=== PATIENT | male | born 1950 | race Caucasian/White ===

== ENCOUNTER → 2017-10-16 | Outpatient (CLI) | payer MEDICARE, BC ==
--- NOTE | 2017-10-16 13:15 | XR ---
EXAMINATION TYPE: XR shoulder limited RT DATE OF EXAM: 10/16/2017 CLINICAL HISTORY: Right shoulder pain after falling injury 3 months ago. TECHNIQUE: Three views of the right shoulder are obtained. COMPARISON: None. FINDINGS: Osseous structures are demineralized. There is no acute fracture/dislocation evident in the right shoulder. There is spurring and joint space loss acromioclavicular joint. Glenohumeral joint i s maintained. The visualized ribs are intact and unremarkable. IMPRESSION: There is no acute or healing fracture or dislocation in the right shoulder.
== END | disposition home or self-care (01) ==
LOC: RADXRMAIN 12:09
PROVIDERS: ATTEND Internal Medicine Geriatric Medicine
DX: M25.511 Pain in right shoulder (principal); Z87.828 Personal history of other (healed) physical injury and trauma

== ENCOUNTER 2018-03-02 16:44 | Inpatient (IN) | payer MEDICARE, BC ==
[2018-03-02] MEDS ORDERED: SODIUM CHLORIDE 0.9% 500 ML IV ONE (17:39)
[2018-03-02 18:08] LABS: Basophils % (A) 0 %; Eosinophils # (A) 0.1 k/uL (0-0.7); Eosinophils % (A) 1 %; HCT 40.5 % (39.0-53.0); HGB 13.6 gm/dL (13.0-17.5); Lymphocytes # (A) 1.5 k/uL (1.0-4.8); Lymphocytes % (A) 15 %; MCH 28.9 pg (25.0-35.0); MCHC 33.6 g/dL (31.0-37.0); MCV 86.2 fL (80.0-100.0); Mean Platelet Volume 7.3; Monocytes % (A) 10 %; Neutrophils # (A) 7.4 k/uL (1.3-7.7); Neutrophils % (A) 72 %; Platelet Count 194 k/uL (150-450); WBC 10.4 k/uL (3.8-10.6)
--- NOTE | 2018-03-02 18:15 | ED ---
Skin/Abscess/FB HPI <Tomás Lares - Last Filed: 03/02/18 19:09> - General Source: patient Mode of arrival: ambulatory Limitations: no limitations <Tiffanie Alvarez - Last Filed: 03/02/18 19:45> - General Chief complaint: Skin/Abscess/Foreign Body Stated complaint: RT LEG POSS INFECTION, DIABETIC Time Seen by Provider: 03/02/18 17:19 - History of Present Illness Initial comments: 67-year-old male patient presents the emergency department today for evaluation of worsening cellulitis to the right dorsal foot and ankle. Patient states that he noticed the redness and swelling on Wednesday, did see his primary care physician and was started on doxycycline. States that he has taken 4 doses of the doxycycline however the redness is spreading and the swelling is getting worse. Patient states that the area is painful. He denies any wounds or drainage. States that he did break the toenail off several days prior. Patient does have a history of diabetes and does take both oral medications and insulin. He denies any history of cellulitis. States he did have a temperature on Wednesday of 101F, has had no fever since. Denies taking any pain medication for his symptoms. Patient denies any recent shortness breath, chest pain, abdominal pain, nausea, vomiting, diarrhea, constipation, back pain, numbness, tingling, dizziness, weakness, hematuria, dysuria, urinary urgency, urinary frequency, headache, visual changes, or any other complaints. (Tiffanie Alvarez) - Related Data Home Medications Medication Instructions Recorded Confirmed Insulin NPH Human Isophane 35 unit SQ DAILY 04/05/16 03/02/18 [NovoLIN N] Insulin Regular [HumuLIN R] 25 units SQ AC-SUPPER 04/05/16 03/02/18 Latanoprost Ophth [Xalatan 0.005%] 1 drop BOTH EYES DAILY 04/05/16 03/02/18 Clopidogrel [Plavix] 75 mg PO DAILY 03/02/18 03/02/18 Doxycycline Hyclate [Vibramycin] 100 mg PO BID 03/02/18 03/02/18 Famotidine [Pepcid] 20 mg PO DAILY 03/02/18 03/02/18 Insulin NPH Human Isophane 25 unit SQ HS 03/02/18 03/02/18 [NovoLIN N] metFORMIN HCL [Glucophage] 1,000 mg PO HS 03/02/18 03/02/18 metFORMIN HCL [Glucophage] 500 mg PO DAILY 03/02/18 03/02/18 Previous Rx's Medication Instructions Recorded Aspirin 81 mg PO DAILY #30 chew 04/09/16 Carvedilol [Coreg] 3.125 mg PO AC-BRKFST #60 tab 04/09/16 Losartan [Cozaar] 25 mg PO DAILY #30 tab 04/09/16 Nitroglycerin Sl Tabs [Nitrostat] 0.4 mg SUBLINGUAL Q5M PRN #25 tab 04/09/16 Pravastatin Sodium [Pravachol] 20 mg PO DAILY #30 tab 04/09/16 amLODIPine [Norvasc] 2.5 mg PO DAILY #30 tab 04/09/16 Allergies Allergy/AdvReac Type Severity Reaction Status Date / Time lisinopril AdvReac Cough Verified 03/02/18 16:46 Review of Systems ROS Other: All systems not noted in ROS Statement are negative. <Tomás Lares - Last Filed: 03/02/18 19:09> ROS Other: All systems not noted in ROS Statement are negative. <Tiffanie Alvarez - Last Filed: 03/02/18 19:45> ROS Statement: Those systems with pertinent positive or pertinent negative responses have been documented in the HPI. Past Medical History Past Medical History: Cancer, Diabetes Mellitus, Hypertension, Myocardial Infarction (IA) Additional Past Medical History / Comment(s): Testicular cancer [place] [address] 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 Father Family Medical History: Cancer Additional Family Medical History / Comment(s): Father at age 84 from prostate cancer Brother(s) Family Medical History: Cancer Additional Family Medical History / Comment(s): Patient has 4 brothers with no major medical problems. Sister(s) Family Medical History: Cancer Additional Family Medical History / Comment(s): Patient has 2 sisters with no major medical problems. Daughter(s) Additional Family Medical History / Comment(s): Patient has 2 brothers with no major medical problems. <Tiffanie Alvarez M - Last Filed: 03/02/18 19:45> General Exam Limitations: no limitations General appearance: alert, in no apparent distress, other (This is a well- developed, well-nourished adult male patient in no acute distress. Vital signs upon presentation are temperature 98.1F, pulse 79, respirations 18, blood pressure 131/72, pulse ox 96% on room air.) Eye exam: Present: normal appearance, PERRL, EOMI. Absent: scleral icterus, conjunctival injection, periorbital swelling ENT exam: Present: normal exam, normal oropharynx, mucous membranes moist Respiratory exam: Present: normal lung sounds bilaterally. Absent: respiratory distress, wheezes, rales, rhonchi, stridor Cardiovascular Exam: Present: regular rate, normal rhythm, normal heart sounds. Absent: systolic murmur, diastolic murmur, rubs, gallop, clicks GI/Abdominal exam: Present: soft, normal bowel sounds. Absent: distended, tenderness, guarding, rebound, rigid Extremities exam: Present: full ROM, normal capillary refill, other (Right circumferential ankle and foot swelling. Erythema noted over the right anterior ankle and right dorsal foot. There is red streaking up the leg to about mid calf. Edema is pitting. Patient has good pedal and posttibial pulses.). Absent: normal inspection, tenderness, pedal edema, joint swelling, calf tenderness Neurological exam: Present: alert, oriented X3, CN II-XII intact Psychiatric exam: Present: normal affect, normal mood Skin exam: Present: warm, dry, intact, normal color. Absent: rash <Tiffanie Alvarez M - Last Filed: 03/02/18 19:45> Vital Signs 03/02/18 03/02/18 16:46 19:11 Temperature 98.1 F Pulse Rate 79 70 Respiratory 18 19 Rate Blood Pressure 131/72 158/79 O2 Sat by Pulse 96 99 Oximetry Medical Decision Making - Lab Data Result diagrams: 03/02/18 17:55 03/02/18 17:55 <Tomás Lares - Last Filed: 03/02/18 19:09> - Lab Data Result diagrams: 03/02/18 17:55 03/02/18 17:55 - Radiology Data Radiology results: report reviewed, image reviewed <Tiffanie Alvarez - Last Filed: 03/02/18 19:45> - Medical Decision Making Patient reevaluated by myself, Dr. Lares. Patient does have cellulitic appearing dorsal foot presenting to the ankle and above the midcalf. There is associated tenderness and swelling. Case was discussed in detail with Dr. Escobar , who will admit for Dr. Richardson. She does request Zosyn and consult with Dr. dean (Tomás Lares) 67 year-old male patient presented to the emergency department today for evaluation of sialitis to the right anterior ankle and foot. Physical examination did reveal erythema extending from the dorsal foot to the ankle with evidence of red streaking to approximately mid calf. Neurovascular status was intact. Patient denied any injury. We did obtain x-ray to rule out gas and osteomyelitis. We will start Zosyn keep patient in the hospital for evaluation by infectious disease. Did discuss findings, results, and plan with the patient and family. They are agreeable. My attending spoke to Dr. Gutierrez who accepts admission. (Tiffanie Alvarez) - Lab Data Lab Results 03/02/18 03/02/18 Range/Units 17:55 17:55 WBC 10.4 (3.8-10.6) k/uL RBC 4.70 (4.30-5.90) m/uL Hgb 13.6 (13.0-17.5) gm/dL Hct 40.5 (39.0-53.0) % MCV 86.2 (80.0-100.0) fL MCH 28.9 (25.0-35.0) pg MCHC 33.6 (31.0-37.0) g/dL RDW 14.0 (11.5-15.5) % Plt Count 194 (150-450) k/uL Neutrophils % 72 % Lymphocytes % 15 % Monocytes % 10 % Eosinophils % 1 % Basophils % 0 % Neutrophils # 7.4 (1.3-7.7) k/uL Lymphocytes # 1.5 (1.0-4.8) k/uL Monocytes # 1.0 (0-1.0) k/uL Eosinophils # 0.1 (0-0.7) k/uL Basophils # 0.0 (0-0.2) k/uL Sodium 137 (137-145) mmol/L Potassium 5.1 (3.5-5.1) mmol/L Chloride 103 (98-107) mmol/L Carbon Dioxide 22 (22-30) mmol/L Anion Gap 12 mmol/L BUN 33 H (9-20) mg/dL Creatinine 1.50 H (0.66-1.25) mg/dL Est GFR (CKD-EPI)AfAm 56 (>60 ml/min/1.73 sqM) Est GFR (CKD-EPI)NonAf 48 (>60 ml/min/1.73 sqM) Glucose 316 H (74-99) mg/dL Calcium 9.2 (8.4-10.2) mg/dL Total Bilirubin 0.8 (0.2-1.3) mg/dL AST 16 L (17-59) U/L ALT 28 (21-72) U/L Alkaline Phosphatase 75 (38-126) U/L Total Protein 6.3 (6.3-8.2) g/dL Albumin 3.8 (3.5-5.0) g/dL - Radiology Data 3 views of the right ankle are obtained. There is some soft tissue swelling around the ankle joint. I see no fracture nor dislocation. Joint spaces are fairly normal. Impression by Dr. Carlin shows soft tissue swelling with no fracture. 3 views of the right foot are obtained. Metatarsals are intact. There is no fracture or dislocation. Joint spaces are fairly normal. There are no erosions. Impression by Dr. Carlin shows negative right foot examined no sign of inflammatory arthritis. (Tiffanie Alvarez) Disposition <Tomás Lares - Last Filed: 03/02/18 19:09> Decision to Admit Reason: Admit from EC Decision Date: 03/02/18 Decision Time: 19:26 <Tiffanie Alvarez - Last Filed: 03/02/18 19:45> Clinical Impression: Cellulitis of right foot, Cellulitis of right ankle Disposition: ADMITTED IP TO THIS [facility] Condition: Serious
[2018-03-02 18:31] LABS: Albumin 3.8 g/dL (3.5-5.0); Calcium 9.2 mg/dL (8.4-10.2); Potassium 5.1 mmol/L (3.5-5.1); Total Bilirubin 0.8 mg/dL (0.2-1.3); Total Protein 6.3 g/dL (6.3-8.2)
[2018-03-02] MEDS ORDERED: ACETAMINOPHEN TAB 325 MG TAB PO PRN (19:13)
[2018-03-02] MEDS ORDERED: NALOXONE 0.4 MG/ML 1 ML VIAL IV PRN (19:13)
[2018-03-02] MEDS ORDERED: NITROGLYCERIN SL TABS 0.4 MG TAB SUBLINGUAL PRN (19:15)
[2018-03-02] MEDS ORDERED: SODIUM CHLORIDE 0.9% 1,000 ML IV SCH (19:15)
[2018-03-02] MEDS ORDERED: PIPERACILLIN-TAZOBACTAM 3.375 GM in DEXTROSE/WATER 1 50ML.BAG IVPB STA (19:16)
--- NOTE | 2018-03-02 19:38 | XR ---
EXAMINATION TYPE: XR ankle complete RT DATE OF EXAM: 03/02/2018 COMPARISON: NONE HISTORY: Ankle pain TECHNIQUE: 3 views FINDINGS: There is some soft tissue swelling around the ankle joint. I see no fracture nor dislocatio n. Joint spaces are fairly normal. IMPRESSION: Soft tissue swelling. No fracture.
--- NOTE | 2018-03-02 19:38 | XR ---
EXAMINATION TYPE: XR foot complete RT DATE OF EXAM: 03/02/2018 COMPARISON: NONE HISTORY: Foot pain and swelling TECHNIQUE: 3 views FINDINGS: Metatarsals are intact. I see no fracture nor dislocation. Joint spaces are fairly normal. There are no erosions. IMPRESSION: Negative right foot exam. No sign of inflammatory arthritis.
[2018-03-02 20:25] LABS: Glucose,Whole Blood 288 mg/dL (75-99)
[2018-03-02] MEDS: metFORMIN 500 MG TAB PO SCH (20:47)
[2018-03-02] MEDS ORDERED: INSULIN NPH 300 UNIT/3 ML VIAL SQ SCH (21:00)
[2018-03-02 22:59] LABS: Glucose,Whole Blood 300 mg/dL (75-99)
[2018-03-02] MEDS ORDERED: INSULIN ASPART 100 UNIT/ML 1 ML 10 ML VIAL SQ ONE (23:33)
[2018-03-03 02:22] LABS: Glucose,Whole Blood 141 mg/dL (75-99)
[2018-03-03 03:49] LABS: Hemoglobin A1C 7.9 % (4.0-6.0)
[2018-03-03] MEDS: INSULIN ASPART 100 UNIT/ML 1 ML 10 ML VIAL SQ SCH ×4 (07:18→21:11)
[2018-03-03 07:23] LABS: Glucose,Whole Blood 76 mg/dL (75-99)
[2018-03-03] MEDS: LOSARTAN 25 MG TAB PO SCH (07:29)
[2018-03-03] MEDS: PRAVASTATIN SODIUM 20 MG TAB PO SCH (07:29)
[2018-03-03] MEDS: LATANOPROST 0.005% OPHTH DROPS 2.5 ML BTL BOTH EYES SCH (07:29)
[2018-03-03] MEDS: CARVEDILOL 3.125 MG TAB PO SCH (07:29)
[2018-03-03] MEDS: ASPIRIN 81 MG PO SCH (07:29)
[2018-03-03] MEDS: metFORMIN 500 MG TAB PO SCH ×2 (07:29→21:10)
[2018-03-03] MEDS: amLODIPine 2.5 MG TAB PO SCH (07:29)
[2018-03-03] MEDS: FAMOTIDINE 20 MG TAB PO SCH (07:29)
[2018-03-03] MEDS: CLOPIDOGREL 75 MG TAB PO SCH (07:30)
[2018-03-03] MEDS ORDERED: PIPERACILLIN-TAZOBACTAM 3.375 GM in DEXTROSE/WATER 1 50ML.BAG IVPB SCH (08:00)
[2018-03-03] MEDS: INSULIN NPH 300 UNIT/3 ML VIAL SQ SCH ×2 (08:29→21:11)
[2018-03-03 08:55] LABS: Basophils % (A) 0 %; Eosinophils # (A) 0.1 k/uL (0-0.7); Eosinophils % (A) 1 %; HCT 38.6 % (39.0-53.0); HGB 12.9 gm/dL (13.0-17.5); Lymphocytes # (A) 1.2 k/uL (1.0-4.8); Lymphocytes % (A) 15 %; MCH 28.5 pg (25.0-35.0); MCHC 33.4 g/dL (31.0-37.0); MCV 85.2 fL (80.0-100.0); Mean Platelet Volume 6.8; Monocytes # (A) 0.7 k/uL (0-1.0); Monocytes % (A) 9 %; Neutrophils # (A) 5.6 k/uL (1.3-7.7); Neutrophils % (A) 72 %; Platelet Count 203 k/uL (150-450); RBC 4.53 m/uL (4.30-5.90); RDW 13.9 % (11.5-15.5); WBC 7.8 k/uL (3.8-10.6)
[2018-03-03 11:59] LABS: Glucose,Whole Blood 133 mg/dL (75-99)
--- NOTE | 2018-03-03 14:34 | P.HPIM ---
History of Present Illness H&P Date: 03/03/18 Chief Complaint: Lower extremity swelling 64 years old male patient of Dr. Richardson and Dr. Silva endocrinology with past medical history of testicular cancer, type 2 diabetes on insulin, hypertension, tobacco use and dependence presented with worsening right lower extremity swelling for the past 3 days. Patient was seen by the primary care physician and was started on doxycycline with no improvement. Since patient is a diabetic and the swelling worsened he was concerned in came to the ER. Foot x -ray and ankle x-ray was negative for any osteomyelitis. ESR was elevated, WBC 7.8, glucose 300, hemoglobin 12.9 he had been slightly elevated from baseline which is 1.2- 1.4. HbA1c 7.9. Patient initiated on vancomycin and Zosyn in the ER. Infectious disease consulted. Review of Systems Constitutional: Denies chills, Denies fever, Denies lethargy, Denies malaise, Denies poor appetite, Denies weakness, Denies weight loss Eyes: denies decreased vision, denies diplopia, denies discharge, denies pain Ears: deny: decreased hearing Ears, nose, mouth and throat: Denies dental pain, Denies headache, Denies nasal discharge, Denies nose pain Cardiovascular: Denies chest pain, Denies decreased exercise tolerance, Denies edema, Denies high blood pressure, Denies irregular heart beat, Denies palpitations, Denies paroxysmal nocturnal dyspnea, Denies rapid heart beat, Denies shortness of breath Respiratory: Denies congestion, Denies cough, Denies cough with sputum, Denies dyspnea, Denies home oxygen, Denies wheezing Gastrointestinal: Denies abdominal pain, Denies change in bowel habits, Denies coffee ground emesis, Denies early satiety, Denies excessive gas, Denies heartburn, Denies hematemesis, Denies hematochezia, Denies loss of appetite, Denies nausea, Denies vomiting Genitourinary: Denies dysuria, Denies flank pain, Denies kidney stones, Denies menorrhagia, Denies urgency, Denies urinary frequency Musculoskeletal: Denies gait dysfunction, Denies limitation of motion, Denies morning stiffness, Denies muscle cramps Integumentary: Right lower extremity edema with redness and swelling with history of ingrown nails Denies darkening of skin Neurological: Denies balance difficulties, Denies change in speech, Denies double vision, Denies gait dysfunction, Denies loss of vision, Denies motor disturbance, Denies numbness, Denies paralysis, Denies paresthesias, Denies seizures Psychiatric: Denies anxiety, Denies depression Endocrine: Denies excessive sweating, Denies excessive thirst, Denies high blood sugars, Denies palpitations Hematologic/Lymphatic: Denies easy bruising, Denies lymphadenopathy Past Medical History Past Medical History: Coronary Artery Disease (CAD), Cancer, Chest Pain / Angina , Diabetes Mellitus, Hyperlipidemia, Hypertension, Myocardial Infarction (CT) Additional Past Medical History / Comment(s): Testicular cancer in [id number] followed by xiao Rodgers in [facility] Last Myocardial Infarction Date:: 04/05/16 History of Any Multi-Drug Resistant Organisms: None Reported Past Surgical History: Heart Catheterization With Stent Additional Past Surgical History / Comment(s): 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 Father Family Medical History: Cancer Additional Family Medical History / Comment(s): Father at age 84 from prostate cancer Brother(s) Family Medical History: Cancer Additional Family Medical History / Comment(s): Patient has 4 brothers with no major medical problems. Sister(s) Family Medical History: Cancer Additional Family Medical History / Comment(s): Patient has 2 sisters with no major medical problems. Daughter(s) Additional Family Medical History / Comment(s): Patient has 2 brothers with no major medical problems. Medications and Allergies Home Medications Medication Instructions Recorded Confirmed Type Insulin NPH Human Isophane 35 unit SQ DAILY 04/05/16 03/02/18 History [NovoLIN N] Insulin Regular [HumuLIN R] 25 units SQ AC-SUPPER 04/05/16 03/02/18 History Latanoprost Ophth [Xalatan 0.005%] 1 drop BOTH EYES DAILY 04/05/16 03/02/18 History Aspirin 81 mg PO DAILY #30 chew 04/09/16 03/02/18 Rx Carvedilol [Coreg] 3.125 mg PO AC-BRKFST #60 tab 04/09/16 03/02/18 Rx Losartan [Cozaar] 25 mg PO DAILY #30 tab 04/09/16 03/02/18 Rx Nitroglycerin Sl Tabs [Nitrostat] 0.4 mg SUBLINGUAL Q5M PRN #25 tab 04/09/1607/10 Rx Pravastatin Sodium [Pravachol] 20 mg PO DAILY #30 tab 04/09/16 03/02/18 Rx amLODIPine [Norvasc] 2.5 mg PO DAILY #30 tab 04/09/16 03/02/18 Rx Clopidogrel [Plavix] 75 mg PO DAILY 03/02/18 03/02/18 History Doxycycline Hyclate [Vibramycin] 100 mg PO BID 03/02/18 03/02/18 History Famotidine [Pepcid] 20 mg PO DAILY 03/02/18 03/02/18 History Insulin NPH Human Isophane 25 unit SQ HS 03/02/18 03/02/18 History [NovoLIN N] metFORMIN HCL [Glucophage] 1,000 mg PO HS 03/02/18 03/02/18 History metFORMIN HCL [Glucophage] 500 mg PO DAILY 03/02/18 03/02/18 History Allergies Allergy/AdvReac Type Severity Reaction Status Date / Time lisinopril AdvReac Cough Verified 03/02/18 16:46 Physical Exam Vitals: Vital Signs Temp Pulse Pulse Resp BP BP Pulse Ox 03/03/18 08:00 16 03/03/18 05:55 98.5 F 69 16 126/67 98 03/02/18 22:50 98.6 F 70 16 114/63 94 L 03/02/18 22:15 70 03/02/18 20:30 97.0 F L 70 16 144/76 97 03/02/18 20:12 18 03/02/18 20:11 98.4 F 03/02/18 19:53 18 03/02/18 19:11 70 19 158/79 99 03/02/18 16:46 98.1 F 79 18 131/72 96 Intake and Output 03/02/18 03/03/18 03/03/18 22:59 06:59 14:59 Intake Total 240 Balance 240 Intake: Oral 240 Other: # Voids 1 2 3 Weight 111.13 kg - Constitutional General appearance: cooperative, no acute distress, obese - EENT Eyes: anicteric sclerae, PERRLA, normal appearance ENT: hearing grossly normal - Neck Neck: no lymphadenopathy, normal ROM, no other, no rigidity, no stridor, no thyromegaly - Respiratory Respiratory: bilateral: CTA, negative: diminished, dullness, rales, rhonchi - Cardiovascular Rhythm: regular Heart sounds: normal: S1, S2 Abnormal Heart Sounds: no systolic murmur, no diastolic murmur, no rub, no S3 Gallop, no S4 Gallop, no click, no other - Gastrointestinal General gastrointestinal: normal bowel sounds, soft - Integumentary Integumentary: Right lower extremity swelling prominent over the dorsal aspect of the right foot and ankle with improvement in swelling over the littlejohn. No open ulcers present. Patient did have an ingrown nail with no sign of infection - Neurologic Neurologic: CNII-XII intact - Musculoskeletal Musculoskeletal: gait normal, strength equal bilaterally - Psychiatric Psychiatric: A&O x's 3, appropriate affect Results CBC & Chem 7: 03/03/18 08:34 03/02/18 17:55 Labs: Abnormal Lab Results - Last 24 Hours (Table) 03/02/18 03/02/18 03/02/18 Range/Units 17:55 17:55 20:21 Hgb (13.0-17.5) gm/dL Hct (39.0-53.0) % BUN 33 H (9-20) mg/dL Creatinine 1.50 H (0.66-1.25) mg/dL Glucose 316 H (74-99) mg/dL POC Glucose (mg/dL) 288 H (75-99) mg/dL Hemoglobin A1c 7.9 H (4.0-6.0) % AST 16 L (17-59) U/L 03/02/18 03/03/18 03/03/18 Range/Units 22:55 02:21 08:34 Hgb 12.9 L (13.0-17.5) gm/dL Hct 38.6 L (39.0-53.0) % BUN (9-20) mg/dL Creatinine (0.66-1.25) mg/dL Glucose (74-99) mg/dL POC Glucose (mg/dL) 300 H 141 H (75-99) mg/dL Hemoglobin A1c (4.0-6.0) % AST (17-59) U/L 03/03/18 Range/Units 11:52 Hgb (13.0-17.5) gm/dL Hct (39.0-53.0) % BUN (9-20) mg/dL Creatinine (0.66-1.25) mg/dL Glucose (74-99) mg/dL POC Glucose (mg/dL) 133 H (75-99) mg/dL Hemoglobin A1c (4.0-6.0) % AST (17-59) U/L Thrombosis Risk Factor Assmnt - DVT/VTE Prophylaxis DVT/VTE Prophylaxis: Mechanical Prophylaxis ordered - Choose All That Apply Any of the Below Risk Factors Present?: Yes Each Factor Represents 1 point: Swollen legs (current) Other Risk Factors: Yes Each Risk Factor Represents 2 Points: Age 61-74 years Thrombosis Risk Factor Assessment Total Risk Factor Score: 3 Thrombosis Risk Factor Assessment Level: Moderate Risk Assessment and Plan Plan: #1 right lower extremity cellulitis failed outpatient treatment. Switch antibiotic to Unasyn as per infectious disease recommendations. #2 history of coronary artery disease with stenting of LAD. Continue aspirin 81 mg daily, and Plavix 75 mg daily Coreg 3.125 mg daily, Cozaar 25 mg daily, Pravachol 20 mg daily #3 type 2 diabetes. Hypoglycemia this morning . Patient takes metformin 500 before meals breakfast and 1000 mg daily at bedtime with NPH 35 units in the morning and 25 units at bedtime. Patient also takes Humulin R 25 units subcu before supper. With his reduce nighttime insulin to 15 units at bedtime and reduce Humulin R to 15 units at bedtime. Patient follows [facility] end[facility] Dr. SILVA, A1c 7.9 #4 hyperlipidemia continue Pravachol 20 mg daily #5 hypertension continue Coreg 3.125 mg daily, on losartan 25 mg by mouth daily #6 Chronic kidney disease 3. Patient's creatinine is not far from the baseline. Will monitor with CMP tomorrow morning. #7 disposition patient will be admitted for at least 2 inpatient nights. #8 history of glaucoma continue latanoprost twice daily
--- NOTE | 2018-03-03 14:55 | US ---
EXAMINATION TYPE: US venous doppler duplex LE RT DATE OF EXAM: 03/03/2018 12:45 PM COMPARISON: NONE CLINICAL HISTORY: edema. infection SIDE PERFORMED: Right TECHNIQUE: The lower extremity deep venous system is examined utilizing real time linear array sonog zoey with graded compression, doppler sonography and color-flow sonography. VESSELS IMAGED: External Iliac Vein (EIV) Common Femoral Vein Deep Femoral Vein Greater Saphenous Vein * Femoral Vein Popliteal Vein Small Saphenous Vein * Proximal Calf Veins (* superficial vessels) Right Leg: Negative for DVT Grayscale, color doppler, spectral doppler imaging performed of the deep veins of the right lower ext remity. There is normal flow, compressibility, vascular waveforms. IMPRESSION: No ultrasound evidence for acute DVT in the right lower extremity.
[2018-03-03] MEDS: AMPICILLIN-SULBACTAM 3 GM in SODIUM CHLORIDE 0.9% 100 ML IVPB SCH ×3 (15:01→23:00)
[2018-03-03] MEDS ORDERED: INSULIN REGULAR 100 UNIT/ML VIAL SQ SCH (17:30)
[2018-03-03 17:36] LABS: Glucose,Whole Blood 208 mg/dL (75-99)
[2018-03-03] MEDS: INSULIN REGULAR 100 UNIT/ML VIAL SQ SCH (17:57)
[2018-03-03 21:03] LABS: Glucose,Whole Blood 131 mg/dL (75-99)
--- NOTE | 2018-03-03 22:54 | CONS ---
CONSULTATION DATE OF SERVICE: 03/03/2018. REASON FOR CONSULTATION: Right foot and leg cellulitis. HISTORY OF PRESENT ILLNESS: The patient is a 67-year-old male who started having right leg swelling and redness apparently started about 3 days prior to presentation to the hospital. The patient not report any history of any trauma or any skin breakdown with worsening swelling and redness and pain. More of a dull aching pain 3 to 4/10, and no radiation. The patient went to see his primary care physician and the patient was started on doxycycline. Despite taking doxycycline for 2 days, the patient did not have any improvement. Hence he presented to the [facility] ER. The patient has been evaluated by the ER physician. Did have x-rays of the foot and ankle area which was negative for any bony abnormality did show some soft tissue swelling though. The patient white count normal 7.8. The patient was started on Zosyn though he did receive a dose of Vanco in the ER and admitted hospital. Infectious disease was consulted for further recommendations regarding antibiotic therapy. As of this afternoon, the patient did mention that the swelling and redness seemed to have slightly improved compared to yesterday when he presented as most of his leg was swollen compared to mostly now at the anterior portion of his right leg. The patient did not recall any history of cellulitis in this leg previously or any trauma. REVIEW OF SYSTEMS: CONSTITUTIONAL: Positive for weakness, some chills but denies any fever. Eyes: No complaint. ENT no complaint. Respiratory no complaint. Cardiovascular no complaint. Genitourinary no complaint. Gastrointestinal: No complaint. Musculoskeletal as per HPI. Integumentary as per HPI. Psychological no complaint. Endocrine no complaint. Neurological no complaint. PAST MEDICAL HISTORY: Coronary artery disease. Diabetes mellitus, hypertension, hyperlipidemia, MD, and testicular cancer. PAST SURGICAL HISTORY: PTCA with stent. were removed from the stomach, bilateral cataract surgery and surgery for testicular cancer. SOCIAL HISTORY: Remote history of smoking. No drinking or drug use. FAMILY HISTORY: No pertinent findings noticed. ALLERGIES: LISINOPRIL. MEDICATION: Include the patient currently on Zosyn 3.375 q.6h. he is on Pravachol, Nitrostat, Narcan, Glucophage, Cozaar, Xalatan, Humilin-R, Pepcid, Plavix, Coreg, aspirin, Norvasc and Tylenol. EXAMINATION: Blood pressure 146/75 with a pulse of 55, temperature 98.4. He is 96% on room air. General description is an elderly male lying in bed in no distress. HEENT: Shows no pallor or scleral icterus. Oral mucosa membranes moist. No pharyngeal erythema or thrush. Neck trachea central. No thyromegaly. Lungs unlabored breathing. Clear to auscultation anteriorly. No wheeze or crackles. Heart S1, S2. Regular rate and rhythm. ABDOMEN: Soft, no tenderness. No guarding or rigidity. EXTREMITIES: No edema of feet. Examination of the right leg has erythema on the dorsum of the right ankle and foot area slightly warm to touch. No skin breakdown. No drainage. The patient did not have any pain on movement of his right ankle joint. No evidence of athlete's foot. Neurological: Patient is awake, alert, oriented x3. Mood and affect normal. LABS: Hemoglobin is 12.8, white count 7.8. BUN of 33, creatinine 1.50. Electrolytes have been normal. Liver enzymes are normal. Lower extremity Doppler negative for DVT. Blood culture so far negative. DIAGNOSTIC IMPRESSION AND PLAN: 1. Patient with acute right lower extremity cellulitis. The patient did have diffuse swelling and redness likely from a gram-positive skin earnest. This seems to have failed to respond to the outpatient oral doxycycline therapy. The patient took for about 2 days in a patient who do have improvement with Zosyn. More likely point was either streptococcal or gram-negative pathogen and less likely an MRSA. 2. Patient does have elevated creatinine, high risk of nephrotoxicity from Bactrim or the vancomycin use. PLAN: 1. Mingo the area of redness. 2. Ruiz wrap from just above the toe to below the knee. 3. Discontinue Zosyn and start the patient on Unasyn 3 g every 6 hours. If the patient shows considerable improvement in the next 24 hours, he will be able to be transitioned to oral Augmentin 875 b.i.d. for about 10 days with close outpatient followup. Plan of care was discussed with the admitting physician. MMODL / IJN: [id number] /
[2018-03-04] MEDS: AMPICILLIN-SULBACTAM 3 GM in SODIUM CHLORIDE 0.9% 100 ML IVPB SCH ×4 (04:48→23:37)
[2018-03-04] MEDS: amLODIPine 2.5 MG TAB PO SCH (06:35)
[2018-03-04] MEDS: CARVEDILOL 3.125 MG TAB PO SCH (06:35)
[2018-03-04] MEDS: LOSARTAN 25 MG TAB PO SCH (06:35)
[2018-03-04] MEDS: INSULIN ASPART 100 UNIT/ML 1 ML 10 ML VIAL SQ SCH ×4 (08:08→21:22)
[2018-03-04] MEDS: CLOPIDOGREL 75 MG TAB PO SCH (08:08)
[2018-03-04] MEDS: PRAVASTATIN SODIUM 20 MG TAB PO SCH (08:09)
[2018-03-04] MEDS: metFORMIN 500 MG TAB PO SCH ×2 (08:09→21:23)
[2018-03-04] MEDS: INSULIN NPH 300 UNIT/3 ML VIAL SQ SCH ×2 (08:09→21:22)
[2018-03-04] MEDS: ASPIRIN 81 MG PO SCH (08:09)
[2018-03-04] MEDS: LATANOPROST 0.005% OPHTH DROPS 2.5 ML BTL BOTH EYES SCH (08:09)
[2018-03-04] MEDS: FAMOTIDINE 20 MG TAB PO SCH (08:10)
[2018-03-04 08:11] LABS: Glucose,Whole Blood 128 mg/dL (75-99)
[2018-03-04 11:42] LABS: Glucose,Whole Blood 191 mg/dL (75-99)
--- NOTE | 2018-03-04 13:33 | P.PN ---
Subjective Progress Note Date: 03/04/18 64 years old male patient of Dr. Richardson and Dr. Silva endocrinology with past medical history of testicular cancer, type 2 diabetes on insulin, hypertension, tobacco use and dependence presented with worsening right lower extremity swelling for the past 3 days. Patient was seen by the primary care physician and was started on doxycycline with no improvement. Since patient is a diabetic and the swelling worsened he was concerned in came to the ER. Foot x -ray and ankle x-ray was negative for any osteomyelitis. ESR was elevated, WBC 7.8, glucose 300, hemoglobin 12.9 he had been slightly elevated from baseline which is 1.2- 1.4. HbA1c 7.9. Patient initiated on vancomycin and Zosyn in the ER. Infectious disease consulted. 03/04. Patient's swelling appears to have improved but has: 1 and 1 cm in size area concerning for underlying fluid accumulation. Continue IV antibiotics for today. Hold discharge for possible need for I&D. If cellulitis looked better patient can be discharged. Objective - Vital Signs Vital signs: Vital Signs Temp 97.8 F 03/04/18 06:13 Pulse 69 03/04/18 06:13 Resp 16 03/04/18 06:13 BP 183/91 03/04/18 06:13 Pulse Ox 96 03/04/18 06:13 Intake & Output 03/03/18 03/04/18 03/04/18 18:59 06:59 18:59 Intake Total 240 260 Balance 240 260 Intake: IV 260 Ampicillin-Sulbactam 3 gm 100 In Sodium Chloride 0.9% 100 ml @ 100 mls/hr IVPB Q6HR MUNIRA Rx#:[id number] Sodium Chloride 0.9% 1, 160 000 ml @ 20 mls/hr IV . Q24H MUNIRA Rx#:[id number] Oral 240 Other: Voiding Method Toilet # Voids 3 2 - Exam - Constitutional General appearance: cooperative, no acute distress, obese - EENT Eyes: anicteric sclerae, PERRLA, normal appearance ENT: hearing grossly normal - Neck Neck: no lymphadenopathy, normal ROM, no other, no rigidity, no stridor, no thyromegaly - Respiratory Respiratory: bilateral: CTA, negative: diminished, dullness, rales, rhonchi - Cardiovascular Rhythm: regular Heart sounds: normal: S1, S2 Abnormal Heart Sounds: no systolic murmur, no diastolic murmur, no rub, no S3 Gallop, no S4 Gallop, no click, no other - Gastrointestinal General gastrointestinal: normal bowel sounds, soft - Integumentary Integumentary: Right lower extremity swelling prominent over the dorsal aspect of the right foot and ankle with improvement in swelling over the littlejohn. No open ulcers present. 1x1 cm induration concerning for underlying fluid collection - Neurologic Neurologic: CNII-XII intact - Musculoskeletal Musculoskeletal: gait normal, strength equal bilaterally - Psychiatric Psychiatric: A&O x's 3, appropriate affect - Labs CBC & Chem 7: 03/03/18 08:34 03/02/18 17:55 Labs: Abnormal Lab Results - Last 24 Hours (Table) 03/03/18 03/03/18 03/04/18 Range/Units 17:05 21:02 08:08 POC Glucose (mg/dL) 208 H 131 H 128 H (75-99) mg/dL 03/04/18 Range/Units 11:39 POC Glucose (mg/dL) 191 H (75-99) mg/dL Microbiology - Last 24 Hours (Table) 03/02/18 17:55 Blood Culture - Preliminary Blood No Growth after 24 hours Assessment and Plan Plan: #1 right lower extremity cellulitis failed outpatient treatment. Switch antibiotic to Unasyn as per infectious disease recommendations. Will switch to augmentin tomorrow for discharge if I and D not needed #2 history of coronary artery disease with stenting of LAD. Continue aspirin 81 mg daily, and Plavix 75 mg daily Coreg 3.125 mg daily, Cozaar 25 mg daily, Pravachol 20 mg daily #3 type 2 diabetes. Hypoglycemia this morning . Patient takes metformin 500 before meals breakfast and 1000 mg daily at bedtime with NPH 35 units in the morning and 25 units at bedtime. Patient also takes Humulin R 25 units subcu before supper. With his reduce nighttime insulin to 15 units at bedtime and reduce Humulin R to 15 units at bedtime. Patient follows [facility] endocrin[facility] Dr. SILVA, A1c 7.9 #4 hyperlipidemia continue Pravachol 20 mg daily #5 hypertension continue Coreg 3.125 mg daily, on losartan 25 mg by mouth daily #6 Chronic kidney disease 3. Patient's creatinine is not far from the baseline. Will monitor with CMP tomorrow morning. #7 disposition patient will be admitted for at least 2 inpatient nights. #8 history of glaucoma continue latanoprost twice daily
[2018-03-04 16:57] LABS: Glucose,Whole Blood 162 mg/dL (75-99)
[2018-03-04] MEDS: INSULIN REGULAR 100 UNIT/ML VIAL SQ SCH (17:28)
[2018-03-04 20:52] LABS: Glucose,Whole Blood 249 mg/dL (75-99)
[2018-03-05] MEDS: AMPICILLIN-SULBACTAM 3 GM in SODIUM CHLORIDE 0.9% 100 ML IVPB SCH ×2 (05:44→12:34)
[2018-03-05 07:43] LABS: Glucose,Whole Blood 147 mg/dL (75-99)
[2018-03-05] MEDS: INSULIN ASPART 100 UNIT/ML 1 ML 10 ML VIAL SQ SCH ×2 (07:43→12:39)
[2018-03-05] MEDS: FAMOTIDINE 20 MG TAB PO SCH (07:44)
[2018-03-05] MEDS: LATANOPROST 0.005% OPHTH DROPS 2.5 ML BTL BOTH EYES SCH (07:44)
[2018-03-05] MEDS: metFORMIN 500 MG TAB PO SCH (07:44)
[2018-03-05] MEDS: CARVEDILOL 3.125 MG TAB PO SCH (07:44)
[2018-03-05] MEDS: INSULIN NPH 300 UNIT/3 ML VIAL SQ SCH (07:44)
[2018-03-05] MEDS: ASPIRIN 81 MG PO SCH (07:45)
[2018-03-05] MEDS: LOSARTAN 25 MG TAB PO SCH (07:45)
[2018-03-05] MEDS: PRAVASTATIN SODIUM 20 MG TAB PO SCH (07:45)
[2018-03-05] MEDS: amLODIPine 2.5 MG TAB PO SCH (07:45)
[2018-03-05] MEDS: CLOPIDOGREL 75 MG TAB PO SCH (07:45)
[2018-03-05 07:48] VITALS: BP 170/85; PULSE 69; RESP 16; TEMP 97.6
--- NOTE | 2018-03-05 10:20 | P.DS ---
Providers Date of admission: 03/02/18 19:10 Attending physician: Petar Gutierrez MD Consults: 03/02/18 19:13 Consult Physician Routine Consulting Provider: Keegan Washington Consult Reason/Comments: Cellulitis Do you want consulting provider notified?: Yes Primary care physician: [facility] Course: This is 67 years old male who presented to the hospital with right lower extremity cellulitis patient was started on IV antibiotics and improved dramatically patient was seen by infectious disease who recommended on discharge to be switched to oral antibiotics including Augmentin 875 mg twice daily for total of 10 days and to be followed closely outpatient by his primary care physician patient was up ambulating in the garrett tolerating diet denying any pain and wanted to go home to follow-up with his primary care physician closely patient felt sterile from the medical standpoint and was discharged Patient Condition at Discharge: Serious Plan - Discharge Summary Discharge Rx Participant: No New Discharge Prescriptions: No Action Insulin NPH Human Isophane [NovoLIN N] 35 unit SQ DAILY Insulin Regular [HumuLIN R] 25 units SQ AC-SUPPER Latanoprost Ophth [Xalatan 0.005%] 1 drop BOTH EYES DAILY Aspirin 81 mg PO DAILY #30 chew Carvedilol [Coreg] 3.125 mg PO AC-BRKFST #60 tab Losartan [Cozaar] 25 mg PO DAILY #30 tab Nitroglycerin Sl Tabs [Nitrostat] 0.4 mg SUBLINGUAL Q5M PRN #25 tab PRN Reason: Chest Pain Pravastatin Sodium [Pravachol] 20 mg PO DAILY #30 tab amLODIPine [Norvasc] 2.5 mg PO DAILY #30 tab Insulin NPH Human Isophane [NovoLIN N] 25 unit SQ HS Famotidine [Pepcid] 20 mg PO DAILY Doxycycline Hyclate [Vibramycin] 100 mg PO BID Clopidogrel [Plavix] 75 mg PO DAILY metFORMIN HCL [Glucophage] 500 mg PO DAILY metFORMIN HCL [Glucophage] 1,000 mg PO HS Discharge Medication List Insulin NPH Human Isophane [NovoLIN N] 35 unit SQ DAILY 04/05/16 [History] Insulin Regular [HumuLIN R] 25 units SQ AC-SUPPER 04/05/16 [History] Latanoprost Ophth [Xalatan 0.005%] 1 drop BOTH EYES DAILY 04/05/16 [History] Aspirin 81 mg PO DAILY #30 chew 04/09/16 [Rx] Carvedilol [Coreg] 3.125 mg PO AC-BRKFST #60 tab 04/09/16 [Rx] Losartan [Cozaar] 25 mg PO DAILY #30 tab 04/09/16 [Rx] Nitroglycerin Sl Tabs [Nitrostat] 0.4 mg SUBLINGUAL Q5M PRN #25 tab 04/09/16 [Rx ] Pravastatin Sodium [Pravachol] 20 mg PO DAILY #30 tab 04/09/16 [Rx] amLODIPine [Norvasc] 2.5 mg PO DAILY #30 tab 04/09/16 [Rx] Clopidogrel [Plavix] 75 mg PO DAILY 03/02/18 [History] Doxycycline Hyclate [Vibramycin] 100 mg PO BID 03/02/18 [History] Famotidine [Pepcid] 20 mg PO DAILY 03/02/18 [History] Insulin NPH Human Isophane [NovoLIN N] 25 unit SQ HS 03/02/18 [History] metFORMIN HCL [Glucophage] 1,000 mg PO HS 03/02/18 [History] metFORMIN HCL [Glucophage] 500 mg PO DAILY 03/02/18 [History] Follow up Appointment(s)/Referral(s): Cassius Richardson MD [Primary Care Provider] - 1-2 days Keegan Washington MD [STAFF PHYSICIAN] - 1 Week
[2018-03-05 12:36] LABS: Glucose,Whole Blood 224 mg/dL (75-99)
== END 2018-03-05 13:01 | disposition home or self-care (01) | DRG 603 ==
LOC: EC 16:44 → 4MS4W 19:10
PROVIDERS: ADMIT Internal Medicine; ATTEND Internal Medicine
DX: L03.115 Cellulitis of right lower limb (principal); E11.22 Type 2 diabetes mellitus with diabetic chronic kidney disease; E11.649 Type 2 diabetes mellitus with hypoglycemia without coma; N18.3 Chronic kidney disease, stage 3 (moderate); I12.9 Hypertensive chronic kidney disease with stage 1 through stage 4 chronic kidney disease, or unspecified chronic kidney disease; E78.5 Hyperlipidemia, unspecified; H40.9 Unspecified glaucoma; I25.10 Atherosclerotic heart disease of native coronary artery without angina pectoris; I25.2 Old myocardial infarction; Z79.02 Long term (current) use of antithrombotics/antiplatelets; Z79.82 Long term (current) use of aspirin; Z79.4 Long term (current) use of insulin; Z79.899 Other long term (current) drug therapy; Z85.47 Personal history of malignant neoplasm of testis; Z95.5 Presence of coronary angioplasty implant and graft; Z87.891 Personal history of nicotine dependence; Z98.42 Cataract extraction status, left eye; Z98.41 Cataract extraction status, right eye; Z96.1 Presence of intraocular lens; Z88.8 Allergy status to other drugs, medicaments and biological substances; Z80.42 Family history of malignant neoplasm of prostate
CPT/HCPCS: 36415; 80053; 83036; 85025; 87040; 99284

== ENCOUNTER → 2018-07-04 | Outpatient (CLI) | payer MEDICARE, BC ==
[2018-07-04 09:23] LABS: Albumin 4.1 g/dL (3.5-5.0); Calcium 9.9 mg/dL (8.4-10.2); Potassium 5.7 mmol/L (3.5-5.1); Total Bilirubin 0.5 mg/dL (0.2-1.3); Uric Acid 6.3 mg/dL (3.5-8.5)
--- NOTE | 2018-07-04 11:07 | US ---
EXAMINATION TYPE: US abdomen complete DATE OF EXAM: 07/04/2018 COMPARISON: NONE CLINICAL HISTORY: R10.84 Generalized abdominal pain. EXAM MEASUREMENTS: Liver Length: 16.6 cm Gallbladder Wall: 0.2 cm CBD: 0.3 cm Spleen: 12.7 cm Right Kidney: 9.4 x 6.3 x 5.1 cm Left Kidney: 11.3 x 5.4 x 5.3 cm Patient of large body habitus with severe overlying bowel gas. Technically difficult study. Pancreas: Obscured by bowel gas Liver: Increased attenuation Gallbladder: partially obscured by overlying bowel gas, portions visualized wnl Evidence for sonographic Landaverde's sign: no CBD: wnl Spleen: wnl Right Kidney: probable cyst measuring 1.4 x 1.6 x 1.7cm, difficult to exclude low-level internal ech oes Left Kidney: cyst noted measuring 1.0 x 0.9 x 1.1cm, measures larger than right Upper IVC: wnl Abd Aorta: seen only mid, mid appears wnl There is no ascites. IMPRESSION: Coarse echotexture within the liver could be due to underlying hepatic steatosis. Small c ysts left kidney, right kidney with somewhat limited evaluation, follow-up recommended for better tali luation of possible cysts, consider short interval follow-up
[2018-07-04 18:56] LABS: Hemoglobin A1C 7.3 % (4.0-6.0)
== END ==
LOC: RADUSWWP 07:26
PROVIDERS: ATTEND Internal Medicine Geriatric Medicine
DX: R10.84 Generalized abdominal pain (principal); E78.00 Pure hypercholesterolemia, unspecified; E11.22 Type 2 diabetes mellitus with diabetic chronic kidney disease; N18.9 Chronic kidney disease, unspecified
CPT/HCPCS: 36415; 76700; 80053; 80061; 83036; 84550

== ENCOUNTER → 2018-12-30 | Day surgery (SDC) | payer MEDICARE, BC ==
[2018-12-28 11:03] VITALS: BMI 49.1
[~2018-12-30] MED LIST: LOSARTAN 25 MG TAB PO STA; MIDAZOLAM (PF) 2 MG/2 ML VIAL IVP ONE; SODIUM CHLORIDE 0.9% 500 ML 500 ML IV ONE; fentaNYL (PF) 50 MCG/ML 2 ML AMP IVP ONE; fentaNYL (PF) 50 MCG/ML 2 ML AMP ONE
[2018-12-30 06:50] VITALS: TEMP 98.2
[2018-12-30 06:52] LABS: Glucose,Whole Blood 79 mg/dL (75-99)
[2018-12-30] MEDS: BENZOCAINE SPRAY 1 CAN MUCOUS MEM ONE ×2 (07:33→07:40)
[2018-12-30] MEDS: MIDAZOLAM (PF) 2 MG/2 ML VIAL IVP ONE ×2 (07:43→07:45)
--- NOTE | 2018-12-30 08:10 | P.TEE ---
Indications for Procedure(s): To assess severity of mitral regurgitation Date of Procedure: 12/30/18 Preoperative Diagnosis: Moderate to severe mitral regurgitation, ischemic heart disease Postoperative Diagnosis: 3+ mitral regurgitation Description of Procedure(s): INDICATION: This is a 68-year-old gentleman with history of ischemic heart disease with a previous stent placement of the LAD in the setting of acute myocardial infarction and also proximal RCA. He had mild mitral regurgitation 2016. Recently patient has been complaining of increasing shortness of breath and transthoracic echo Cardigan showed evidence of 3-4+ mitral regurgitation. Patient is advised to have SYLVIA examination for further evaluation CONSENT:. Informed consent was obtained from patient and family PROCEDURE:. Patient was brought to the lab in a fasting state. He was prepped and draped in the usual fashion. The throat was sprayed with Cetacaine. Patient was given sedation with total milligrams of Versed and 50 g of fentanyl. A lubricated Omni probe was introduced in the oropharynx and was advanced into the esophagus and stomach. Color, pulsed and continuous Doppler studies were performed. Axillary contrast bubble injection was also performed. Multiple views were obtained from both and stomach and esophagus FINDINGS:. The mitral valve structurally appear to be normal. There appeared to be central, 3+ mitral regurgitation. The PISA value was calculated at this 0.7. There is no evidence of any ruptured chordae tendineae and mitral valve prolapse. The aortic valve appeared to be normal structurally and functioning normally. Tricuspid valve appeared to be normal. The interatrial septum is intact without any spontaneous shunt. Axillary contrast will injection did not reveal any crossing of bubbles across intra-atrial septum. The left atrial appendage is free of any clot. The left ventricle function appeared to be fairly preserved. Aorta seemed to show minimal plaque IMPRESSION: #1. 3+ central mitral regurgitation #2. No PFO #3. Known left atrial appendage clot. #4. Fairly normal LV function PLAN:. Maximum medical therapy. If patient continues to be symptomatic, consider cardiac catheterization to rule out any progression of ischemic heart disease. Mitral valve repair may be considered, If symptoms are not controlled and if no coronary artery disease documented.
[2018-12-30 08:18] VITALS: RESP 22
[2018-12-30 10:04] VITALS: BP 168/71; PULSE 78
== END ==
LOC: CATHCVL 06:20
PROVIDERS: ATTEND Internal Medicine Cardiovascular Disease
DX: I34.0 Nonrheumatic mitral (valve) insufficiency (principal); I25.10 Atherosclerotic heart disease of native coronary artery without angina pectoris; Z95.5 Presence of coronary angioplasty implant and graft; I10 Essential (primary) hypertension; E78.49 Other hyperlipidemia; F17.210 Nicotine dependence, cigarettes, uncomplicated; F17.290 Nicotine dependence, other tobacco product, uncomplicated; E11.9 Type 2 diabetes mellitus without complications; I49.3 Ventricular premature depolarization; I47.1 Supraventricular tachycardia; I25.2 Old myocardial infarction; Z79.02 Long term (current) use of antithrombotics/antiplatelets; Z79.82 Long term (current) use of aspirin; Z79.4 Long term (current) use of insulin; Z79.899 Other long term (current) drug therapy
CPT/HCPCS: 93312; 93320; 93325; J3010; J2250

== ENCOUNTER 2018-12-31 13:46 | Inpatient (IN) | payer MEDICARE, BC ==
[2018-12-31] MEDS ORDERED: IBUPROFEN 600 MG TAB PO STA (14:34)
[2018-12-31] MEDS ORDERED: ACETAMINOPHEN TAB 500 MG TAB PO STA (14:34)
--- NOTE | 2018-12-31 14:37 | ED ---
General Adult HPI - General Chief complaint: Altered Mental Status Stated complaint: Weakness Time Seen by Provider: 12/31/18 13:55 Source: patient, RN notes reviewed Mode of arrival: wheelchair Limitations: no limitations - History of Present Illness Initial comments: This is a 68-year-old male who presents emergency Department complaining of having a cough and fever since yesterday. Patient states she had a SYLVIA yesterday and ever since then he hasn't been feeling well. Patient's this morning started spiking high fever and became much weaker according to the . Patient denies any headache patient denies neck pain. Patient states he has had a cough. Patient denies any shortness of breath or chest pain. Patient denies abdominal pain patient denies nausea vomiting diarrhea. Patient denies any dysuria hematuria urinary frequency. Patient did take some Tylenol since but has not taken any Tylenol or Motrin today. - Related Data Home Medications Medication Instructions Recorded Confirmed Insulin Regular [HumuLIN R] See Protocol SQ ACHS PRN 04/05/16 12/31/18 Clopidogrel [Plavix] 75 mg PO DAILY 03/02/18 12/31/18 Famotidine [Pepcid] 20 mg PO DAILY 03/02/18 12/31/18 Insulin NPH Human Isophane See Protocol SQ ACHS PRN 03/02/18 12/31/18 [NovoLIN N] metFORMIN HCL [Glucophage] 1,000 mg PO DAILY 03/02/18 12/31/18 Furosemide [Lasix] 20 mg PO DAILY 12/28/18 12/31/18 Metoprolol Succinate (ER) [Toprol 50 mg PO DAILY 12/28/18 12/31/18 Xl] Pravastatin Sodium [Pravachol] 40 mg PO HS 12/28/18 12/31/18 amLODIPine [Norvasc] 10 mg PO HS 12/28/18 12/31/18 metFORMIN HCL [Glucophage] 500 mg PO HS 12/31/18 12/31/18 Previous Rx's Medication Instructions Recorded Aspirin 81 mg PO DAILY #30 chew 04/09/16 Losartan [Cozaar] 25 mg PO DAILY #30 tab 04/09/16 Nitroglycerin Sl Tabs [Nitrostat] 0.4 mg SUBLINGUAL Q5M PRN #25 tab 04/09/16 Allergies Allergy/AdvReac Type Severity Reaction Status Date / Time No Known Allergies Allergy Verified 12/31/18 14:03 Review of Systems ROS Statement: Those systems with pertinent positive or pertinent negative responses have been documented in the HPI. ROS Other: All systems not noted in ROS Statement are negative. Past Medical History Past Medical History: Coronary Artery Disease (CAD), Cancer, Chest Pain / Angina, Diabetes Mellitus, Eye Disorder, Hyperlipidemia, Hypertension, Myocardial Infarction ([place]) Additional Past Medical History / Comment(s): 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 Cancerous stomach tumor and Testicular cancer in [id number]. 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 Father Family Medical History: Cancer Additional Family Medical History / Comment(s): Father at age 84 from prostate cancer. Brother(s) Family Medical History: Cancer Additional Family Medical History / Comment(s): Patient has 4 brothers with no major medical problems. Sister(s) Family Medical History: Cancer Additional Family Medical History / Comment(s): Patient has 2 sisters with no major medical problems. Daughter(s) Additional Family Medical History / Comment(s): Patient has 2 brothers with no major medical problems. General Exam - General Exam Comments Initial Comments: GENERAL: Patient is well-developed and well-nourished. Patient is nontoxic and well- hydrated and is in mild distress. Warm to touch ENT: Neck is soft and supple. No significant lymphadenopathy is noted. Oropharynx is clear. Moist mucous membranes. Neck has full range of motion without eliciting any pain. EYES: The sclera were anicteric and conjunctiva were pink and moist. Extraocular movements were intact and pupils were equal round and reactive to light. Eyelids were unremarkable. PULMONARY: Unlabored respirations. Good breath sounds bilaterally. No audible rales rhonchi or wheezing was noted. CARDIOVASCULAR: There is a regular rate and rhythm without any murmurs gallops or rubs. ABDOMEN: Soft and nontender with normal bowel sounds. No palpable organomegaly was noted. There is no palpable pulsatile mass. SKIN: Skin is clear with no lesions or rashes and otherwise unremarkable. NEUROLOGIC: Patient is alert and oriented 3 cranial nerves II through XII are grossly intact motor and sensory are also intact MUSCULOSKELETAL: Normal extremities with adequate strength and full range of motion. No lower extremity swelling or edema. No calf tenderness. LYMPHATICS: No significant lymphadenopathy is noted PSYCHIATRIC: Normal psychiatric evaluation. Limitations: no limitations Course Vital Signs 12/31/18 12/31/18 12/31/18 13:54 15:00 15:30 Temperature 103.1 F H Pulse Rate 101 H 87 84 Respiratory 22 24 25 H Rate Blood Pressure 153/76 173/87 162/79 O2 Sat by Pulse 96 96 Oximetry Medical Decision Making - Medical Decision Making EKG shows sinus rhythm with occasional PAC at 96 bpm TN interval 182 QRS is under QT interval 336 QTC is 424 per patient's EKG shows no ST segment elevation or depression or T wave abnormalities are noted. Chest x-ray shows a left lower lobe pneumonia. - Lab Data Result diagrams: 12/31/18 14:16 12/31/18 14:16 Lab Results 12/31/18 12/31/18 12/31/18 Range/Units 14:16 14:16 14:16 WBC 14.0 H (3.8-10.6) k/uL RBC 5.20 (4.30-5.90) m/uL Hgb 14.7 (13.0-17.5) gm/dL Hct 44.1 (39.0-53.0) % MCV 84.9 (80.0-100.0) fL MCH 28.2 (25.0-35.0) pg MCHC 33.2 (31.0-37.0) g/dL RDW 14.7 (11.5-15.5) % Plt Count 184 (150-450) k/uL Neutrophils % 87 % Lymphocytes % 5 % Monocytes % 6 % Eosinophils % 1 % Basophils % 0 % Neutrophils # 12.3 H (1.3-7.7) k/uL Lymphocytes # 0.6 L (1.0-4.8) k/uL Monocytes # 0.9 (0-1.0) k/uL Eosinophils # 0.1 (0-0.7) k/uL Basophils # 0.0 (0-0.2) k/uL PT (9.0-12.0) sec INR (<1.2) APTT (22.0-30.0) sec Sodium 139 (137-145) mmol/L Potassium 4.9 (3.5-5.1) mmol/L Chloride 104 (98-107) mmol/L Carbon Dioxide 25 (22-30) mmol/L Anion Gap 10 mmol/L BUN 26 H (9-20) mg/dL Creatinine 1.66 H (0.66-1.25) mg/dL Est GFR (CKD-EPI)AfAm 49 (>60 ml/min/1.73 sqM) Est GFR (CKD-EPI)NonAf 42 (>60 ml/min/1.73 sqM) Glucose 213 H (74-99) mg/dL Plasma Lactic Acid Eder 1.7 (0.7-2.0) mmol/L Calcium 10.0 (8.4-10.2) mg/dL Total Bilirubin 1.2 (0.2-1.3) mg/dL AST 23 (17-59) U/L ALT 31 (21-72) U/L Alkaline Phosphatase 77 (38-126) U/L Total Protein 7.5 (6.3-8.2) g/dL Albumin 4.6 (3.5-5.0) g/dL Influenza Type A RNA (Not Detectd) Influenza Type B (PCR) (Not Detectd) 12/31/18 12/31/18 Range/Units 14:16 15:08 WBC (3.8-10.6) k/uL RBC (4.30-5.90) m/uL Hgb (13.0-17.5) gm/dL Hct (39.0-53.0) % MCV (80.0-100.0) fL MCH (25.0-35.0) pg MCHC (31.0-37.0) g/dL RDW (11.5-15.5) % Plt Count (150-450) k/uL Neutrophils % % Lymphocytes % % Monocytes % % Eosinophils % % Basophils % % Neutrophils # (1.3-7.7) k/uL Lymphocytes # (1.0-4.8) k/uL Monocytes # (0-1.0) k/uL Eosinophils # (0-0.7) k/uL Basophils # (0-0.2) k/uL PT 10.7 (9.0-12.0) sec INR 1.0 (<1.2) APTT 29.2 (22.0-30.0) sec Sodium (137-145) mmol/L Potassium (3.5-5.1) mmol/L Chloride (98-107) mmol/L Carbon Dioxide (22-30) mmol/L Anion Gap mmol/L BUN (9-20) mg/dL Creatinine (0.66-1.25) mg/dL Est GFR (CKD-EPI)AfAm (>60 ml/min/1.73 sqM) Est GFR (CKD-EPI)NonAf (>60 ml/min/1.73 sqM) Glucose (74-99) mg/dL Plasma Lactic Acid Deer (0.7-2.0) mmol/L Calcium (8.4-10.2) mg/dL Total Bilirubin (0.2-1.3) mg/dL AST (17-59) U/L ALT (21-72) U/L Alkaline Phosphatase (38-126) U/L Total Protein (6.3-8.2) g/dL Albumin (3.5-5.0) g/dL Influenza Type A RNA Not Detected (Not Detectd) Influenza Type B (PCR) Not Detected (Not Detectd) Disposition Clinical Impression: Pneumonia Disposition: ADMITTED IP TO THIS [facility] Referrals: Cassius Richardson MD [Primary Care Provider] - 1-2 days Time of Disposition: 16:10
[2018-12-31 14:54] LABS: Basophils % (A) 0 %; Eosinophils # (A) 0.1 k/uL (0-0.7); Eosinophils % (A) 1 %; HCT 44.1 % (39.0-53.0); HGB 14.7 gm/dL (13.0-17.5); Lymphocytes # (A) 0.6 k/uL (1.0-4.8); Lymphocytes % (A) 5 %; MCH 28.2 pg (25.0-35.0); MCHC 33.2 g/dL (31.0-37.0); MCV 84.9 fL (80.0-100.0); Mean Platelet Volume 6.8; Monocytes # (A) 0.9 k/uL (0-1.0); Monocytes % (A) 6 %; Neutrophils # (A) 12.3 k/uL (1.3-7.7); Neutrophils % (A) 87 %; Platelet Count 184 k/uL (150-450); RDW 14.7 % (11.5-15.5)
[2018-12-31 15:02] LABS: Partial Thromboplastin Time 29.2 sec (22.0-30.0); Prothrombin Time 10.7 sec (9.0-12.0)
[2018-12-31 15:04] LABS: Albumin 4.6 g/dL (3.5-5.0); Potassium 4.9 mmol/L (3.5-5.1); Total Bilirubin 1.2 mg/dL (0.2-1.3); Total Protein 7.5 g/dL (6.3-8.2)
[2018-12-31] MEDS: SODIUM CHLORIDE 0.9% 500 ML 500 ML IV SCH ×3 (15:05→16:32)
--- NOTE | 2018-12-31 15:35 | XR ---
EXAMINATION TYPE: XR chest 2V DATE OF EXAM: 12/31/2018 COMPARISON: 04/05/2016 HISTORY: 68-year-old male with fever and weakness TECHNIQUE: AP and lateral views FINDINGS: Low lung volumes and crowded vascular markings. Heart upper limits of normal in size. Prominent inter stitial densities are present. Some patchy and bandlike densities throughout the left lung. No pleura l effusion. Multiple surgical clips seen posteriorly in the mid abdomen on the lateral view. IMPRESSION: Hypoventilatory changes. Interstitial densities are increased and there are some bandlike and focal p atchy densities in the left lung. Underlying pneumonia including atypical pneumonias not excluded.
[2018-12-31] MEDS ORDERED: PIPERACILLIN-TAZOBACTAM 3.375 GM in SODIUM CHLORIDE 0.9% 100 ML IVPB STA (15:38)
[2018-12-31] MEDS ORDERED: PNEUMONIA PROTOCOL UTILIZED 1 EACH MISC PO PRN (16:10)
[2018-12-31] MEDS ORDERED: LEVOFLOXACIN 750MG-D5W PMX 750 MG in DEXTROSE/WATER 1 150ML.BAG IVPB STA (16:10)
[2018-12-31] MEDS: PIPERACILLIN-TAZOBACTAM 3.375 GM in SODIUM CHLORIDE 0.9% 100 ML IVPB SCH (16:16)
[2018-12-31] MEDS ORDERED: NITROGLYCERIN SL TABS 0.4 MG TAB SUBLINGUAL PRN (20:23)
[2018-12-31] MEDS: PRAVASTATIN SODIUM 40 MG TAB PO SCH (22:13)
[2018-12-31] MEDS: amLODIPine 10 MG TAB PO SCH (22:13)
[2018-12-31] MEDS: metFORMIN 500 MG TAB PO SCH (22:13)
[2019-01-01] MEDS: PIPERACILLIN-TAZOBACTAM 3.375 GM in SODIUM CHLORIDE 0.9% 100 ML IVPB SCH ×4 (00:19→23:49)
[2019-01-01 01:36] LABS: Appearance,Urine Clear (Clear); Bilirubin,Urine Negative (Negative); Blood,Urine Small (Negative); Color,Urine Yellow; Glucose,Urine (UA) 4+ (Negative); Ketones,Urine Negative (Negative); Leukocyte Esterase,Urine Negative (Negative); Mucus,Urine Rare /hpf; Nitrite,Urine Negative (Negative); PH, Urine 5.5 (5.0-8.0); Protein,Urine 1+ (Negative); RBC,Urine 1 /hpf (0-5); Specific Gravity,Urine 1.017 (1.001-1.035); Squamous Epithelial Cell,Urine <1 /hpf (0-4); Urobilinogen,Urine <2.0 mg/dL (<2.0); WBC,Urine 1 /hpf (0-5)
--- NOTE | 2019-01-01 06:56 | XR ---
EXAMINATION TYPE: XR chest 2V DATE OF EXAM: 01/01/2019 HISTORY: pneumonia. REFERENCE: Previous study dated 12/31/2018. FINDINGS: The heart is mildly enlarged. There is bibasilar atelectasis. Pleural spaces are clear. IMPRESSION: 1. MILD CARDIOMEGALY. 2. BIBASILAR ATELECTASIS.
--- NOTE | 2019-01-01 08:47 | P.HPIM ---
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 Cancerous stomach tumor and Testicular cancer in [id number]. Last Myocardial Infarction Date:: 04/05/16 History of Any Multi-Drug Resistant Organisms: None Reported Past Surgical History: Heart Catheterization With Stent Additional Past Surgical History / Comment(s): Cancerous tumor removed in stomach and had chemo, bilateral cataract removal, sx for testicular cancer "dissected nodes." Past Anesthesia/Blood Transfusion Reactions: No Reported Reaction Date of Last Stent Placement:: 04/05/16 Past Psychological History: No Psychological Hx Reported Smoking Status: Former smoker Past Alcohol Use History: None Reported Additional Past Alcohol Use History / Comment(s): Smoked pipes at age 31, then switched to cigars, 4-5 per day. Quit in 2009. Past Drug Use History: None Reported Additional Drug Use History / Comment(s): pt started smoking a pipe at ag 31 then swithced to cigars. was smoking 4-5 cigars a day -quit 2009 denies any medical marijuana, marijuana, street drug or alcohol use. He lives at home with his . 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 - Past Family History Mother Family Medical History: No Reported History Additional Family Medical History / Comment(s): Mother is alive at age 88 with no major medical problems. Father Family Medical History: Cancer Additional Family Medical History / Comment(s): Father at age 84 from prostate cancer. Brother(s) Family Medical History: Cancer Additional Family Medical History / Comment(s): Patient has 4 brothers with no major medical problems. Sister(s) Family Medical History: Cancer Additional Family Medical History / Comment(s): Patient has 2 sisters with no major medical problems. Daughter(s) Additional Family Medical History / Comment(s): Patient has 2 brothers with no major medical problems. Medications and Allergies Home Medications Medication Instructions Recorded Confirmed Type Insulin Regular [HumuLIN R] See Protocol SQ ACHS PRN 04/05/16 12/31/18 History Aspirin 81 mg PO DAILY #30 chew 04/09/16 12/31/18 Rx Losartan [Cozaar] 25 mg PO DAILY #30 tab 04/09/16 12/31/18 Rx Nitroglycerin Sl Tabs [Nitrostat] 0.4 mg SUBLINGUAL Q5M PRN #25 tab 04/09/16 12/31/18 Rx Clopidogrel [Plavix] 75 mg PO DAILY 03/02/18 12/31/18 History Famotidine [Pepcid] 20 mg PO DAILY 03/02/18 12/31/18 History Insulin NPH Human Isophane See Protocol SQ ACHS PRN 03/02/18 12/31/18 History [NovoLIN N] metFORMIN HCL [Glucophage] 1,000 mg PO DAILY 03/02/18 12/31/18 History Furosemide [Lasix] 20 mg PO DAILY 12/28/18 12/31/18 History Metoprolol Succinate (ER) [Toprol 50 mg PO DAILY 12/28/18 12/31/18 History Xl] Pravastatin Sodium [Pravachol] 40 mg PO HS 12/28/18 12/31/18 History amLODIPine [Norvasc] 10 mg PO HS 12/28/18 12/31/18 History metFORMIN HCL [Glucophage] 500 mg PO HS 12/31/18 12/31/18 History Allergies Allergy/AdvReac Type Severity Reaction Status Date / Time No Known Allergies Allergy Verified 12/31/18 14:03 Physical Exam Vitals: Vital Signs Temp Pulse Pulse Resp BP BP Pulse Ox 01/01/19 01:18 100.3 F H 86 20 157/68 95 12/31/18 20:20 98.3 F 61 18 131/70 97 12/31/18 20:05 61 18 12/31/18 16:30 70 25 H 142/62 94 L 12/31/18 16:29 98.6 F 12/31/18 15:30 84 25 H 162/79 96 12/31/18 15:00 87 24 173/87 12/31/18 13:54 103.1 F H 101 H 22 153/76 96 Intake and Output 12/31/18 01/01/19 01/01/19 22:59 06:59 14:59 Intake Total 200 Output Total 1 Balance -1 200 Intake: Intake, IV Titration 200 Amount Levofloxacin 750Mg-D5w 100 Pmx 750 mg In Dextrose/ Water 1 150ml.bag @ 100 mls/hr IVPB ONCE STA Rx#: [id number] Piperacillin-Tazobactam 3 100 .375 gm In Sodium Chloride 0.9% 100 ml @ 25 mls/hr IVPB Q8HR [facility] Rx# :[id number] Output: Stool 1 Other: Voiding Method Toilet Urinal # Voids 1 # Bowel Movements 1 Results CBC & Chem 7: 12/31/18 14:16 12/31/18 14:16 Labs: Abnormal Lab Results - Last 24 Hours (Table) 12/31/18 12/31/18 01/01/19 Range/Units 14:16 14:16 01:21 WBC 14.0 H (3.8-10.6) k/uL Neutrophils # 12.3 H (1.3-7.7) k/uL Lymphocytes # 0.6 L (1.0-4.8) k/uL BUN 26 H (9-20) mg/dL Creatinine 1.66 H (0.66-1.25) mg/dL Glucose 213 H (74-99) mg/dL Urine Protein 1+ H (Negative) Urine Glucose (UA) 4+ H (Negative) Urine Blood Small H (Negative) Urine Mucus Rare H (None) /hpf Thrombosis Risk Factor Assmnt - Choose All That Apply Any of the Below Risk Factors Present?: Yes Each Factor Represents 1 point: Acute PR, Obesity (BMI >25), Swollen legs (current) Other Risk Factors: Yes Each Risk Factor Represents 2 Points: Age 61-74 years Other congenital or acquired thrombophilia - If yes, enter type in comment: No Thrombosis Risk Factor Assessment Total Risk Factor Score: 5 Thrombosis Risk Factor Assessment Level: High Risk Assessment and Plan Plan: 1. Sepsis secondary to pneumonia possibly aspiration. Obtain blood, urine, sputum cultures. Urinalysis negative awaiting culture results. CT of the chest without contrast ordered area Vancomycin pharmacy to dose, continue Zosyn 3.375 g, barium swallow with video 2. Shortness of breath secondary to mitral regurg continue Lasix 20 mg by mouth, previous SYLVIA impression: 3+ central mitral regurg, no PFO 3. Fever. As noted above 4. Diabetes mellitus. Obtain hemoglobin A1c initiate insulin sliding scale, continue metformin 500 mg by mouth at night and 1000 mg daily 5. Hypertension. Continue metoprolol 50 mg daily, amlodipine 10 mg at night, losartan and when he 5 mg daily 6. Hyperlipidemia. 7.Coronary artery disease. Continue Plavix 75 mg daily, aspirin 81 mg daily 8. DVT prophylaxis. Heparin 5000 units subcu every 12 hours 9. GI prophylaxis. Pepcid 20 mg daily CODE STATUS: Full code Discharge plan: Minimum 2 nights stay Impression and plan of care have been directed as dictated by the signing physician. Apolonia Cerda nurse practitioner acting as scribe for signing physician.
[2019-01-01] MEDS ORDERED: LEVOFLOXACIN 750 MG TAB PO SCH (09:00)
[2019-01-01] MEDS: ASPIRIN 81 MG PO SCH (09:16)
[2019-01-01] MEDS: FUROSEMIDE 20 MG TAB PO SCH (09:16)
[2019-01-01] MEDS: LOSARTAN 25 MG TAB PO SCH (09:17)
[2019-01-01] MEDS: CLOPIDOGREL 75 MG TAB PO SCH (09:17)
[2019-01-01] MEDS: metFORMIN 500 MG TAB PO SCH ×2 (09:17→21:17)
[2019-01-01] MEDS: FAMOTIDINE 20 MG TAB PO SCH (09:17)
[2019-01-01] MEDS: METOPROLOL SUCCINATE (ER) 50 MG TAB.ER.24H PO SCH (09:17)
[2019-01-01] MEDS ORDERED: VANCOMYCIN IV PER PHARMACY 1 EACH MISC MISCELLANE PRN (10:31)
--- NOTE | 2019-01-01 11:09 | CT ---
EXAMINATION TYPE: CT chest wo con DATE OF EXAM: 01/01/2019 COMPARISON: None. HISTORY: shortness of breath CT DLP: 621.6 mGycm. Automated Exposure Control for Dose Reduction was Utilized. TECHNIQUE: CT scan of the thorax is performed without IV contrast. FINDINGS: There is patchy groundglass opacity throughout both lungs. There is atelectatic change pres ent at the lung bases. There is some shotty mediastinal adenopathy. There is no significant axillary adenopathy. The heart i s not enlarged. There is pericardial thickening up to 1 cm posteriorly. This may represent fluid. There is a small sliding hiatal hernia The streak artifact in the paraspinal region of the lumbar spine which may due to a previous lymph no de resection. There is hypertrophic spondylosis within the spine.. IMPRESSION: 1. PATCHY, GROUNDGLASS OPACITY WITHIN THE LUNGS MAY REFLECT ALVEOLITIS OR ATYPICAL PNEUMONIA. CONGEST TAMERA HEART FAILURE COULD GIVE A SIMILAR APPEARANCE. 2. NONSPECIFIC MEDIASTINAL ADENOPATHY. 3. PERICARDIAL THICKENING ESPECIALLY POSTERIORLY MAY REPRESENT A SMALL PERICARDIAL EFFUSION. FINDING HIATAL HERNIA. 5. POSTSURGICAL CHANGE.
[2019-01-01] MEDS ORDERED: VANCOMYCIN 2,250 MG in SODIUM CHLORIDE 0.9% 500 ML 500 ML IVPB ONE (12:00)
[2019-01-01] MEDS: INSULIN ASPART (NovoLOG) 100 UNIT/ML VIAL SQ SCH ×3 (12:22→21:18)
[2019-01-01 12:23] LABS: Glucose,Whole Blood 284 mg/dL (75-99)
[2019-01-01 16:57] LABS: Glucose,Whole Blood 217 mg/dL (75-99)
[2019-01-01 21:12] LABS: Glucose,Whole Blood 277 mg/dL (75-99)
[2019-01-01] MEDS: HEPARIN SODIUM,PORCINE 5,000 UNIT/ML 1 ML VIAL SQ SCH (21:18)
[2019-01-01] MEDS: PRAVASTATIN SODIUM 40 MG TAB PO SCH (21:18)
[2019-01-01] MEDS: amLODIPine 10 MG TAB PO SCH (21:18)
[2019-01-02] MEDS: VANCOMYCIN 2,250 MG in SODIUM CHLORIDE 0.9% 500 ML 500 ML IVPB SCH (05:16)
[2019-01-02 06:59] LABS: Glucose,Whole Blood 242 mg/dL (75-99)
[2019-01-02] MEDS: INSULIN ASPART (NovoLOG) 100 UNIT/ML VIAL SQ SCH ×4 (07:36→21:24)
[2019-01-02] MEDS: HEPARIN SODIUM,PORCINE 5,000 UNIT/ML 1 ML VIAL SQ SCH ×2 (07:47→21:24)
[2019-01-02] MEDS: FUROSEMIDE 20 MG TAB PO SCH (07:47)
[2019-01-02] MEDS: metFORMIN 500 MG TAB PO SCH ×2 (07:47→21:24)
[2019-01-02] MEDS: CLOPIDOGREL 75 MG TAB PO SCH (07:48)
[2019-01-02] MEDS: ASPIRIN 81 MG PO SCH (07:48)
[2019-01-02] MEDS: FAMOTIDINE 20 MG TAB PO SCH (07:48)
[2019-01-02] MEDS: LOSARTAN 25 MG TAB PO SCH (07:48)
[2019-01-02] MEDS: METOPROLOL SUCCINATE (ER) 50 MG TAB.ER.24H PO SCH (07:48)
[2019-01-02] MEDS: PIPERACILLIN-TAZOBACTAM 3.375 GM in SODIUM CHLORIDE 0.9% 100 ML IVPB SCH ×3 (09:04→23:40)
[2019-01-02 10:54] LABS: Hemoglobin A1C 7.7 % (4.0-6.0)
[2019-01-02 11:45] LABS: Basophils % (A) 0 %; Eosinophils # (A) 0.1 k/uL (0-0.7); Eosinophils % (A) 1 %; HGB 12.8 gm/dL (13.0-17.5); Lymphocytes % (A) 15 %; MCH 28.9 pg (25.0-35.0); MCHC 33.8 g/dL (31.0-37.0); MCV 85.6 fL (80.0-100.0); Mean Platelet Volume 7.9; Monocytes # (A) 0.8 k/uL (0-1.0); Monocytes % (A) 12 %; Neutrophils # (A) 4.4 k/uL (1.3-7.7); Neutrophils % (A) 68 %; Platelet Count 147 k/uL (150-450); RBC 4.44 m/uL (4.30-5.90); RDW 14.8 % (11.5-15.5); WBC 6.5 k/uL (3.8-10.6)
--- NOTE | 2019-01-02 11:46 | FL ---
MODIFIED SWALLOW / DEGLUTITION STUDY DATE OF EXAM: 01/02/2019 CLINICAL HISTORY: 68-year-old male presents for pneumonia, assess for potential aspiration. TECHNIQUE: Deglutition study is performed utilizing thin liquid barium, honey and nectar thick liqui d barium, barium thick applesauce, and barium coated cracker. Total fluoroscopy time: 1 minute 35 seconds. Total images: None. Real-time fluoroscopy support was provided to speech pathology. COMPARISON: None. FINDINGS: The oral and pharyngeal phases show satisfactory initiation and propagation with all modalities teste d. Normal mastication is seen with solid modalities tested. There is no evidence of penetration or aspiration with any modality tested. Mild vallecular and piriform sinus residual is noted, felt to be within the range of normal. IMPRESSION: Normal deglutition study. Please refer to speech therapist notes for further details if necessary.
[2019-01-02 12:07] LABS: Glucose,Whole Blood 248 mg/dL (75-99)
--- NOTE | 2019-01-02 14:34 | P.CNPUL ---
History of Present Illness Consult date: 01/02/19 Reason for consult: dyspnea, cough, chest pain, pneumonia, obstructive sleep apnea Chief complaint: Shortness of breath and cough with fever for one day History of present illness: 68-year-old male who has a history of valvular heart disease and coronary artery disease he is status post stent 3 day prior to coming hospital had a SYLVIA postprocedure developed fever chills not feeling well brought into the hospital for evaluation, chest x-ray suggestive of bilateral atelectasis with a possibility of pneumonia heart failure the computed tomography scan of the chest showed cellulitis Petrin despite temperature up to 103 in the emergency department white cell count however remains normal blood cultures preliminary report are negative, he is on broad-spectrum antibiotics with Zosyn fever is normalized Review of Systems All systems: negative Past Medical History Past Medical History: Coronary Artery Disease (CAD), Cancer, Chest Pain / Angina, Diabetes Mellitus, Eye Disorder, Hyperlipidemia, Hypertension, Myocardial Infarction (CT) Additional Past Medical History / Comment(s): 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 Cancerous stomach tumor and Testicular cancer in [id number]. Last Myocardial Infarction Date:: 04/05/16 History of Any Multi-Drug Resistant Organisms: None Reported Past Surgical History: Heart Catheterization With Stent Additional Past Surgical History / Comment(s): Cancerous tumor removed in stomach and had chemo, bilateral cataract removal, sx for testicular cancer "dissected nodes." Past Anesthesia/Blood Transfusion Reactions: No Reported Reaction Date of Last Stent Placement:: 04/05/16 Past Psychological History: No Psychological Hx Reported Smoking Status: Former smoker Past Alcohol Use History: None Reported Additional Past Alcohol Use History / Comment(s): Smoked pipes at age 31, then switched to cigars, 4-5 per day. Quit in 2009. Past Drug Use History: None Reported Additional Drug Use History / Comment(s): pt started smoking a pipe at ag 31 then swithced to cigars. was smoking 4-5 cigars a day -quit 2009 denies any medical marijuana, marijuana, street drug or alcohol use. He lives at home with his . 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 - Past Family History Mother Family Medical History: No Reported History Additional Family Medical History / Comment(s): Mother is alive at age 88 with no major medical problems. Father Family Medical History: Cancer Additional Family Medical History / Comment(s): Father at age 84 from prostate cancer. Brother(s) Family Medical History: Cancer Additional Family Medical History / Comment(s): Patient has 4 brothers with no major medical problems. Sister(s) Family Medical History: Cancer Additional Family Medical History / Comment(s): Patient has 2 sisters with no major medical problems. Daughter(s) Additional Family Medical History / Comment(s): Patient has 2 brothers with no major medical problems. Medications and Allergies Home Medications Medication Instructions Recorded Confirmed Type Insulin Regular [HumuLIN R] See Protocol SQ ACHS PRN 04/05/16 12/31/18 History Aspirin 81 mg PO DAILY #30 chew 04/09/16 12/31/18 Rx Losartan [Cozaar] 25 mg PO DAILY #30 tab 04/09/16 12/31/18 Rx Nitroglycerin Sl Tabs [Nitrostat] 0.4 mg SUBLINGUAL Q5M PRN #25 tab 04/09/16 0 12/31/18 Rx Clopidogrel [Plavix] 75 mg PO DAILY 03/02/18 12/31/18 History Famotidine [Pepcid] 20 mg PO DAILY 03/02/18 12/31/18 History Insulin NPH Human Isophane See Protocol SQ ACHS PRN 03/02/18 12/31/18 History [NovoLIN N] metFORMIN HCL [Glucophage] 1,000 mg PO DAILY 03/02/18 12/31/18 History Furosemide [Lasix] 20 mg PO DAILY 12/28/18 12/31/18 History Metoprolol Succinate (ER) [Toprol 50 mg PO DAILY 12/28/18 12/31/18 History Xl] Pravastatin Sodium [Pravachol] 40 mg PO HS 12/28/18 12/31/18 History amLODIPine [Norvasc] 10 mg PO HS 12/28/18 12/31/18 History metFORMIN HCL [Glucophage] 500 mg PO HS 12/31/18 12/31/18 History Allergies Allergy/AdvReac Type Severity Reaction Status Date / Time No Known Allergies Allergy Verified 12/31/18 14:03 Physical Exam Vitals: Vital Signs Temp Pulse Resp BP Pulse Ox 01/02/19 08:16 65 16 01/02/19 07:00 97.8 F 65 16 162/81 96 01/02/19 05:08 17 01/02/19 01:47 98.8 F 69 17 116/51 97 01/02/19 00:10 14 01/01/19 20:08 99.5 F 65 18 145/66 95 01/01/19 20:00 18 01/01/19 17:07 95 01/01/19 14:50 98.4 F 69 12 133/77 97 Intake and Output 01/01/19 01/02/19 01/02/19 22:59 06:59 14:59 Output Total 2 Balance -2 Output: Stool 2 Other: Voiding Method Toilet Toilet Urinal Urinal # Voids 1 1 1 - Constitutional General appearance: disheveled, morbidly obese, no acute distress - EENT Eyes: EOMI, PERRLA, normal appearance ENT: normal oropharynx Ears: bilateral: normal - Neck Neck: normal ROM - Respiratory Respiratory: bilateral: rales, rhonchi, negative: CTA, diminished, dullness, wheezing, prolonged expiration, prolonged inspiration - Cardiovascular Rhythm: regular Heart sounds: normal: S1, S2 - Gastrointestinal General gastrointestinal: decreased bowel sounds, distended, soft - Neurologic Neurologic: CNII-XII intact - Musculoskeletal Musculoskeletal: gait normal, generalized weakness, strength equal bilaterally - Psychiatric Psychiatric: A&O x's 3, appropriate affect, intact judgment & insight Results - Laboratory Findings CBC and BMP: 01/02/19 07:18 01/02/19 07:18 PT/INR, D-dimer PT 10.7 sec (9.0-12.0) 12/31/18 14:16 INR 1.0 (<1.2) 12/31/18 14:16 Abnormal lab findings: Abnormal Labs 12/31/18 12/31/18 12/31/18 14:16 14:16 14:16 WBC 14.0 H Hgb Hct Plt Count Neutrophils # 12.3 H Lymphocytes # 0.6 L BUN 26 H Creatinine 1.66 H Glucose 213 H POC Glucose (mg/dL) Hemoglobin A1c Procalcitonin 0.58 H Urine Protein Urine Glucose (UA) Urine Blood Urine Mucus 12/31/18 01/01/19 01/01/19 14:16 01:21 12:00 WBC Hgb Hct Plt Count Neutrophils # Lymphocytes # BUN Creatinine Glucose POC Glucose (mg/dL) 284 H Hemoglobin A1c 7.7 H Procalcitonin Urine Protein 1+ H Urine Glucose (UA) 4+ H Urine Blood Small H Urine Mucus Rare H 01/01/19 01/01/19 01/02/19 16:35 21:00 06:41 WBC Hgb Hct Plt Count Neutrophils # Lymphocytes # BUN Creatinine Glucose POC Glucose (mg/dL) 217 H 277 H 242 H Hemoglobin A1c Procalcitonin Urine Protein Urine Glucose (UA) Urine Blood Urine Mucus 01/02/19 01/02/19 01/02/19 07:18 07:18 11:41 WBC Hgb 12.8 L Hct 38.0 L Plt Count 147 L Neutrophils # Lymphocytes # BUN Creatinine 1.54 H Glucose POC Glucose (mg/dL) 248 H Hemoglobin A1c Procalcitonin Urine Protein Urine Glucose (UA) Urine Blood Urine Mucus - Diagnostic Findings Chest x-ray: report reviewed, image reviewed CT scan - chest: report reviewed, image reviewed (Finding as noted above) Assessment and Plan Assessment: Bilateral alveolitis/pneumonia with a differential diagnoses of heart failure Valvular heart disease with severe mitral regurgitation Coronary artery disease with history of stent placement Possible obstructive sleep apnea Hypertension 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
[2019-01-02 17:06] LABS: Glucose,Whole Blood 214 mg/dL (75-99)
[2019-01-02 20:58] LABS: Glucose,Whole Blood 334 mg/dL (75-99)
[2019-01-02] MEDS: PRAVASTATIN SODIUM 40 MG TAB PO SCH (21:24)
[2019-01-02] MEDS: amLODIPine 10 MG TAB PO SCH (21:24)
[2019-01-03] MEDS: VANCOMYCIN 2,250 MG in SODIUM CHLORIDE 0.9% 500 ML 500 ML IVPB SCH (05:07)
[2019-01-03 06:47] LABS: Glucose,Whole Blood 274 mg/dL (75-99)
[2019-01-03] MEDS: ASPIRIN 81 MG PO SCH (07:31)
[2019-01-03] MEDS: LOSARTAN 25 MG TAB PO SCH (07:31)
[2019-01-03] MEDS: metFORMIN 500 MG TAB PO SCH (07:31)
[2019-01-03] MEDS: CLOPIDOGREL 75 MG TAB PO SCH (07:31)
[2019-01-03] MEDS: FUROSEMIDE 20 MG TAB PO SCH (07:32)
[2019-01-03] MEDS: HEPARIN SODIUM,PORCINE 5,000 UNIT/ML 1 ML VIAL SQ SCH (07:32)
[2019-01-03] MEDS: FAMOTIDINE 20 MG TAB PO SCH (07:32)
[2019-01-03] MEDS: INSULIN ASPART (NovoLOG) 100 UNIT/ML VIAL SQ SCH ×2 (07:38→13:42)
[2019-01-03 08:16] LABS: Basophils % (A) 1 %; Eosinophils # (A) 0.2 k/uL (0-0.7); Eosinophils % (A) 3 %; HCT 41.6 % (39.0-53.0); HGB 13.5 gm/dL (13.0-17.5); Lymphocytes # (A) 1.3 k/uL (1.0-4.8); Lymphocytes % (A) 20 %; MCH 27.7 pg (25.0-35.0); MCHC 32.4 g/dL (31.0-37.0); MCV 85.4 fL (80.0-100.0); Mean Platelet Volume 7.4; Monocytes # (A) 0.4 k/uL (0-1.0); Monocytes % (A) 6 %; Neutrophils # (A) 4.1 k/uL (1.3-7.7); Neutrophils % (A) 67 %; Platelet Count 179 k/uL (150-450); RBC 4.87 m/uL (4.30-5.90); RDW 14.8 % (11.5-15.5); WBC 6.1 k/uL (3.8-10.6)
[2019-01-03 08:18] LABS: Albumin 3.8 g/dL (3.5-5.0); Calcium 9.5 mg/dL (8.4-10.2); Potassium 4.9 mmol/L (3.5-5.1); Total Bilirubin 0.6 mg/dL (0.2-1.3); Total Protein 6.5 g/dL (6.3-8.2)
[2019-01-03] MEDS: PIPERACILLIN-TAZOBACTAM 3.375 GM in SODIUM CHLORIDE 0.9% 100 ML IVPB SCH (09:50)
[2019-01-03] MEDS: METOPROLOL SUCCINATE (ER) 50 MG TAB.ER.24H PO SCH (09:55)
--- NOTE | 2019-01-03 10:13 | P.CRDCN ---
History of Present Illness History of present illness: This is a pleasant 68-year-old male past medical history significant for coronary artery disease status post stent placement to the LAD and proximal RCA, diabetes mellitus, dyslipidemia, hypertension, former nicotine dependence with a pipe and cigars and mitral regurgitation. He recently underwent a SYLVIA secondary to increasing shortness of breath which revealed 3+ central mitral regurgitation, no PFO, no left atrial appendage clot with a fairly normal LV. These findings are not thought to be the culprit for his increased shortness of breath and will have a heart cath sometime soon in the future. After the procedure on Wednesday he went home feeling somewhat overly fatigued with episodes of chills. He continued to have chills at home and was febrile. His is giving him Tylenol for the fever and just watch him closely at home. However he started to become disoriented and was unable to ambulate around the house without assistance so she brought him to the hospital for further evaluation. He has been started on broad-spectrum antibiotics. He is seen and examined up walking around his room in no acute distress. He denies any symptoms of shortness of breath, chest pain, cough and his mental status has improved. EKG reveals sinus mechanism with occasional PVC's and mild ST depression in lateral leads. Chest xray reveals interstitial densities increased with some bandlike focal patchy opacities in the left lung. Atypical pneumonia suspected. CT chest reveals groundglass opacites reflective of atypical pneumonia. Video swallow shows no evidence of aspiration. Laboratory data reviewed, WBC 14, hgb 12.8, plt 147, sodium 139, potassium 4.9, creatinine 1.66 on admission repeat 1.54, proNT-BNP 418. Current cardiac medications include aspirin 81 mg daily, plavix 75 mg daily, lasix 20 mg daily, losartan 25 mg daily, toprol 50 mg daily, pravastatin 40 mg daily, amlodipine 10 mg daily. Most recent cardiac catheterization 03/2016 in the setting of an acute anterior STEMI revealed critical disease involving mid LAD with plaque rupture and thrombus formation, severe disease of proximal RCA and severe disease of the ostial circumflec. He underwent successful stent placement to the mid LAD and aspiration thrombectomy from mid LAD. At the time of my exam: CONSTITUTIONAL: Denies fever. Denies chills. EYES: Denies blurred vision. Denies vision changes. Denies eye pain. EARS, NOSE, MOUTH & THROAT: Denies headache. Denies sore throat. Denies ear p ain. CARDIOVASCULAR: Denies chest pain. Denies shortness of breath. Denies orthopnea. Denies PND. Denies palpitations. RESPIRATORY: Denies cough. GASTROINTESTINAL: Denies abdominal pain. Denies diarrhea. Denies constipation. Denies nausea. Denies vomiting. MUSCULOSKELETAL: Denies myalgias. INTEGUMENTARY: Denies pruitis. Denies rash. NEUROLOGIC: Denies numbness. Denies tingling. Denies weakness. PSYCHIATRIC: Denies anxiety. Denies depression. ENDOCRINE: Denies fatigue. Denies weight change. Denies polydipsia. Denies polyurina. GENITOURINARY: Denies burning, hematuria or urgency with micturation. HEMATOLOGIC: Denies history of anemia. Denies bleeding. Blood pressure 129/69 heart rate 59 afebrile maintaining oxygen saturation on room air GENERAL: This is a 68-year-old male in no apparent distress at the time of my examination. HEENT: Head is atraumatic, normocephalic. Pupils are equal, round. Sclerae anicteric. Conjunctivae are clear. Mucous membranes of the mouth are moist. Neck is supple. There is no jugular venous distention. No carotid bruit is heard. LUNGS: Clear to auscultation no wheezes, rales or rhonchi. No chest wall tenderness is noted on palpation or with deep breathing. HEART: Regular rate and rhythm with systolic ejection murmur at the apex, no rubs or gallops. S1 and S2 heard. ABDOMEN: Soft, nontender. Bowel sounds are heard. No organomegaly noted. EXTREMITIES: No evidence of peripheral edema and no calf tenderness noted. VASCULAR: Radial and dorsalis pedis pulses palpated, no evidence of clubbing. NEUROLOGIC: Patient is awake, alert and oriented x3. ASSESSMENT Bilateral cellulitis/pneumonia Coronary artery disease status post stent placement in the setting of an acute ST elevated myocardial infarction Mitral regurgitation Hypertension Dyslipidemia Obesity, BMI 34 PLAN Clinically the patient is euvolemic with no evidence of heart failure. Ongoing medical management of acute pneumonia. Follow up with Dr. Connors as already established in the end of December. Thank you kindly for this consultation. Nurse Practitioner note has been reviewed, I agree with a documented findings and plan of care. Patient was seen and examined. 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 Cancerous stomach tumor and Testicular cancer in [id number]. Last Myocardial Infarction Date:: 04/05/16 History of Any Multi-Drug Resistant Organisms: None Reported Past Surgical History: Heart Catheterization With Stent Additional Past Surgical History / Comment(s): Cancerous tumor removed in stomach and had chemo, bilateral cataract removal, sx for testicular cancer "dissected nodes." Past Anesthesia/Blood Transfusion Reactions: No Reported Reaction Date of Last Stent Placement:: 04/05/16 Past Psychological History: No Psychological Hx Reported Smoking Status: Former smoker Past Alcohol Use History: None Reported Additional Past Alcohol Use History / Comment(s): Smoked pipes at age 31, then switched to cigars, 4-5 per day. Quit in 2009. Past Drug Use History: None Reported Additional Drug Use History / Comment(s): pt started smoking a pipe at ag 31 then swithced to cigars. was smoking 4-5 cigars a day -quit 2009 denies any medical marijuana, marijuana, street drug or alcohol use. He lives at home with his . 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 - Past Family History Mother Family Medical History: No Reported History Additional Family Medical History / Comment(s): Mother is alive at age 88 with no major medical problems. Father Family Medical History: Cancer Additional Family Medical History / Comment(s): Father at age 84 from prostate cancer. Brother(s) Family Medical History: Cancer Additional Family Medical History / Comment(s): Patient has 4 brothers with no major medical problems. Sister(s) Family Medical History: Cancer Additional Family Medical History / Comment(s): Patient has 2 sisters with no major medical problems. Daughter(s) Additional Family Medical History / Comment(s): Patient has 2 brothers with no major medical problems. Medications and Allergies Home Medications Medication Instructions Recorded Confirmed Type Insulin Regular [HumuLIN R] See Protocol SQ ACHS PRN 04/05/16 12/31/18 History Aspirin 81 mg PO DAILY #30 chew 04/09/16 12/31/18 Rx Losartan [Cozaar] 25 mg PO DAILY #30 tab 04/09/16 12/31/18 Rx Nitroglycerin Sl Tabs [Nitrostat] 0.4 mg SUBLINGUAL Q5M PRN #25 tab 04/09/16 12/31/18 Rx Clopidogrel [Plavix] 75 mg PO DAILY 03/02/18 12/31/18 History Famotidine [Pepcid] 20 mg PO DAILY 03/02/18 12/31/18 History Insulin NPH Human Isophane See Protocol SQ ACHS PRN 03/02/18 12/31/18 History [NovoLIN N] metFORMIN HCL [Glucophage] 1,000 mg PO DAILY 03/02/18 12/31/18 History Furosemide [Lasix] 20 mg PO DAILY 12/28/18 12/31/18 History Metoprolol Succinate (ER) [Toprol 50 mg PO DAILY 12/28/18 12/31/18 History Xl] Pravastatin Sodium [Pravachol] 40 mg PO HS 12/28/18 12/31/18 History amLODIPine [Norvasc] 10 mg PO HS 12/28/18 12/31/18 History metFORMIN HCL [Glucophage] 500 mg PO HS 12/31/18 12/31/18 History Allergies Allergy/AdvReac Type Severity Reaction Status Date / Time No Known Allergies Allergy Verified 12/31/18 14:03 Physical Exam Vitals: Vital Signs Temp Pulse Resp BP Pulse Ox 01/02/19 15:00 98.0 F 59 L 16 129/69 97 01/02/19 08:16 65 16 01/02/19 07:00 97.8 F 65 16 162/81 96 01/02/19 05:08 17 01/02/19 01:47 98.8 F 69 17 116/51 97 01/02/19 00:10 14 01/01/19 20:08 99.5 F 65 18 145/66 95 01/01/19 20:00 18 01/01/19 17:07 95 Intake and Output 01/02/19 01/02/19 01/02/19 06:59 14:59 22:59 Output Total 2 Balance -2 Output: Stool 2 Other: Voiding Method Toilet Toilet Urinal Urinal # Voids 1 3 Results 01/03/19 07:06 01/03/19 07:06 CBC 01/02/19 Range/Units 07:18 WBC 6.5 (3.8-10.6) k/uL RBC 4.44 (4.30-5.90) m/uL Hgb 12.8 L (13.0-17.5) gm/dL Hct 38.0 L (39.0-53.0) % Plt Count 147 L (150-450) k/uL Comprehensive Metabolic Panel 01/02/19 Range/Units 07:18 Creatinine 1.54 H (0.66-1.25) mg/dL Current Medications Generic Name Dose Route Start Last Admin Trade Name Freq PRN Reason Stop Dose Admin Amlodipine Besylate 10 mg 12/31/18 21:00 01/01/19 21:18 Norvasc PO 10 mg HS MUNIRA Administration Aspirin 81 mg 01/01/19 09:00 01/02/19 07:48 Aspirin PO 81 mg DAILY MUNIRA Administration Clopidogrel Bisulfate 75 mg 01/01/19 09:00 01/02/19 07:48 Plavix PO 75 mg DAILY MUNIRA Administration Famotidine 20 mg 01/01/19 09:00 01/02/19 07:48 Pepcid PO 20 mg DAILY MUNIRA Administration Furosemide 20 mg 01/01/19 09:00 01/02/19 07:47 Lasix PO 20 mg DAILY MUNIRA Administration Heparin Sodium (Porcine) 5,000 unit 01/01/19 21:00 01/02/19 07:47 Heparin SQ 5,000 unit Q12HR MUNIRA Administration Piperacillin Sod/Tazobactam 100 mls @ 25 mls/hr 12/31/18 16:00 01/02/19 09:04 Sod 3.375 gm/ Sodium Chloride IVPB 25 mls/hr Q8HR MUNIRA Administration Vancomycin HCl 2,250 mg/ 500 mls @ 167 mls/hr 01/02/19 06:00 01/02/19 05:16 Sodium Chloride IVPB 167 mls/hr Q24H MUNIRA Administration Insulin Aspart 0 unit 01/01/19 12:30 01/02/19 12:47 Novolog SQ 5 unit ACHS MUNIRA Administration Protocol Losartan Potassium 25 mg 01/01/19 09:00 01/02/19 07:48 Cozaar PO 25 mg DAILY MUNIRA Administration Metformin HCl 500 mg 12/31/18 21:00 01/01/19 21:17 Glucophage PO 500 mg HS MUNIRA Administration Metformin HCl 1,000 mg 01/01/19 09:00 01/02/19 07:47 Glucophage PO 1,000 mg DAILY MUNIRA Administration Metoprolol Succinate 50 mg 01/01/19 09:00 01/02/19 07:48 Toprol Xl PO 50 mg DAILY MUNIRA Administration Miscellaneous Information 1 each 12/31/18 16:10 Pneumonia Protocol Utilized PO ONCE PRN Per Protocol Miscellaneous Information 1 each 01/01/19 10:31 Pharmacy To Dose Iv Vancomycin MISCELLANE DIRECTED PRN Per Protocol Nitroglycerin 0.4 mg 12/31/18 20:23 Nitrostat SUBLINGUAL Q5M PRN Chest Pain Pravastatin Sodium 40 mg 12/31/18 21:00 01/01/19 21:18 Pravachol PO 40 mg HS MUNIRA Administration Intake and Output 01/02/19 01/02/19 01/02/19 06:59 14:59 22:59 Output Total 2 Balance -2 Output: Stool 2 Other: Voiding Method Toilet Toilet Urinal Urinal # Voids 1 3 01/02/19 07:18 01/02/19 07:18
[2019-01-03 11:27] VITALS: BP 145/75; PULSE 69; RESP 18; TEMP 98.2
[2019-01-03 11:55] LABS: Glucose,Whole Blood 264 mg/dL (75-99)
[2019-01-03] MEDS ORDERED: VANCOMYCIN 2,250 MG in SODIUM CHLORIDE 0.9% 500 ML 500 ML IVPB SCH (22:00)
[2019-01-04 06:48] LABS: Mycoplasma IgM Antibody 0.24 INDEX (<=0.90)
--- NOTE | 2019-01-04 15:34 | P.PN ---
Subjective Progress Note Date: 01/02/19 This is a pleasant 68-year-old male who presented to the emergency department complaining of cough and fever for 1 day. Patient had a SYLVIA performed on Wednesday and is not felt well since the procedure. Patient stated that he had a fever and became weak throughout the day. Patient also complained of a cough. However he denied any shortness of breath or chest pain. Patient was given Tylenol at home prior to arrival to the emergency room. His temperature was 103.1 in the emergency room. Patient's past medical history includes coronary artery disease, diabetes mellitus, hyperlipidemia, hypertension, myocardial infarction, previous heart cath with stent placement. Patient is a former smoker he smoked a pipe from the age of 31 until about 9 years ago. At this time patient is resting in bed with no acute distress. Patient states that he had the SYLVIA for increased shortness of breath and to assess his valve for possible surgery intervention. Patient has history of mitral valve regurg. Patient states that his shortness of breath has increased and he has also noticed some bilateral lower extremity edema over the past few months. Patient states that he is feeling better compared to yesterday. He is no longer having any shortness of breath, fever or chills. Patient does not have any complaints of chest pain and only minimal swelling in the lower extremities. 01/02: The patient is currently on Zosyn and vancomycin. We will add in consult with Dr. Scales to evaluate for pneumonia. Patient has been afebrile, heart rate in the 60s, blood pressure 162/81 and pulse ox 96% on room air. White count is normal at 6.5, hemoglobin 12.8, creatinine 1.54, blood sugars been elevated and patient is NovoLog scale. ProBNP 418. Pro-calcitonin 0.58 which is elevated. Legionella negative. Mycoplasma pneumoniae IgG high and IgM normal. CAT scan of the chest revealed patchy ground last obesity within the lungs may reflect alveolitis or atypical pneumonia. Congestive heart failure could give a similar appearance. Nonspecific mediastinal adenopathy. Pericardial thickening may represent small pericardial effusion. Hiatal hernia. Repeat chest x-ray shows mild cardiomegaly and bibasilar atelectasis. Modified barium swallow was normal. Review Of Systems: Constitutional: No fever, no chills, no night sweats. No weight change. No weakness, fatigue or lethargy. No daytime sleepiness. EENT: No headache. No blurred vision or double vision, no loss of vision. No loss of Hearing, no ringing in the ears, no dizziness. No nasal drainage or congestion. No epistaxis. No sore throat. Lungs: No shortness of breath, reports cough, no sputum production. No wheezing. Cardiovascular: No chest pain, no lower extremity edema. No palpitations. No paroxysmal nocturnal dyspnea. No orthopnea. No lightheadedness or dizziness. No syncopal episodes. Abdominal: no abdominal discomfort. No nausea, vomiting. no diarrhea. No constipation. No bloody or tarry stools. improved loss of appetite. Genitourinary: No dysuria, increased frequency, urgency. No urinary retention. Musculoskeletal: No myalgias. No muscle weakness, no gait dysfunction, no frequent falls. No back pain. No neck pain. Integumentary: No wounds, no lesions. No rash or pruritus. No unusual bruising. No change in hair or nails. Neurologic: No aphasia. No facial droop. No change in mentation. No head injury. No headache. No paralysis. No paresthesia. Psychiatric: No depression. No anxiety. No mood swings. Endocrine: No abnormal blood sugars. No weight change. Objective - Vital Signs Vital signs: Vital Signs Temp 98.8 F 01/02/19 01:47 Pulse 69 01/02/19 01:47 Resp 17 01/02/19 05:08 BP 116/51 01/02/19 01:47 Pulse Ox 97 01/02/19 01:47 Intake & Output 01/01/19 01/02/19 01/02/19 18:59 06:59 18:59 Other: Voiding Method Toilet Urinal # Voids 3 1 - Exam General Appearance: Alert, cooperative, no distress, appears stated age. Neck HEENT: Supple, no lymphadenopathy, no thyroid enlargement, no carotid bruits. Lungs: Clear to auscultation without crackles or wheezes no rhonchi, no deformity. Chest Wall: Chest wall normal expansion with deep inspiration no tenderness and no deformity was found on exam. Heart: Regular rate and rhythm, S1, S2 normal, no murmur, rub or gallop. Back: Symmetric, no curvature, ROM normal, no CVA tenderness. Abdomen: Soft, non-tender, no rebound or rigidity, no hepatosplenomegaly. Extremities: Extremities normal, atraumatic, no cyanosis or edema. Pulses: 2+ and symmetric. Skin: Skin color, texture, tugor normal, no rashes or lesions. Neurologic: Alert oriented x3 cranial nerves II through XII intact, no motor deficit, - Labs CBC & Chem 7: 01/03/19 07:06 01/03/19 07:06 Labs: Abnormal Lab Results - Last 24 Hours (Table) 01/01/19 01/01/19 01/01/19 Range/Units 12:00 16:35 21:00 POC Glucose (mg/dL) 284 H 217 H 277 H (75-99) mg/dL 01/02/19 Range/Units 06:41 POC Glucose (mg/dL) 242 H (75-99) mg/dL Microbiology - Last 24 Hours (Table) 12/31/18 14:34 Blood Culture - Preliminary Blood No Growth after 24 hours 01/01/19 01:21 Urine Culture - Preliminary Urine,Clean Catch Assessment and Plan Plan: 1. Sepsis secondary to pneumonia possibly aspiration. Obtain blood, urine, sputum cultures. CAT scan of the chest as above. Plan I am swallow normal. Patient is continued on Zosyn and vancomycin. Consult with Dr. Scales and cardiology. 2. Shortness of breath secondary to mitral regurg continue Lasix 20 mg by arnold th, previous SYLVIA impression: 3+ central mitral regurg, no PFO 3. Fever. As noted above 4. Diabetes mellitus. Obtain hemoglobin A1c initiate insulin sliding scale, continue metformin 500 mg by mouth at night and 1000 mg daily 5. Hypertension. Continue metoprolol 50 mg daily, amlodipine 10 mg at night, losartan and when he 5 mg daily 6. Hyperlipidemia. 7.Coronary artery disease. Continue Plavix 75 mg daily, aspirin 81 mg daily 8. DVT prophylaxis. Heparin 5000 units subcu every 12 hours 9. GI prophylaxis. Pepcid 20 mg daily CODE STATUS: Full code Discharge plan: To be determined Impression and plan of care have been directed as dictated by the signing physician. Mallorie Etienne nurse practitioner acting as scribe for signing physician.
--- NOTE | 2019-01-04 15:41 | P.DS ---
Providers Date of admission: 12/31/18 16:10 Expected date of discharge: 01/03/19 Attending physician: Petar Gutierrez MD Consults: 01/02/19 11:28 Consult Physician Routine Consulting Provider: Rex Scales Consult Reason/Comments: pneumonia vs ILD Do you want consulting provider notified?: Yes 01/02/19 11:31 Consult Physician Routine Consulting Provider: Wendy Napoles Consult Reason/Comments: recent SYLVIA Do you want consulting provider notified?: Yes Primary care physician: [place] Hospital Course: This is a pleasant 68-year-old male patient of who presented to the emergency department complaining of cough and fever for 1 day. Patient had a SYLVIA performed on Wednesday and is not felt well since the procedure. Patient stated that he had a fever and became weak throughout the day. Patient also complained of a cough. However he denied any shortness of breath or chest pain. Patient was given Tylenol at home prior to arrival to the emergency room. His temperature was 103.1 in the emergency room. Patient's past medical history includes coronary artery disease, diabetes mellitus, hyperlipidemia, hypertension, myocardial infarction, previous heart cath with stent placement. Patient is a former smoker he smoked a pipe from the age of 31 until about 9 years ago. At this time patient is resting in bed with no acute distress. Patient states that he had the SYLVIA for increased shortness of breath and to assess his valve for possible surgery intervention. Patient has history of mitral valve regurg. Patient states that his shortness of breath has increased and he has also noticed some bilateral lower extremity edema over the past few months. Patient states that he is feeling better compared to yesterday. He is no longer having any shortness of breath, fever or chills. Patient does not have any complaints of chest pain and only minimal swelling in the lower extremities. 01/02: The patient is currently on Zosyn and vancomycin. We will add in consult with Dr. Scales to evaluate for pneumonia. Patient has been afebrile, heart rate in the 60s, blood pressure 162/81 and pulse ox 96% on room air. White count is normal at 6.5, hemoglobin 12.8, creatinine 1.54, blood sugars been elevated and patient is NovoLog scale. ProBNP 418. Pro-calcitonin 0.58 which is elevated. Legionella negative. Mycoplasma pneumoniae IgG high and IgM normal. CAT scan of the chest revealed patchy ground last obesity within the lungs may reflect alveolitis or atypical pneumonia. Congestive heart failure could give a similar appearance. Nonspecific mediastinal adenopathy. Pericardial thickening may represent small pericardial effusion. Hiatal hernia. Repeat chest x-ray shows mild cardiomegaly and bibasilar atelectasis. Modified barium swallow was normal. 01/03: Patient has been evaluated by cardiology without signs of heart failure with planned follow-up with Dr. Connors as already scheduled at the end of December. Patient has been evaluated by Dr. Scales for bilateral pneumonia and differential diagnose ear. Plan to continue antibiotics. Patient's breathing status is much improved and he feels he is safe to go home today. He has been afebrile, heart rate 69, blood pressure 145/75, pulse ox 97% on room air. A BUN 27 creatinine 1.46, CBC is normal. Blood sugars are elevated secondary to steroids. We will transition antibiotics to Augmentin and patient will be discharged home in stable condition. Discharge diagnoses: 1. Sepsis secondary to pneumonia possibly aspiration. 2. Shortness of breath secondary to mitral regurg 3. Fever. 4. Diabetes mellitus Type II uncontrolled with hyperglycemia secondary to steroids. 5. Hypertension. 6. Hyperlipidemia. 7. Coronary artery disease. 8. Chronic kidney disease stage 3 Discharge plan: Home Impression and plan of care have been directed as dictated by the signing physician. Mallorie Etienne nurse practitioner acting as scribe for signing ph ysician. Patient Condition at Discharge: Good Plan - Discharge Summary Discharge Rx Participant: No New Discharge Prescriptions: New Amoxicillin/Potassium Clav [Augmentin 875-125 Tablet] 1 each PO Q12HR #8 tab Continue Aspirin 81 mg PO DAILY #30 chew Losartan [Cozaar] 25 mg PO DAILY #30 tab Nitroglycerin Sl Tabs [Nitrostat] 0.4 mg SUBLINGUAL Q5M PRN #25 tab PRN Reason: Chest Pain Insulin NPH Human Isophane [NovoLIN N] See Protocol SQ ACHS PRN PRN Reason: Blood Sugar - High Famotidine [Pepcid] 20 mg PO DAILY Clopidogrel [Plavix] 75 mg PO DAILY metFORMIN HCL [Glucophage] 1,000 mg PO DAILY amLODIPine [Norvasc] 10 mg PO HS Pravastatin Sodium [Pravachol] 40 mg PO HS Metoprolol Succinate (ER) [Toprol XL] 50 mg PO DAILY Furosemide [Lasix] 20 mg PO DAILY metFORMIN HCL [Glucophage] 500 mg PO HS Discontinued Insulin Regular [HumuLIN R] See Protocol SQ ACHS PRN PRN Reason: Blood Sugar - High Discharge Medication List Aspirin 81 mg PO DAILY #30 chew 04/09/16 [Rx] Losartan [Cozaar] 25 mg PO DAILY #30 tab 04/09/16 [Rx] Nitroglycerin Sl Tabs [Nitrostat] 0.4 mg SUBLINGUAL Q5M PRN #25 tab 04/09/16 [Rx] Clopidogrel [Plavix] 75 mg PO DAILY 03/02/18 [History] Famotidine [Pepcid] 20 mg PO DAILY 03/02/18 [History] Insulin NPH Human Isophane [NovoLIN N] See Protocol SQ ACHS PRN 03/02/18 [History] metFORMIN HCL [Glucophage] 1,000 mg PO DAILY 03/02/18 [History] Furosemide [Lasix] 20 mg PO DAILY 12/28/18 [History] Metoprolol Succinate (ER) [Toprol XL] 50 mg PO DAILY 12/28/18 [History] Pravastatin Sodium [Pravachol] 40 mg PO HS 12/28/18 [History] amLODIPine [Norvasc] 10 mg PO HS 12/28/18 [History] metFORMIN HCL [Glucophage] 500 mg PO HS 12/31/18 [History] Amoxicillin/Potassium Clav [Augmentin 875-125 Tablet] 1 each PO Q12HR #8 tab 01/03/19 [Rx] Follow up Appointment(s)/Referral(s): Pio Connors MD [STAFF PHYSICIAN] - 3 Weeks (Patient has scheduled appointment end of December.) Cassius Richardson MD [Primary Care Provider] - 01/12/19 9:15 am (With Dr Gutierrez) Rex Scales MD [STAFF PHYSICIAN] - 1 Week (Please call office to make appointment. Office closed) Discharge Disposition: HOME SELF-CARE
== END 2019-01-03 15:02 | disposition home or self-care (01) | DRG 871 ==
LOC: EC 13:46 → 3NMEDONC 16:10 → 4SSUR 18:15
PROVIDERS: ADMIT Internal Medicine; ATTEND Internal Medicine
DX: A41.9 Sepsis, unspecified organism (principal); J69.0 Pneumonitis due to inhalation of food and vomit; J98.11 Atelectasis; E11.22 Type 2 diabetes mellitus with diabetic chronic kidney disease; I13.10 Hypertensive heart and chronic kidney disease without heart failure, with stage 1 through stage 4 chronic kidney disease, or unspecified chronic kidney disease; N18.3 Chronic kidney disease, stage 3 (moderate); E66.01 Morbid (severe) obesity due to excess calories; E11.65 Type 2 diabetes mellitus with hyperglycemia; G47.33 Obstructive sleep apnea (adult) (pediatric); K44.9 Diaphragmatic hernia without obstruction or gangrene; I49.3 Ventricular premature depolarization; E78.5 Hyperlipidemia, unspecified; I34.0 Nonrheumatic mitral (valve) insufficiency; I25.10 Atherosclerotic heart disease of native coronary artery without angina pectoris; I25.2 Old myocardial infarction; H40.9 Unspecified glaucoma; Z79.82 Long term (current) use of aspirin; Z68.34 Body mass index [BMI] 34.0-34.9, adult; Z79.02 Long term (current) use of antithrombotics/antiplatelets; Z79.4 Long term (current) use of insulin; Z79.899 Other long term (current) drug therapy; Z85.47 Personal history of malignant neoplasm of testis; Z95.5 Presence of coronary angioplasty implant and graft; Z85.028 Personal history of other malignant neoplasm of stomach; Z87.891 Personal history of nicotine dependence; Z98.42 Cataract extraction status, left eye; Z98.41 Cataract extraction status, right eye; Z80.42 Family history of malignant neoplasm of prostate; H57.9 Unspecified disorder of eye and adnexa
CPT/HCPCS: 36415; 71046; 71250; 74230; 80053; 81001; 82565; 83036; 83605; 83880; 84145; 85025; 85610; 85730; 86738; 87040; 87086; 87449; 87502; 93005; 96361; 96365; 96367; 99285

== ENCOUNTER 2019-06-14 03:33 | Emergency (ER) | payer MEDICARE, BC ==
--- NOTE | 2019-06-14 03:35 | ED ---
General Adult HPI - General Stated complaint: SOB Time Seen by Provider: 06/14/19 03:35 - History of Present Illness Initial comments: Justin is a 68 yo male who presents to the emergency department today via EMS for evaluation of cough, possible syncopal episode. Patient reports that he had a CABG procedure by Dr. flores at the [facility] on , June 08. Patient was subsequently discharged home on Wednesday, patient reports that Mo evening he had a coughing episode where he coughed so hard he nearly passed out. reports that since that time he's had for 5 episodes where he seems fine to begin coughing his face will turned quite red his eyes will roll back and he will pass out. They discussed this with home health care nurse who checked on him today and advised that if it happened again he needed called the ambulance. This morning the patient had another coughing episode at which time EMS was contacted. Patient reports that when he is not having coughing episodes he's feeling well he's not having any chest pain palpitation shortness of breath. Cough is minimally productive. She denies any fevers chills nausea vomiting or change in bowel or bladder habits. Patient reports she is scheduled to follow-up with his cardiothoracic surgeon on July 24, he currently does not have a follow-up appointment with his primary heater room helper. - Related Data Home Medications Medication Instructions Recorded Confirmed Clopidogrel [Plavix] 75 mg PO DAILY 03/02/18 12/31/18 Famotidine [Pepcid] 20 mg PO DAILY 03/02/18 12/31/18 Insulin NPH Human Isophane See Protocol SQ ACHS PRN 03/02/18 12/31/18 [NovoLIN N] metFORMIN HCL [Glucophage] 1,000 mg PO DAILY 03/02/18 12/31/18 Furosemide [Lasix] 20 mg PO DAILY 12/28/18 12/31/18 Metoprolol Succinate (ER) [Toprol 50 mg PO DAILY 12/28/18 12/31/18 XL] Pravastatin Sodium [Pravachol] 40 mg PO HS 12/28/18 12/31/18 amLODIPine [Norvasc] 10 mg PO HS 12/28/18 12/31/18 metFORMIN HCL [Glucophage] 500 mg PO HS 12/31/18 12/31/18 Previous Rx's Medication Instructions Recorded Aspirin 81 mg PO DAILY #30 chew 04/09/16 Losartan [Cozaar] 25 mg PO DAILY #30 tab 04/09/16 Nitroglycerin Sl Tabs [Nitrostat] 0.4 mg SUBLINGUAL Q5M PRN #25 tab 04/09/16 Amoxicillin/Potassium Clav 1 each PO Q12HR #8 tab 01/03/19 [Augmentin 875-125 Tablet] Allergies Allergy/AdvReac Type Severity Reaction Status Date / Time No Known Allergies Allergy Verified 12/31/18 14:03 Review of Systems ROS Statement: Those systems with pertinent positive or pertinent negative responses have been documented in the HPI. ROS Other: All systems not noted in ROS Statement are negative. 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 Cancerous stomach tumor and Testicular cancer in [id number]. Last Myocardial Infarction Date:: 04/05/16 History of Any Multi-Drug Resistant Organisms: None Reported Past Surgical History: Heart Catheterization With Stent Additional Past Surgical History / Comment(s): Cancerous tumor removed in stomach and had chemo, bilateral cataract removal, sx for testicular cancer "dissected nodes." Past Anesthesia/Blood Transfusion Reactions: No Reported Reaction Date of Last Stent Placement:: 04/05/16 Past Psychological History: No Psychological Hx Reported Smoking Status: Former smoker Past Alcohol Use History: None Reported Additional Past Alcohol Use History / Comment(s): Smoked pipes at age 31, then switched to cigars, 4-5 per day. Quit in 2009. Past Drug Use History: None Reported Additional Drug Use History / Comment(s): pt started smoking a pipe at ag 31 then swithced to cigars. was smoking 4-5 cigars a day -quit 2009 denies any medical marijuana, marijuana, street drug or alcohol use. He lives at home with his . 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 - Past Family History Mother Family Medical History: No Reported History Additional Family Medical History / Comment(s): Mother is alive at age 88 with no major medical problems. Father Family Medical History: Cancer Additional Family Medical History / Comment(s): Father at age 84 from prostate cancer. Brother(s) Family Medical History: Cancer Additional Family Medical History / Comment(s): Patient has 4 brothers with no major medical problems. Sister(s) Family Medical History: Cancer Additional Family Medical History / Comment(s): Patient has 2 sisters with no major medical problems. Daughter(s) Additional Family Medical History / Comment(s): Patient has 2 brothers with no major medical problems. General Exam - General Exam Comments Initial Comments: Physical Exam GENERAL: Patient is well-developed and well-nourished. Patient is nontoxic and well-hydrated and is in no distress. HENT: Normocephalic, Atraumatic. EYES: PERRL, EOMI PULMONARY: Unlabored respirations. Crackles at bases CARDIOVASCULAR: There is a regular rate and rhythm without any murmurs gallops or rubs. Well healing sternotomy incision - no signs of infection ABDOMEN: Soft and nontender with normal bowel sounds. SKIN: Sternotomy incision - well healing : Deferred NEUROLOGIC: Patient is alert and oriented x3. Moving all extremities spontaneously MUSCULOSKELETAL: Normal extremities with adequate strength and full range of motion. No lower extremity swelling or edema. No calf tenderness. PSYCHIATRIC: Normal psychiatric evaluation. Course Vital Signs 06/14/19 06/14/19 03:46 03:50 Temperature 97.6 F Pulse Rate 69 Respiratory 18 18 Rate Blood Pressure 165/73 O2 Sat by Pulse 97 Oximetry EKG Findings - EKG Comments: EKG Findings:: EKG was obtained due to recent cardiothoracic surgery and complain of near syncope, EKG was obtained at 4:14 AM, rate of 69 rhythm is sinus there is a normal axis, there are normal intervals, SD 208, QRS 106, QTC is 422 there are no acute ST elevations or depressions no evidence of acute ischemia, infarction or arrhythmia. Medical Decision Making - Medical Decision Making Patient was seen and evaluated history is obtained from patient, and medical record This 68-year-old gentleman is 6 days status post CABG at the [facility] patient's having coughing episodes with near syncope Labs with CKD, no leukocytosis, anemia consistent with post op CXR with pneumonia - Cefepime and Azithromycin ordered Patient does have mildly elevated troponin is likely secondary to recent s urgery, and addition he has significantly elevated BNP indicating heart failure. Chest x-ray is concerning for new bilateral pulmonary infiltrates given that the patient is postoperative he will be treated with cefepime and azithromycin. Patient care was discussed with Dr. Brown the [facility] she except the patient is an ER to ER transfer for evaluation by patient's cardiothoracic surgeon. Patient and family are aware that the patient is being transferred for evaluation by the cardiothoracic surgery team and that the patient may not necessarily be admitted to the [facility]. Patient and family are agreeable to this plan. - Lab Data Result diagrams: 06/14/19 04:24 06/14/19 04:24 Lab Results 06/14/19 06/14/19 06/14/19 Range/Units 04:24 04:24 04:24 WBC 8.7 (3.8-10.6) k/uL RBC 4.01 L (4.30-5.90) m/uL Hgb 11.0 L (13.0-17.5) gm/dL Hct 35.0 L (39.0-53.0) % MCV 87.2 (80.0-100.0) fL MCH 27.3 (25.0-35.0) pg MCHC 31.3 (31.0-37.0) g/dL RDW 13.8 (11.5-15.5) % Plt Count 246 (150-450) k/uL Neutrophils % 72 % Lymphocytes % 13 % Monocytes % 9 % Eosinophils % 3 % Basophils % 2 % Neutrophils # 6.3 (1.3-7.7) k/uL Lymphocytes # 1.1 (1.0-4.8) k/uL Monocytes # 0.8 (0-1.0) k/uL Eosinophils # 0.2 (0-0.7) k/uL Basophils # 0.2 (0-0.2) k/uL PT (9.0-12.0) sec INR (<1.2) APTT (22.0-30.0) sec Sodium 138 (137-145) mmol/L Potassium 4.3 (3.5-5.1) mmol/L Chloride 102 (98-107) mmol/L Carbon Dioxide 27 (22-30) mmol/L Anion Gap 9 mmol/L BUN 49 H (9-20) mg/dL Creatinine 1.57 H (0.66-1.25) mg/dL Est GFR (CKD-EPI)AfAm 52 (>60 ml/min/1.73 sqM) Est GFR (CKD-EPI)NonAf 45 (>60 ml/min/1.73 sqM) Glucose 100 H (74-99) mg/dL Calcium 9.0 (8.4-10.2) mg/dL Magnesium 3.0 H (1.6-2.3) mg/dL Total Bilirubin 0.7 (0.2-1.3) mg/dL AST 20 (17-59) U/L ALT 24 (21-72) U/L Alkaline Phosphatase 66 (38-126) U/L Troponin I (0.000-0.034) ng/mL NT-Pro-B Natriuret Pep 2160 pg/mL Total Protein 6.7 (6.3-8.2) g/dL Albumin 3.7 (3.5-5.0) g/dL 06/14/19 06/14/19 Range/Units 04:24 04:24 WBC (3.8-10.6) k/uL RBC (4.30-5.90) m/uL Hgb (13.0-17.5) gm/dL Hct (39.0-53.0) % MCV (80.0-100.0) fL MCH (25.0-35.0) pg MCHC (31.0-37.0) g/dL RDW (11.5-15.5) % Plt Count (150-450) k/uL Neutrophils % % Lymphocytes % % Monocytes % % Eosinophils % % Basophils % % Neutrophils # (1.3-7.7) k/uL Lymphocytes # (1.0-4.8) k/uL Monocytes # (0-1.0) k/uL Eosinophils # (0-0.7) k/uL Basophils # (0-0.2) k/uL PT 9.8 (9.0-12.0) sec INR 0.9 (<1.2) APTT 28.7 (22.0-30.0) sec Sodium (137-145) mmol/L Potassium (3.5-5.1) mmol/L Chloride (98-107) mmol/L Carbon Dioxide (22-30) mmol/L Anion Gap mmol/L BUN (9-20) mg/dL Creatinine (0.66-1.25) mg/dL Est GFR (CKD-EPI)AfAm (>60 ml/min/1.73 sqM) Est GFR (CKD-EPI)NonAf (>60 ml/min/1.73 sqM) Glucose (74-99) mg/dL Calcium (8.4-10.2) mg/dL Magnesium (1.6-2.3) mg/dL Total Bilirubin (0.2-1.3) mg/dL AST (17-59) U/L ALT (21-72) U/L Alkaline Phosphatase (38-126) U/L Troponin I 0.857 H* (0.000-0.034) ng/mL NT-Pro-B Natriuret Pep pg/mL Total Protein (6.3-8.2) g/dL Albumin (3.5-5.0) g/dL Disposition Clinical Impression: Pneumonia, Post-operative complication Disposition: OTHER INSTITUTION NOT DEFINED Condition: Stable Referrals: Louann Flores MD [REFERRING] - 1-2 days - Out of Hospital Transfer - Req. Specs Out of Hospital Transfer - Requested Specifics: Other Emergency Center ([facility])
[2019-06-14 03:50] VITALS: TEMP 97.6
[2019-06-14 04:37] LABS: Basophils # (A) 0.2 k/uL (0-0.2); Basophils % (A) 2 %; Eosinophils # (A) 0.2 k/uL (0-0.7); Eosinophils % (A) 3 %; Lymphocytes # (A) 1.1 k/uL (1.0-4.8); Lymphocytes % (A) 13 %; MCH 27.3 pg (25.0-35.0); MCHC 31.3 g/dL (31.0-37.0); MCV 87.2 fL (80.0-100.0); Mean Platelet Volume 6.4; Monocytes # (A) 0.8 k/uL (0-1.0); Monocytes % (A) 9 %; Neutrophils # (A) 6.3 k/uL (1.3-7.7); Neutrophils % (A) 72 %; Platelet Count 246 k/uL (150-450); RBC 4.01 m/uL (4.30-5.90); RDW 13.8 % (11.5-15.5); WBC 8.7 k/uL (3.8-10.6)
[2019-06-14 04:47] LABS: INR 0.9 (<1.2); Partial Thromboplastin Time 28.7 sec (22.0-30.0); Prothrombin Time 9.8 sec (9.0-12.0)
[2019-06-14 04:48] LABS: Albumin 3.7 g/dL (3.5-5.0); Potassium 4.3 mmol/L (3.5-5.1); Total Bilirubin 0.7 mg/dL (0.2-1.3); Total Protein 6.7 g/dL (6.3-8.2)
--- NOTE | 2019-06-14 04:51 | XR ---
EXAMINATION TYPE: XR chest 2V DATE OF EXAM: 06/14/2019 COMPARISON: 01/01/2019 HISTORY: Difficulty breathing TECHNIQUE: Frontal and lateral views of the chest are obtained. FINDINGS: There is some patchy infiltrate and atelectasis at the left lung base and also right midlu ng field. There is no heart failure. There are sternal wires. There is no pleural effusion. Upper del[place] g smith are clear. IMPRESSION: Bilateral pulmonary infiltrates and atelectasis are new compared to last exam. No heart failure seen.
[2019-06-14] MEDS ORDERED: FUROSEMIDE 10 MG/ML 4 ML VIAL IV STA (05:24)
[2019-06-14] MEDS ORDERED: AZITHROMYCIN 500 MG in SODIUM CHLORIDE 0.9% 250 ML IVPB STA (05:24)
[2019-06-14] MEDS ORDERED: CEFEPIME 2 GM in SODIUM CHLORIDE 0.9% 100 ML IVPB STA (05:24)
[2019-06-14 06:02] VITALS: BP 127/88; PULSE 67; RESP 16
== END 2019-06-14 06:40 | disposition other institution (70) ==
LOC: EC 03:33 → SUPCPDRO 03:33 → EC 06:40
DX: J18.9 Pneumonia, unspecified organism (principal); T81.9XXA Unspecified complication of procedure, initial encounter; I25.119 Atherosclerotic heart disease of native coronary artery with unspecified angina pectoris; E11.9 Type 2 diabetes mellitus without complications; E78.5 Hyperlipidemia, unspecified; I25.2 Old myocardial infarction; I11.0 Hypertensive heart disease with heart failure; I50.9 Heart failure, unspecified; E11.39 Type 2 diabetes mellitus with other diabetic ophthalmic complication; H40.9 Unspecified glaucoma; H42 Glaucoma in diseases classified elsewhere; Z79.02 Long term (current) use of antithrombotics/antiplatelets; Z79.84 Long term (current) use of oral hypoglycemic drugs; Z79.899 Other long term (current) drug therapy; Z87.891 Personal history of nicotine dependence; Z95.1 Presence of aortocoronary bypass graft; Z85.47 Personal history of malignant neoplasm of testis
CPT/HCPCS: 36415; 93005; 83880; 80053; 83735; 84484; 85025; 85610; 85730; 71046; 99285; 96365; 96368; 96375; J1940; J0456; J0692

== ENCOUNTER → 2020-01-23 | Outpatient (CLI) | payer MEDICARE, BC ==
--- NOTE | 2020-01-24 06:32 | MR ---
EXAMINATION TYPE: MR knee RT wo con DATE OF EXAM: 01/23/2020 COMPARISON: NONE HISTORY: Rt knee pain, tear of medial meniscus per order. TECHNIQUE: Multiplanar, multisequence images of the knee is performed without IV contrast. FINDINGS: Exam noted suboptimal due to patient motion due to underlying neuropathy per patient. MEDIAL MENISCUS: Posterior horn shows truncation with abnormal signal undercutting majority of the in ferior surface. Triangular-shaped signal occupies central portion of the anterior horn. LATERAL MENISCUS: Horizontal and triangular increased signal anterior horn is present. There is verti asuncion increased signal extending to superior articular surface sagittal image 26 CRUCIATE LIGAMENTS: The posterior cruciate ligament is intact. Anterior cruciate ligament shows marke d increased signal and thickening. COLLATERAL LIGAMENTS: The medial collateral ligament and lateral collateral ligament complex are inta ct. Mild fluid signal surrounds medial collateral ligaments coronal image 20 for reference. EXTENSOR MECHANISM: Visualized quadriceps and patellar tendons are intact. EFFUSION: There is moderate size suprapatellar joint effusion. POPLITEAL CYST: Moderate size popliteal/almeida cyst measuring 6.3 cm long axis sagittal image 9. TRICOMPARTMENT SPACES: Mild to moderate tricompartment joint space loss greatest patellofemoral srinath rtment with mild spurring. CARTILAGE: Some chondromalacia patella with thinning of articular cartilage posterior patellar pole p articularly superior aspect. BONE MARROW SIGNAL: No focal abnormal marrow signal is appreciated. OTHER: No additional significant abnormality is appreciated. IMPRESSION: 1. Confirmation of complex full-thickness tear posterior horn medial meniscus. 2. Full-thickness tear anterior horn of lateral meniscus. 3. Mild to moderate tricompartment degenerative changes greatest patellofemoral compartment as detail ed above. 4. Moderate-sized suprapatellar joint effusion. 5. Moderate-sized popliteal cyst. 6. Mild MCL sprain injury. 7. ACL myxoid degeneration. 8. Intrasubstance tearing anterior horn of medial meniscus.
== END | disposition home or self-care (01) ==
LOC: RADMRIMAIN 07:30
PROVIDERS: ATTEND Orthopaedic Surgery Adult Reconstructive Orthopaedic Surgery
DX: S83.281A Other tear of lateral meniscus, current injury, right knee, initial encounter (principal); S83.241A Other tear of medial meniscus, current injury, right knee, initial encounter; S83.411A Sprain of medial collateral ligament of right knee, initial encounter; M71.21 Synovial cyst of popliteal space [Baker], right knee; M17.11 Unilateral primary osteoarthritis, right knee

== ENCOUNTER → 2021-09-04 | Outpatient (CLI) | payer MEDICARE, BC | END | disposition home or self-care (01) | LOC: RADUSWWP 13:39 | PROVIDERS: ATTEND Podiatrist | DX: I73.9 Peripheral vascular disease, unspecified (principal); L97.512 Non-pressure chronic ulcer of other part of right foot with fat layer exposed; I10 Essential (primary) hypertension; E78.5 Hyperlipidemia, unspecified | CPT/HCPCS: 93922 ==

== ENCOUNTER 2021-09-12 10:34 | Inpatient (IN) | payer MEDICARE, BC ==
[2021-09-12] MEDS ORDERED: PIPERACILLIN-TAZOBACTAM 3.375 GM in SODIUM CHLORIDE 0.9% 100 ML IVPB STA (11:10)
[2021-09-12] MEDS ORDERED: VANCOMYCIN IV PER PHARMACY 1 EACH MISC MISCELLANE PRN (11:10)
[2021-09-12] MEDS ORDERED: VANCOMYCIN 1,750 MG in SODIUM CHLORIDE 0.9% 500 ML 500 ML IVPB STA (11:15)
[2021-09-12] MEDS: SODIUM CHLORIDE 0.9% 500 ML 500 ML IV SCH ×2 (11:56→12:43)
[2021-09-12 12:09] LABS: Calcium 10.1 mg/dL (8.4-10.2); Potassium 5.2 mmol/L (3.5-5.1); Total Bilirubin 0.7 mg/dL (0.2-1.3); Total Protein 7.7 g/dL (6.3-8.2)
--- NOTE | 2021-09-12 12:13 | ED ---
General Adult HPI - General Chief complaint: Extremity Problem,Nontraumatic Stated complaint: toe infectoin Time Seen by Provider: 09/12/21 10:45 Source: patient, RN notes reviewed, old records reviewed Mode of arrival: ambulatory Limitations: no limitations - History of Present Illness Initial comments: This is a 70-year-old male who is a diabetic. Patient states about 3 weeks ago he had a infection on the right fifth toe which is gotten progressively worse today he went and saw his drum drier operator and the drum drier operator says they are going to indicate to tell because the infection is not improving with antibiotics. Patient denies any fever chills. Patient denies any redness going up the foot or up the leg. Patient denies any other problems at this time. - Related Data Home Medications Medication Instructions Recorded Confirmed metFORMIN HCL [Glucophage] 1,000 mg PO DAILY 03/02/18 09/12/21 Pravastatin Sodium [Pravachol] 40 mg PO HS 12/28/18 09/12/21 metFORMIN HCL [Glucophage] 500 mg PO HS 12/31/18 09/12/21 Aspirin 81 mg PO BID 09/12/21 09/12/21 Cholecalciferol [Vitamin D3 (25 25 mcg PO DAILY 09/12/21 09/12/21 Mcg = 1000 Iu)] Dorzolamide-Timol 2.23%/0.68% 1 drop BOTH EYES BID 09/12/21 09/12/21 [Cosopt] Doxycycline Hyclate 100 mg PO BID 09/12/21 09/12/21 Insulin NPH Hum/Reg Insulin Hm 25 unit SQ AC-SUPPER 09/12/21 09/12/21 [NovoLIN 70-30 100 UNIT/ML VIAL] Insulin NPH Hum/Reg Insulin Hm 40 unit SQ AC-BRKFST 09/12/21 09/12/21 [NovoLIN 70-30 100 UNIT/ML VIAL] Latanoprost [Xalatan 0.005%] 1 drop BOTH EYES HS 09/12/21 09/12/21 Losartan Potassium 50 mg PO BID 09/12/21 09/12/21 Ubidecarenone [Co Q-10] 100 mg PO DAILY 09/12/21 09/12/21 Allergies Allergy/AdvReac Type Severity Reaction Status Date / Time No Known Allergies Allergy Verified 09/12/21 11:28 Review of Systems ROS Statement: Those systems with pertinent positive or pertinent negative responses have been documented in the HPI. ROS Other: All systems not noted in ROS Statement are negative. 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 Cancerous stomach tumor and Testicular cancer in [id number]. Last Myocardial Infarction Date:: 04/05/16 History of Any Multi-Drug Resistant Organisms: None Reported Past Surgical History: Heart Catheterization With Stent Additional Past Surgical History / Comment(s): Cancerous tumor removed in stomach and had chemo, bilateral cataract removal, sx for testicular cancer "dissected nodes." Past Anesthesia/Blood Transfusion Reactions: No Reported Reaction Date of Last Stent Placement:: 04/05/16 Past Psychological History: No Psychological Hx Reported Past Alcohol Use History: None Reported Additional Past Alcohol Use History / Comment(s): Smoked pipes at age 31, then switched to cigars, 4-5 per day. Quit in 2009. Past Drug Use History: None Reported Additional Drug Use History / Comment(s): pt started smoking a pipe at ag 31 then swithced to cigars. was smoking 4-5 cigars a day -quit 2009 denies any medical marijuana, marijuana, street drug or alcohol use. He lives at home with his . 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 - Past Family History Mother Family Medical History: No Reported History Additional Family Medical History / Comment(s): Mother is alive at age 88 with no major medical problems. Father Family Medical History: Cancer Additional Family Medical History / Comment(s): Father at age 84 from prostate cancer. Brother(s) Family Medical History: Cancer Additional Family Medical History / Comment(s): Patient has 4 brothers with no major medical problems. Sister(s) Family Medical History: Cancer Additional Family Medical History / Comment(s): Patient has 2 sisters with no major medical problems. Daughter(s) Additional Family Medical History / Comment(s): Patient has 2 brothers with no major medical problems. General Exam - General Exam Comments Initial Comments: GENERAL: Patient is well-developed and well-nourished. Patient is nontoxic and well- hydrated and is in mild distress. ENT: Neck is soft and supple. No significant lymphadenopathy is noted. Oropharynx is clear. Moist mucous membranes. Neck has full range of motion without eliciting any pain. EYES: The sclera were anicteric and conjunctiva were pink and moist. Extraocular movements were intact and pupils were equal round and reactive to light. Eyelids were unremarkable. PULMONARY: Unlabored respirations. Good breath sounds bilaterally. No audible rales rhonchi or wheezing was noted. CARDIOVASCULAR: There is a regular rate and rhythm without any murmurs gallops or rubs. ABDOMEN: Soft and nontender with normal bowel sounds. SKIN: Skin is clear with no lesions or rashes and otherwise unremarkable. NEUROLOGIC: Patient is alert and oriented x3. Cranial nerves II through XII are grossly intact. Motor and sensory are also intact. Normal speech, volume and content. Symmetrical smile. MUSCULOSKELETAL: Normal extremities with adequate strength and full range of motion. Patient's right fifth toe has a ulcer on the lateral aspect and necrosis on that toe. LYMPHATICS: No significant lymphadenopathy is noted PSYCHIATRIC: Normal psychiatric evaluation. Limitations: no limitations Course Vital Signs 09/12/21 09/12/21 10:44 11:59 Temperature 97.4 F L Pulse Rate 69 67 Respiratory 20 18 Rate Blood Pressure 142/84 138/79 O2 Sat by Pulse 99 99 Oximetry Medical Decision Making - Medical Decision Making EKG shows sinus rhythm at 60 bpm TX interval is 218 QRS is 110 QT interval 392 QTC is 420. Patient's EKG shows no ST segment elevation or depression. X-ray of the toe shows no acute abnormality. I reviewed spoken to Dr. Will he wanted the patient admitted to medicine he wanted to be consult in he also wanted to consult infectious disease. Patient was started on vancomycin and Zosyn in the emergency department. - Lab Data Result diagrams: 09/12/21 11:20 09/12/21 11:20 Lab Results 09/12/21 09/12/21 09/12/21 Range/Units 11:20 11:20 11:20 WBC 9.0 (3.8-10.6) k/uL RBC 5.04 (4.30-5.90) m/uL Hgb 14.4 (13.0-17.5) gm/dL Hct 43.5 (39.0-53.0) % MCV 86.3 (80.0-100.0) fL MCH 28.5 (25.0-35.0) pg MCHC 33.0 (31.0-37.0) g/dL RDW 13.8 (11.5-15.5) % Plt Count 302 (150-450) k/uL MPV 7.0 Neutrophils % 77 % Lymphocytes % 15 % Monocytes % 5 % Eosinophils % 1 % Basophils % 0 % Neutrophils # 6.9 (1.3-7.7) k/uL Lymphocytes # 1.3 (1.0-4.8) k/uL Monocytes # 0.5 (0-1.0) k/uL Eosinophils # 0.1 (0-0.7) k/uL Basophils # 0.0 (0-0.2) k/uL Sodium 139 (137-145) mmol/L Potassium 5.2 H (3.5-5.1) mmol/L Chloride 106 (98-107) mmol/L Carbon Dioxide 24 (22-30) mmol/L Anion Gap 9 mmol/L BUN 39 H (9-20) mg/dL Creatinine 1.44 H (0.66-1.25) mg/dL Est GFR (CKD-EPI)AfAm 57 (>60 ml/min/1.73 sqM) Est GFR (CKD-EPI)NonAf 49 (>60 ml/min/1.73 sqM) Glucose 157 H (74-99) mg/dL Plasma Lactic Acid Eder (0.7-2.0) mmol/L Calcium 10.1 (8.4-10.2) mg/dL Total Bilirubin 0.7 (0.2-1.3) mg/dL AST 21 (17-59) U/L ALT 17 (4-49) U/L Alkaline Phosphatase 100 (38-126) U/L Total Protein 7.7 (6.3-8.2) g/dL Albumin 4.0 (3.5-5.0) g/dL Urine Color Light Yellow Urine Appearance Clear (Clear) Urine pH 5.5 (5.0-8.0) Ur Specific Douglass 1.015 (1.001-1.035) Urine Protein Trace H (Negative) Urine Glucose (UA) Negative (Negative) Urine Ketones Negative (Negative) Urine Blood Negative (Negative) Urine Nitrite Negative (Negative) Urine Bilirubin Negative (Negative) Urine Urobilinogen <2.0 (<2.0) mg/dL Ur Leukocyte Esterase Negative (Negative) Coronavirus (PCR) (Not Detectd) 09/12/21 09/12/21 Range/Units 11:20 11:50 WBC (3.8-10.6) k/uL RBC (4.30-5.90) m/uL Hgb (13.0-17.5) gm/dL Hct (39.0-53.0) % MCV (80.0-100.0) fL MCH (25.0-35.0) pg MCHC (31.0-37.0) g/dL RDW (11.5-15.5) % Plt Count (150-450) k/uL MPV Neutrophils % % Lymphocytes % % Monocytes % % Eosinophils % % Basophils % % Neutrophils # (1.3-7.7) k/uL Lymphocytes # (1.0-4.8) k/uL Monocytes # (0-1.0) k/uL Eosinophils # (0-0.7) k/uL Basophils # (0-0.2) k/uL Sodium (137-145) mmol/L Potassium (3.5-5.1) mmol/L Chloride (98-107) mmol/L Carbon Dioxide (22-30) mmol/L Anion Gap mmol/L BUN (9-20) mg/dL Creatinine (0.66-1.25) mg/dL Est GFR (CKD-EPI)AfAm (>60 ml/min/1.73 sqM) Est GFR (CKD-EPI)NonAf (>60 ml/min/1.73 sqM) Glucose (74-99) mg/dL Plasma Lactic Acid Eder 0.9 (0.7-2.0) mmol/L Calcium (8.4-10.2) mg/dL Total Bilirubin (0.2-1.3) mg/dL AST (17-59) U/L ALT (4-49) U/L Alkaline Phosphatase (38-126) U/L Total Protein (6.3-8.2) g/dL Albumin (3.5-5.0) g/dL Urine Color Urine Appearance (Clear) Urine pH (5.0-8.0) Ur Specific Douglass (1.001-1.035) Urine Protein (Negative) Urine Glucose (UA) (Negative) Urine Ketones (Negative) Urine Blood (Negative) Urine Nitrite (Negative) Urine Bilirubin (Negative) Urine Urobilinogen (<2.0) mg/dL Ur Leukocyte Esterase (Negative) Coronavirus (PCR) Not Detected (Not Detectd) Disposition Clinical Impression: Gangrenous toe Disposition: ADMITTED IP TO THIS HOSP Referrals: Cassius Richardson MD [Primary Care Provider] - 1-2 days Time of Disposition: 12:47
[2021-09-12 12:15] LABS: Basophils % (A) 0 %; Eosinophils # (A) 0.1 k/uL (0-0.7); Eosinophils % (A) 1 %; HCT 43.5 % (39.0-53.0); HGB 14.4 gm/dL (13.0-17.5); Lymphocytes # (A) 1.3 k/uL (1.0-4.8); Lymphocytes % (A) 15 %; MCH 28.5 pg (25.0-35.0); MCV 86.3 fL (80.0-100.0); Monocytes # (A) 0.5 k/uL (0-1.0); Monocytes % (A) 5 %; Neutrophils # (A) 6.9 k/uL (1.3-7.7); Neutrophils % (A) 77 %; Platelet Count 302 k/uL (150-450); RBC 5.04 m/uL (4.30-5.90); RDW 13.8 % (11.5-15.5)
[2021-09-12 12:19] LABS: Partial Thromboplastin Time 30.7 sec (22.0-30.0); Prothrombin Time 10.6 sec (9.0-12.0)
--- NOTE | 2021-09-12 12:42 | XR ---
EXAMINATION TYPE: XR toes RT DATE OF EXAM: 09/12/2021 COMPARISON: Right foot x-ray August 29, 2021 HISTORY: Pain and swelling fifth digit TECHNIQUE: 3 views right toes FINDINGS: Overlying gauze and/or bandage material is present making evaluation slightly suboptimal. S ome flexion and varus positioning distal fourth and fifth toes redemonstrated. Lateral view is subopt imal due to osseous overlap. Focal soft tissue swelling in the fifth toe is redemonstrated. No obviou s interval bony destruction. Joint spaces fairly well preserved. IMPRESSION: No convincing radiographic evidence for acute osteomyelitis in the fifth toe.
[2021-09-12 12:46] LABS: Appearance,Urine Clear (Clear); Bilirubin,Urine Negative (Negative); Blood,Urine Negative (Negative); Color,Urine Light Yellow; Glucose,Urine (UA) Negative (Negative); Ketones,Urine Negative (Negative); Leukocyte Esterase,Urine Negative (Negative); Nitrite,Urine Negative (Negative); PH, Urine 5.5 (5.0-8.0); Protein,Urine Trace (Negative); Specific Gravity,Urine 1.015 (1.001-1.035); Urobilinogen,Urine <2.0 mg/dL (<2.0)
[2021-09-12] MEDS ORDERED: SODIUM CHLORIDE 0.9% 1,000 ML IV ONE (12:48)
--- NOTE | 2021-09-12 13:57 | P.HPIM ---
History of Present Illness H&P Date: 09/12/21 Chief Complaint: Worsening wound infection History of present illness 70 years old male with past medical history of coronary artery disease status post stent, history of stomach cancer status post chemotherapy, history of testicular cancer, diabetes, hypertension, hyperlipidemia comes in with infected ulcer involving the fifth toe for the past 5 weeks. Patient has been f ollowing with centrifugal drier operator Dr. Will at [facility] with no improvement. He has been on antibiotics outpatient that did not clear the infection. Patient sent to the ER by the wound center for evaluation in the ER vitals are stable. Labs reviewed unremarkable CBC, creatinine 1.44 BUN 39 glucose 157 UA negative COVID Negative. X-ray of the toe was negative for acute osteomyelitis. Infectious disease consulted. Antibiotic initiated. ROS Constitutional: Denies chills, Denies fever, Denies lethargy, Denies malaise, Denies poor appetite, Denies weakness, Denies weight loss Eyes: denies decreased vision, denies diplopia, denies discharge, denies pain Ears: deny: decreased hearing Ears, nose, mouth and throat: Denies dental pain, Denies headache, Denies nasal discharge, Denies nose pain Cardiovascular: Denies chest pain, Denies decreased exercise tolerance, Denies edema, Denies high blood pressure, Denies irregular heart beat, Denies palpitations, Denies paroxysmal nocturnal dyspnea, Denies rapid heart beat, Denies shortness of breath Respiratory: Denies congestion, Denies cough, Denies cough with sputum, Denies dyspnea, Denies home oxygen, Denies wheezing Gastrointestinal: Denies abdominal pain, Denies change in bowel habits, Denies coffee ground emesis, Denies early satiety, Denies excessive gas, Denies heartburn, Denies hematemesis, Denies hematochezia, Denies loss of appetite, Denies nausea, Denies vomiting Genitourinary: Denies dysuria, Denies flank pain, Denies kidney stones, Denies menorrhagia, Denies urgency, Denies urinary frequency Musculoskeletal: Denies gait dysfunction, Denies limitation of motion, Denies morning stiffness, Denies muscle cramps Integumentary: Denies rash, Denies wounds, Denies brittle nails, Denies change in hair/nails, Denies darkening of skin Neurological: Denies balance difficulties, Denies change in speech, Denies double vision, Denies gait dysfunction, Denies loss of vision, Denies motor disturbance, Denies numbness, Denies paralysis, Denies paresthesias, Denies seizures Psychiatric: Denies anxiety, Denies depression Endocrine: Denies excessive sweating, Denies excessive thirst, Denies high blood sugars, Denies palpitations Hematologic/Lymphatic: Denies easy bruising, Denies lymphadenopathy Social history Former smoker quit 1 year ago used to smoke 1 pack a day of cigarettes Family history Mother alive, father of prostate cancer 84 brothers no major medical problem to assist with no major medical problem Physical exam - Constitutional General appearance: cooperative, no acute distress, obese - EENT Eyes: anicteric sclerae, PERRLA, normal appearance ENT: hearing grossly normal - Neck Neck: no lymphadenopathy, normal ROM, no other, no rigidity, no stridor, no thyromegaly - Respiratory Respiratory: bilateral: CTA, negative: diminished, dullness, rales, rhonchi - Cardiovascular Rhythm: regular Heart sounds: normal: S1, S2 Abnormal Heart Sounds: no systolic murmur, no diastolic murmur, no rub, no S3 Gallop, no S4 Gallop, no click, no other - Gastrointestinal General gastrointestinal: normal bowel sounds, soft nontender - Integumentary Integumentary: Fifth digit with unstageable ulcer with significant serous sanguinous drainage, with surrounding inflammation involving fourth digit - Neurologic Neurologic: No sensorimotor deficit - Musculoskeletal Musculoskeletal: gait not assessed strength equal bilaterally - Psychiatric Psychiatric: A&O x's 3, appropriate affect Assessment and plan #1Actue diabetic ulcer with surrounding cellulitis involving fourth and fifth digit. Infectious disease consulted continue patient on vancomycin and Zosyn. Continue IV fluids at 75 mL per hour. Wound cultures ordered. Patient may need amputation of the fifth digit. Associate Professor Of Criminal Justice consulted for possible toe amputation. MRI ordered to rule out osteomyelitis #2 type II uncontrolled diabetes, and NPH 40 with breakfast and 25 units with supper. 22 insulin sliding scale hold metformin. #3 coronary artery disease status post stent hold aspirin. Continue pravastatin and losartan 50 twice a day. #4 hypertension continue losartan 50 twice daily #5 glaucoma continue dorzolamide Tibble drops both eyes tw ice a day #6 CODE STATUS full code #7 disposition patient indicates 1-2 inpatient nights for stabilization Past Medical History Past Medical History: Coronary Artery Disease (CAD), Cancer, Chest Pain / Angina, Diabetes Mellitus, Eye Disorder, Hyperlipidemia, Hypertension, Myocardial Infarction ([place]) Additional Past Medical History / Comment(s): 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 Cancerous stomach tumor and Testicular cancer in [id number]. Last Myocardial Infarction Date:: 04/05/16 History of Any Multi-Drug Resistant Organisms: None Reported Past Surgical History: Heart Catheterization With Stent Additional Past Surgical History / Comment(s): Cancerous tumor removed in stomach and had chemo, bilateral cataract removal, sx for testicular cancer "dissected nodes." Past Anesthesia/Blood Transfusion Reactions: No Reported Reaction Date of Last Stent Placement:: 04/05/16 Past Psychological History: No Psychological Hx Reported Past Alcohol Use History: None Reported Additional Past Alcohol Use History / Comment(s): Smoked pipes at age 31, then switched to cigars, 4-5 per day. Quit in 2009. Past Drug Use History: None Reported Additional Drug Use History / Comment(s): pt started smoking a pipe at ag 31 then swithced to cigars. was smoking 4-5 cigars a day -quit 2009 denies any medical marijuana, marijuana, street drug or alcohol use. He lives at home with his . 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 - Past Family History Mother Family Medical History: No Reported History Additional Family Medical History / Comment(s): Mother is alive at age 88 with no major medical problems. Father Family Medical History: Cancer Additional Family Medical History / Comment(s): Father at age 84 from prostate cancer. Brother(s) Family Medical History: Cancer Additional Family Medical History / Comment(s): Patient has 4 brothers with no major medical problems. Sister(s) Family Medical History: Cancer Additional Family Medical History / Comment(s): Patient has 2 sisters with no major medical problems. Daughter(s) Additional Family Medical History / Comment(s): Patient has 2 brothers with no major medical problems. Medications and Allergies Home Medications Medication Instructions Recorded Confirmed Type metFORMIN HCL [Glucophage] 1,000 mg PO DAILY 03/02/18 09/12/21 History Pravastatin Sodium [Pravachol] 40 mg PO HS 12/28/18 09/12/21 History metFORMIN HCL [Glucophage] 500 mg PO HS 12/31/18 09/12/21 History Aspirin 81 mg PO BID 09/12/21 09/12/21 History Cholecalciferol [Vitamin D3 (25 25 mcg PO DAILY 09/12/21 09/12/21 History Mcg = 1000 Iu)] Dorzolamide-Timol 2.23%/0.68% 1 drop BOTH EYES BID 09/12/21 09/12/21 History [Cosopt] Doxycycline Hyclate 100 mg PO BID 09/12/21 09/12/21 History Insulin NPH Hum/Reg Insulin Hm 25 unit SQ AC-SUPPER 09/12/21 09/12/21 History [NovoLIN 70-30 100 UNIT/ML VIAL] Insulin NPH Hum/Reg Insulin Hm 40 unit SQ AC-BRKFST 09/12/21 09/12/21 History [NovoLIN 70-30 100 UNIT/ML VIAL] Latanoprost [Xalatan 0.005%] 1 drop BOTH EYES HS 09/12/21 09/12/21 History Losartan Potassium 50 mg PO BID 09/12/21 09/12/21 History Ubidecarenone [Co Q-10] 100 mg PO DAILY 09/12/21 09/12/21 History Allergies Allergy/AdvReac Type Severity Reaction Status Date / Time No Known Allergies Allergy Verified 09/12/21 11:28 Physical Exam Vitals: Vital Signs Temp Pulse Resp BP Pulse Ox 09/12/21 11:59 67 18 138/79 99 09/12/21 10:44 97.4 F L 69 20 142/84 99 Intake and Output 09/11/21 09/12/21 09/12/21 22:59 06:59 14:59 Other: Weight 105.233 kg Results CBC & Chem 7: 09/12/21 11:20 09/12/21 11:20 Labs: Abnormal Lab Results - Last 24 Hours (Table) 09/12/21 09/12/21 09/12/21 Range/Units 11:20 11:20 11:20 APTT 30.7 H (22.0-30.0) sec Potassium 5.2 H (3.5-5.1) mmol/L BUN 39 H (9-20) mg/dL Creatinine 1.44 H (0.66-1.25) mg/dL Glucose 157 H (74-99) mg/dL Urine Protein Trace H (Negative)
[2021-09-12 17:56] LABS: Glucose,Whole Blood 245 mg/dL (75-99)
[2021-09-12] MEDS: INSULN ASP PRT/INSULIN ASPART 100 UNIT/ML 10 ML VIAL SQ SCH (18:06)
[2021-09-12] MEDS ORDERED: PIPERACILLIN-TAZOBACTAM 3.375 GM in SODIUM CHLORIDE 0.9% 100 ML IVPB SCH (20:00)
[2021-09-12 20:04] LABS: Glucose,Whole Blood 266 mg/dL (75-99)
[2021-09-12] MEDS: LATANOPROST 0.005% OPHTH DROPS 2.5 ML BTL BOTH EYES SCH (21:42)
[2021-09-12] MEDS: PRAVASTATIN SODIUM 40 MG TAB PO SCH (21:42)
[2021-09-12] MEDS: LOSARTAN 50 MG TAB PO SCH (21:42)
[2021-09-12] MEDS: DORZOLAMIDE-TIMOLOL 2.23%/0.68 10ML BTL BOTH EYES SCH (21:43)
--- NOTE | 2021-09-12 22:51 | P.CONS ---
History of Present Illness - Reason for Consult Consult date: 09/12/21 Right diabetic foot infection Requesting physician: Petar Gutierrez - Chief Complaint Right fifth toe nonhealing wound x 3weeks - History of Present Illness History of Present Illness : Patient is a 70-year male started having a problem with right fifth toe with a wound for the patient has been evaluated and treated by his primary care physician for about 3 weeks subsequently patient has been referred to [facility] wound care center with the patient is seeing Dr. Will for the last week or so patient did have debridement of the wound and has been treated with multiple courses of antibiotic however the patient was noticed to have significant worsening of his right fifth toe with significant amount of slough tissue foul-smelling drainage for the patient being sent to the ER for worsening wound infection and possible amputation patient do have underlying history of diabetes and diabetic neuropathy with no sensation has denies significant pain to his right fifth toe patient did have a foul-smelling drainage moderate amount patient denies having any fever or any chills on arrival to the ER the patient was afebrile patient did have normal white count sed rate was elevated creatinine was 1.44 liver exams are normal urine is negative suh PCR was negative patient did have x-ray of the toe no convincing evidence of acute osteomyelitis of the fifth toe patient was started on Zosyn and vancomycin has been admitted to hospital infectious disease was consulted for further management of antibiotic therapy patient apparently is scheduled to undergo amputation of his right fifth toe on Tuesday, September 14, 2021 blood and local cultures have been obtained which are currently pending Review of system: CONSTITUTIONAL: Positive for weakness denies high-grade fever. EYES: No complaint. ENT: No complaint. RESPIRATORY: No complaint. CARDIOVASCULAR: No complaint. GENITOURINARY: No complaint. GASTROINTESTINAL: No complaint. MUSCULOSKELETAL: As per history of present illness. INTEGUMENTARY : No complaint. PSYCHOLOGIC: No complaint. ENDOCRINE: No complaint. NEUROLOGIC: No complaint. Past medical history : Reviewed, documented below Past surgical history : Reviewed, documented below Social history: Reviewed, documented below Medications: Reviewed, as documented below EXAMINATION: Vital sigans= Reviewed and documented below GENERAL DESCRIPTION: Elderly male lying in bed, no distress. No tachypnea or accessory muscle of respiration use. HEENT: Shows Pallor , no scleral icterus. Oral mucous membrane is dry. NECK: Trachea central, no thyromegaly. LUNGS: Unlabored breathing. Clear to auscultation anteriorly. No wheeze or crackle. HEART: S1, S2, regular rate and rhythm. ABDOMEN: Soft, no tenderness , guarding or rigidity EXTREMITIES: No edema feet, right fifth toe significant wound with significant amount of slough tissue some maceration at the base of the wound and foul- smelling drainage SKIN: No rash, no masses palpable. NEUROLOGICAL: The patient is awake, alert, oriented x3, mood and affect normal. LABS AND RADIOLOGY: Reviewed results see below Assessment : Patient with right diabetic foot infection with significant invol vement of his right fifth toe that has failed outpatient local treatment as well as antibiotic therapy now with evidence of significant destruction and the likelihood of saving the toe are minimal patient has already agreed to amputation of his right fifth toe which is currently scheduled for Wednesday, 14 September 2021 we will need to cover for the polymicrobial earnest usually associated with his infection. 2patient with renal insufficiency and high risk of nephrotoxicity Plan: 1-vancomycin pharmacy to dose target trough of 15 while watching kidney function and vancomycin trough closely 2-switch Zosyn to Unasyn to decrease risk of nephrotoxicity 3-dry protective dressing to the right fifth toe wound area. 4no need for MRI as the plan is for the possible amputation anyway and would not add anything to the diagnosis or management of this patient, and the patient is reluctant to under go MRI also We will follow on clinical condition and cultures to further adjust medication if needed Thank you for this consultation we will follow the patient along with you Past Medical History Past Medical History: Coronary Artery Disease (CAD), Cancer, Chest Pain / Angina, Diabetes Mellitus, Eye Disorder, Hyperlipidemia, Hypertension, Myocardial Infarction ([place]), Osteoarthritis ([place]), Pneumonia, Renal Disease, Syncope, Vascular Disorder Additional Past Medical History / Comment(s): IDDM type II, neuropathy bilateral feet, R testicular cancer with surgery/chemo, pneumonia with sepsis, CKD stage III, R eye glaucoma, PVD, past R lower extremity cellulitis, past R great toe wound. Last Myocardial Infarction Date:: 04/05/16 History of Any Multi-Drug Resistant Organisms: None Reported Past Surgical History: Heart Catheterization With Stent Additional Past Surgical History / Comment(s): PCI with stent 2015, [facility], R testicular cancer with surgery/node dissection, bilateral cataract removals. Past Anesthesia/Blood Transfusion Reactions: No Reported Reaction Date of Last Stent Placement:: 04/05/16 Smoking Status: Former smoker - Past Family History Mother Family Medical History: No Reported History Additional Family Medical History / Comment(s): Mother is . Father Family Medical History: Cancer Additional Family Medical History / Comment(s): Father at age 84 from [place] cancer. Brother(s) Family Medical History: Cancer Additional Family Medical History / Comment(s): Patient has 4 brothers with no major medical problems. Sister(s) Family Medical History: Cancer Additional Family Medical History / Comment(s): Patient has 2 sisters with no major medical problems. Daughter(s) Additional Family Medical History / Comment(s): Patient has 2 brothers with no major medical problems. Medications and Allergies Home Medications Medication Instructions Recorded Confirmed Type metFORMIN HCL [Glucophage] 1,000 mg PO DAILY 03/02/18 09/12/21 History Pravastatin Sodium [Pravachol] 40 mg PO HS 12/28/18 09/12/21 History metFORMIN HCL [Glucophage] 500 mg PO HS 12/31/18 09/12/21 History Aspirin 81 mg PO BID 09/12/21 09/12/21 History Cholecalciferol [Vitamin D3 (25 25 mcg PO DAILY 09/12/21 09/12/21 History Mcg = 1000 Iu)] Dorzolamide-Timol 2.23%/0.68% 1 drop BOTH EYES BID 09/12/21 09/12/21 History [Cosopt] Doxycycline Hyclate 100 mg PO BID 09/12/21 09/12/21 History Insulin NPH Hum/Reg Insulin Hm 25 unit SQ AC-SUPPER 09/12/21 09/12/21 History [NovoLIN 70-30 100 UNIT/ML VIAL] Insulin NPH Hum/Reg Insulin Hm 40 unit SQ AC-BRKFST 09/12/21 09/12/21 History [NovoLIN 70-30 100 UNIT/ML VIAL] Latanoprost [Xalatan 0.005%] 1 drop BOTH EYES HS 09/12/21 09/12/21 History Losartan Potassium 50 mg PO BID 09/12/21 09/12/21 History Ubidecarenone [Co Q-10] 100 mg PO DAILY 09/12/21 09/12/21 History Allergies Allergy/AdvReac Type Severity Reaction Status Date / Time No Known Allergies Allergy Verified 09/12/21 11:28 Physical Exam Vitals: Vital Signs Temp Pulse Resp BP Pulse Ox 09/12/21 11:59 67 18 138/79 99 09/12/21 10:44 97.4 F L 69 20 142/84 99 Intake and Output 09/12/21 09/12/21 09/12/21 06:59 14:59 22:59 Other: Weight 105.233 kg 105.233 kg Results CBC & Chem 7: 09/12/21 11:20 09/12/21 11:20 Labs: Abnormal Lab Results - Last 24 Hours (Table) 09/12/21 09/12/21 09/12/21 Range/Units 11:20 11:20 11:20 ESR (0-15) mm/hr APTT 30.7 H (22.0-30.0) sec Potassium 5.2 H (3.5-5.1) mmol/L BUN 39 H (9-20) mg/dL Creatinine 1.44 H (0.66-1.25) mg/dL Glucose 157 H (74-99) mg/dL C-Reactive Protein (<1.0) mg/dL Urine Protein Trace H (Negative) 09/12/21 09/12/21 Range/Units 11:20 11:20 ESR 62 H (0-15) mm/hr APTT (22.0-30.0) sec Potassium (3.5-5.1) mmol/L BUN (9-20) mg/dL Creatinine (0.66-1.25) mg/dL Glucose (74-99) mg/dL C-Reactive Protein 1.6 H (<1.0) mg/dL Urine Protein (Negative)
[2021-09-13] MEDS: AMPICILLIN-SULBACTAM 3 GM in SODIUM CHLORIDE 0.9% 100 ML IVPB SCH ×4 (00:54→17:53)
[2021-09-13] MEDS: VANCOMYCIN 1,750 MG in SODIUM CHLORIDE 0.9% 500 ML 500 ML IVPB SCH ×2 (06:29→20:32)
[2021-09-13 07:56] LABS: Glucose,Whole Blood 113 mg/dL (75-99)
[2021-09-13] MEDS: LOSARTAN 50 MG TAB PO SCH ×2 (08:11→20:31)
[2021-09-13] MEDS: INSULN ASP PRT/INSULIN ASPART 100 UNIT/ML 10 ML VIAL SQ SCH ×2 (08:12→17:53)
[2021-09-13] MEDS ORDERED: NON FORMULARY DRUG (Ubidecarenone [Co Q-10] 100 MG Capsule) PO SCH (09:00)
[2021-09-13] MEDS: DORZOLAMIDE-TIMOLOL 2.23%/0.68 10ML BTL BOTH EYES SCH ×2 (09:55→20:36)
[2021-09-13 12:22] LABS: Glucose,Whole Blood 124 mg/dL (75-99)
[2021-09-13 17:37] LABS: Glucose,Whole Blood 165 mg/dL (75-99)
--- NOTE | 2021-09-13 17:53 | P.PN ---
Subjective Progress Note Date: 09/13/21 History of present illness 70 years old male with past medical history of coronary artery disease status p ost stent, history of stomach cancer status post chemotherapy, history of testicular cancer, diabetes, hypertension, hyperlipidemia comes in with infected ulcer involving the fifth toe for the past 5 weeks. Patient has been following with athlete marketing agent Dr. Will at [facility] with no improvement. He has been on antibiotics outpatient that did not clear the infection. Patient sent to the ER by the wound center for evaluation in the ER vitals are stable. Labs reviewed unremarkable CBC, creatinine 1.44 BUN 39 glucose 157 UA negative COVID Negative. X-ray of the toe was negative for acute osteomyelitis. Infectious disease consulted. Antibiotic initiated. 09/13 patient examined bedside. Denies any chest pain shortness of breath. Patient vitals reviewed, is afebrile bradycardic at 59 respiratory rate 14 blood pressure 160/76 creatinine improved 1.35 and urinalysis is negative COVID negative ROS Constitutional: Denies chills, Denies fever, Denies lethargy, Denies malaise, Denies poor appetite, Denies weakness, Denies weight loss Eyes: denies decreased vision, denies diplopia, denies discharge, denies pain Ears: deny: decreased hearing Ears, nose, mouth and throat: Denies dental pain, Denies headache, Denies nasal discharge, Denies nose pain Cardiovascular: Denies chest pain, Denies decreased exercise tolerance, Denies edema, Denies high blood pressure, Denies irregular heart beat, Denies palpitations, Denies paroxysmal nocturnal dyspnea, Denies rapid heart beat, Denies shortness of breath Respiratory: Denies congestion, Denies cough, Denies cough with sputum, Denies dyspnea, Denies home oxygen, Denies wheezing Gastrointestinal: Denies abdominal pain, Denies change in bowel habits, Denies coffee ground emesis, Denies early satiety, Denies excessive gas, Denies heartburn, Denies hematemesis, Denies hematochezia, Denies loss of appetite, Denies nausea, Denies vomiting Genitourinary: Denies dysuria, Denies flank pain, Denies kidney stones, Denies menorrhagia, Denies urgency, Denies urinary frequency Musculoskeletal: Denies gait dysfunction, Denies limitation of motion, Denies morning stiffness, Denies muscle cramps Integumentary: Drainage involving the right digit fifth Neurological: Denies balance difficulties, Denies change in speech, Denies double vision, Denies gait dysfunction, Denies loss of vision, Denies motor disturbance, Denies numbness, Denies paralysis, Denies paresthesias, Denies seizures Physical exam - Constitutional General appearance: cooperative, no acute distress, obese - EENT Eyes: anicteric sclerae, PERRLA, normal appearance ENT: hearing grossly normal - Neck Neck: no lymphadenopathy, normal ROM, no other, no rigidity, no stridor, no thyromegaly - Respiratory Respiratory: bilateral: CTA, negative: diminished, dullness, rales, rhonchi - Cardiovascular Rhythm: regular Heart sounds: normal: S1, S2 Abnormal Heart Sounds: no systolic murmur, no diastolic murmur, no rub, no S3 Gallop, no S4 Gallop, no click, no other - Gastrointestinal General gastrointestinal: normal bowel sounds, soft nontender - Integumentary Integumentary: Fifth digit with unstageable ulcer with significant serous sanguinous drainage, with surrounding inflammation involving fourth digit on the right - Neurologic Neurologic: No sensorimotor deficit - Musculoskeletal Musculoskeletal: gait not assessed strength equal bilaterally - Psychiatric Psychiatric: A&O x's 3, appropriate affect Assessment and plan #1Actue diabetic ulcer with surrounding cellulitis involving fourth and fifth digit. Infectious disease consulted continue patient on vancomycin and Unasyn Continue IV fluids at 75 mL per hour. Wound cultures ordered. Patient may need amputation of the fifth digit. Subwarehouse Supervisor consulted for possible toe amputation tomorrow. #2 type II uncontrolled diabetes, and NPH 40 with breakfast and 25 units with supper. 22 insulin sliding scale hold metformin. #3 coronary artery disease status post stent hold aspirin. Continue pravastatin and losartan 50 twice a day. #4 hypertension continue losartan 50 twice daily #5 glaucoma continue dorzolamide Tibble drops both eyes tw ice a day #6 CODE STATUS full code #7 disposition plan for possible toe amputation tomorrow Objective - Vital Signs Vital signs: Vital Signs Temp 97.9 F 09/13/21 12:56 Pulse 59 L 09/13/21 12:56 Resp 14 09/13/21 12:56 BP 160/76 09/13/21 12:56 Pulse Ox 96 09/13/21 12:56 Intake & Output 09/12/21 09/13/21 09/13/21 18:59 06:59 18:59 Weight 105.233 kg Other: Voiding Method Toilet # Voids 3 - Labs CBC & Chem 7: 09/12/21 11:20 09/13/21 06:30 Labs: Abnormal Lab Results - Last 24 Hours (Table) 09/12/21 09/12/21 09/13/21 Range/Units 17:54 20:03 06:30 Creatinine 1.35 H (0.66-1.25) mg/dL POC Glucose (mg/dL) 245 H 266 H (75-99) mg/dL 09/13/21 09/13/21 09/13/21 Range/Units 07:55 12:20 17:36 Creatinine (0.66-1.25) mg/dL POC Glucose (mg/dL) 113 H 124 H 165 H (75-99) mg/dL Microbiology - Last 24 Hours (Table) 09/12/21 11:20 Blood Culture - Preliminary Blood No Growth after 24 hours 09/12/21 11:20 Blood Culture - Preliminary Blood No Growth after 24 hours 09/12/21 15:37 Gram Stain - Preliminary Toe - Right Fifth Wound Culture - Preliminary 09/12/21 15:37 Anaerobic Culture - Preliminary Toe - Right Fifth
[2021-09-13 20:02] LABS: Glucose,Whole Blood 170 mg/dL (75-99)
[2021-09-13] MEDS: PRAVASTATIN SODIUM 40 MG TAB PO SCH (20:31)
[2021-09-13] MEDS: LATANOPROST 0.005% OPHTH DROPS 2.5 ML BTL BOTH EYES SCH (20:37)
--- NOTE | 2021-09-13 23:07 | P.PN ---
Subjective Progress Note Date: 09/13/21 Principal diagnosis: Right fifth toe diabetic foot infection Patient is 70-year-old male admitted to the hospital with a nonhealing wound to the right fifth toe failing outpatient local care and antibiotics. On today's evaluation that is 09/13/2021, the patient denies having any fever or chills, denies pain to the right fifth toe, the patient denies having any chest pain shortness of breath or cough no nausea no vomiting no abdominal pain no Objective - Vital Signs Vital signs: Vital Signs Temp 97.7 F 09/13/21 20:00 Pulse 65 09/13/21 20:00 Resp 18 09/13/21 20:00 BP 176/77 09/13/21 20:00 Pulse Ox 98 09/13/21 20:00 Intake & Output 09/13/21 09/13/21 09/14/21 06:59 18:59 06:59 Other: Voiding Method Toilet # Voids 3 4 - Exam General description is an elderly male lying in bed in no distress. Respiratory system:Unlabored breathing, decreased intensity in breath sounds. No wheeze. Heart S1, S2. Regular rate and rhythm. Abdomen soft, no tenderness. Right foot wound is currently dressed no drainage of the dressing - Labs CBC & Chem 7: 09/12/21 11:20 09/13/21 06:30 Labs: Abnormal Lab Results - Last 24 Hours (Table) 09/13/21 09/13/21 09/13/21 Range/Units 06:30 07:55 12:20 Creatinine 1.35 H (0.66-1.25) mg/dL POC Glucose (mg/dL) 113 H 124 H (75-99) mg/dL 09/13/21 09/13/21 Range/Units 17:36 20:01 Creatinine (0.66-1.25) mg/dL POC Glucose (mg/dL) 165 H 170 H (75-99) mg/dL Microbiology - Last 24 Hours (Table) 09/12/21 11:20 Blood Culture - Preliminary Blood No Growth after 24 hours 09/12/21 11:20 Blood Culture - Preliminary Blood No Growth after 24 hours 09/12/21 15:37 Gram Stain - Preliminary Toe - Right Fifth Wound Culture - Preliminary 09/12/21 15:37 Anaerobic Culture - Preliminary Toe - Right Fifth Assessment and Plan (1) Diabetic infection of right foot Current Visit: Yes Status: Acute Code(s): E11.628 - TYPE 2 DIABETES MELLITUS WITH OTHER SKIN COMPLICATIONS; L08.9 - LOCAL INFECTION OF THE SKIN AND SUBCUTANEOUS TISSUE, UNSP SNOMED Code(s): 59223090 Plan: 1patient with right diabetic foot infection involving the right fifth toe failing outpatient local care and antibiotic therapy patient is covered with Unasyn and vancomycin to continue with the present for possible amputation of the right fifth toe which has been scheduled for tomorrow morning Time with Patient: Less than 30
[2021-09-14] MEDS: AMPICILLIN-SULBACTAM 3 GM in SODIUM CHLORIDE 0.9% 100 ML IVPB SCH ×5 (00:43→23:58)
[2021-09-14 07:41] LABS: Glucose,Whole Blood 110 mg/dL (75-99)
--- NOTE | 2021-09-14 09:01 | P.GSHP ---
History of Present Illness H&P Date: 09/14/21 Chief Complaint: Infected gangrenous toe right fifth 70-year-old patient known to me through treatment at the wound care center. Patient has an ulcer on his right fifth toe which did not respond to outpatient antibiotics. The patient had a tissue culture performed last week which proved to be polymicrobial with aerobic and anaerobic activity. The wound has progressed to the point where amputation is warranted to prevent further loss of tissue and potential loss of foot leg limb or life. Patient was seen in the wound care center on Wednesday and as the wound has degraded we sent the patient to the emergency room for evaluation and admission for IV antibiotics prior to amputation. Patient was seen today at bedside prior to surgery resting comfortably and receiving vancomycin as well as Unasyn IV antibiotics. - Constitutional Constitutional: Denies chills, Denies fever - EENT Eyes: bilateral as per HPI - Cardiovascular Cardiovascular: Reports as per HPI, Denies chest pain, Denies shortness of breath - Respiratory Respiratory: Denies cough, Denies 7 - Gastrointestinal Gastrointestinal: Reports as per HPI, Denies abdominal pain, Denies diarrhea, Denies nausea, Denies vomiting - Musculoskeletal Musculoskeletal: Denies myalgias - Integumentary Integumentary: Reports as per HPI, Denies pruritus, Denies rash - Neurological Neurological: Reports as per HPI, Denies numbness, Denies weakness - Psychiatric Psychiatric: Reports as per HPI, Denies anxiety, Denies depression - Endocrine Endocrine: Reports as per HPI, Denies fatigue, Denies weight change - Hematologic/Lymphatic Hematologic/Lymphatic: Reports as per HPI - Allergic/Immunologic Allergic/Immunologic: Reports as per HPI Past Medical History Past Medical History: Coronary Artery Disease (CAD), Cancer, Chest Pain / Angina, Diabetes Mellitus, Eye Disorder, Hyperlipidemia, Hypertension, Myoca rdial Infarction (VT), Osteoarthritis (OA), Pneumonia, Renal Disease, Syncope, Vascular Disorder Additional Past Medical History / Comment(s): IDDM type II, neuropathy bilateral feet, R testicular cancer with surgery/chemo, pneumonia with sepsis, CKD stage III, R eye glaucoma, PVD, past R lower extremity cellulitis, past R great toe wound. Last Myocardial Infarction Date:: 04/05/16 History of Any Multi-Drug Resistant Organisms: None Reported Past Surgical History: Heart Catheterization With Stent Additional Past Surgical History / Comment(s): PCI with stent 2016, mitral valve repair at [facility], [place], R testicular cancer with surgery/node dissection, bilateral cataract removals. Past Anesthesia/Blood Transfusion Reactions: No Reported Reaction Date of Last Stent Placement:: 04/05/16 Smoking Status: Former smoker - Past Family History Mother Family Medical History: No Reported History Additional Family Medical History / Comment(s): Mother is . Father Family Medical History: Cancer Additional Family Medical History / Comment(s): Father at age 84 from prostate cancer. Brother(s) Family Medical History: Cancer Additional Family Medical History / Comment(s): Patient has 4 brothers with no major medical problems. Sister(s) Family Medical History: Cancer Additional Family Medical History / Comment(s): Patient has 2 sisters with no major medical problems. Daughter(s) Additional Family Medical History / Comment(s): Patient has 2 brothers with no major medical problems. Medications and Allergies Home Medications Medication Instructions Recorded Confirmed Type metFORMIN HCL [Glucophage] 1,000 mg PO DAILY 03/02/18 09/12/21 History Pravastatin Sodium [Pravachol] 40 mg PO HS 12/28/18 09/12/21 History metFORMIN HCL [Glucophage] 500 mg PO HS 12/31/18 09/12/21 History Aspirin 81 mg PO BID 09/12/21 09/12/21 History Cholecalciferol [Vitamin D3 (25 25 mcg PO DAILY 09/12/21 09/12/21 History Mcg = 1000 Iu)] Dorzolamide-Timol 2.23%/0.68% 1 drop BOTH EYES BID 09/12/21 09/12/21 History [Cosopt] Doxycycline Hyclate 100 mg PO BID 09/12/21 09/12/21 History Insulin NPH Hum/Reg Insulin Hm 25 unit SQ AC-SUPPER 09/12/21 09/12/21 History [NovoLIN 70-30 100 UNIT/ML VIAL] Insulin NPH Hum/Reg Insulin Hm 40 unit SQ AC-BRKFST 09/12/21 09/12/21 History [NovoLIN 70-30 100 UNIT/ML VIAL] Latanoprost [Xalatan 0.005%] 1 drop BOTH EYES HS 09/12/21 09/12/21 History Losartan Potassium 50 mg PO BID 09/12/21 09/12/21 History Ubidecarenone [Co Q-10] 100 mg PO DAILY 09/12/21 09/12/21 History Allergies Allergy/AdvReac Type Severity Reaction Status Date / Time No Known Allergies Allergy Verified 09/12/21 11:28 Surgical - Exam Vital Signs Temp Pulse Resp BP Pulse Ox 97.4 F L 69 20 142/84 99 09/12/21 10:44 09/12/21 10:44 09/12/21 10:44 09/12/21 10:44 09/12/21 10:44 - Cardiovascular Patient has palpable but diminished pedal pulses review of arterial Dopplers show adequate flow for the above procedure. Clinically with debridement patient has had profuse bleeding from the fifth toe when debrided. - Integumentary Patient has a full-thickness ulceration of the right fifth digit with pregangrenous changes distal aspect of the digit secondary to extensive tissue loss. - Neurologic Patient has decreased epicritic and pallesthetic sensations bilateral lower extremity - Musculoskeletal Range of motion of the ankle joint subtalar joint and midtarsal joint and metatarsophalangeal joints normal and symmetrical bilateral all inverters everters plantar flexed dorsiflexors normal and symmetrical bilateral Results - Labs 09/12/21 11:20 09/14/21 07:41 Abnormal Lab Results - Last 24 Hours (Table) 09/13/21 09/13/21 09/13/21 Range/Units 12:20 17:36 20:01 Creatinine (0.66-1.25) mg/dL POC Glucose (mg/dL) 124 H 165 H 170 H (75-99) mg/dL 09/14/21 09/14/21 Range/Units 07:40 07:41 Creatinine 1.34 H (0.66-1.25) mg/dL POC Glucose (mg/dL) 110 H (75-99) mg/dL Microbiology - Last 24 Hours (Table) 09/12/21 11:20 Blood Culture - Preliminary Blood No Growth after 24 hours 09/12/21 11:20 Blood Culture - Preliminary Blood No Growth after 24 hours 09/12/21 15:37 Gram Stain - Preliminary Toe - Right Fifth Wound Culture - Preliminary Diabetes panel 09/14/21 Range/Units 07:41 Creatinine 1.34 H (0.66-1.25) mg/dL Pituitary panel 09/14/21 Range/Units 07:41 Creatinine 1.34 H (0.66-1.25) mg/dL Adrenal panel 09/14/21 Range/Units 07:41 Creatinine 1.34 H (0.66-1.25) mg/dL Assessment and Plan Assessment: Infected gangrenous fifth digit right foot Plan: Today we examined the patient prior to surgery and we discussed with patient findings as well as treatment plan. We'll proceed with the planned amputation of the right fifth digit we discussed the patient's sense the infection is present that the wound will be left open as there is a anaerobic process. The wound may require surgical closure at a later date or may heal secondarily. We discussed with patient complications prognosis risk expectations of surgery patient would like to proceed with surgery and will proceed with plan. Time with Patient: Less than 30
[2021-09-14] MEDS: INSULN ASP PRT/INSULIN ASPART 100 UNIT/ML 10 ML VIAL SQ SCH ×2 (09:34→17:52)
[2021-09-14] MEDS ORDERED: IV FLUID CONTINUATION 1,000 ML IV ONE (11:07)
[2021-09-14] MEDS ORDERED: MIDAZOLAM 2 MG/2 ML VIAL ONE (11:07)
[2021-09-14] MEDS ORDERED: PROPOFOL 10 MG/ML 20 ML VIAL IV ONE (11:07)
[2021-09-14] MEDS ORDERED: LIDOCAINE 2% INJ 20 MG/ML SQ ONE (11:22)
[2021-09-14] MEDS ORDERED: BACITRACIN ZINC 500 UNIT/GM OINT 28.4 GM TUBE TOPICAL ONE (11:43)
--- NOTE | 2021-09-14 12:16 | P.OP ---
Date of Procedure: 09/14/21 Preoperative Diagnosis: Subjective gangrene right fifth digit Postoperative Diagnosis: Same Procedure(s) Performed: Amputation right fifth digit Anesthesia: local Surgeon: Jasbir Will Pathology: none sent Condition: stable Disposition: floor Indications for Procedure: Infected gangrenous toe right foot Operative Findings: Consistent with clinical findings Description of Procedure: Patient was brought to the OR from the floor after review of history and physical and been nothing by mouth since previous midnight and consent was signed and patient was aware of procedure complications prognosis and wrists. She was brought to the OR and the patient was given sedation the right ankle was wrapped with copious amounts web roll and an ankle tourniquet was applied. The right foot was then prepped and draped in the usual aseptic manner. Attention w as then directed to the right foot where using a total of 10 mL of 2% Xylocaine plain the fifth metatarsal was blocked proximally. The fifth digit. The right foot was then exsanguinated with use of a Esmarch elevation for 3 minutes after which time the ankle pneumatic tourniquet was inflated 250 mmHg. Attention was then directed to the fifth digit where utilizing a 10 blade and a 15 blade the f ifth digit was amputated circumferentially about the distal phalanx just distal to the metatarsophalangeal joint. The fifth digit was disarticulated and retained for pathological evaluation at the metatarsophalangeal joint. All necrotic tissue was removed. The pneumatic tourniquet was then deflated and adequate vascular return was noted to all areas of the right foot. The right foot was then copiously lavaged with sterile saline and inspected for any remaining necrotic tissue. The remaining tissue was vital with profuse and adequate bleeding observed. A tissue culture was then taken to ascertain that the remaining tissue was clear of any pathologic bacteria. Using 3-0 Vicryl simper up to sutures the superficial deep fascial planes were reapproximated. Upon doing so the skin edges had to be remodeled to provide a good cosmetic and skin to skin closure. The skin edges were then loosely reapproximated with 3 tierra in the wound continued to have areas of drainage to allow for the area to bleed to prevent hematoma as well as to prevent any anaerobic activity. The wound was then dressed in a mildly compressive manner utilizing bacitracin Adaptic 4 x 4's ADP pad Enrrique as well as Kerlix. An Ruiz wrap was applied loosely over the Kerlix. Patient was brought to the recovery room from the OR having tolerated procedure and anesthesia well was monitored then brought back to the floor for further treatment.
[2021-09-14 12:26] LABS: Glucose,Whole Blood 104 mg/dL (75-99)
[2021-09-14] MEDS: LOSARTAN 50 MG TAB PO SCH ×2 (13:06→20:59)
[2021-09-14] MEDS: VANCOMYCIN 1,750 MG in SODIUM CHLORIDE 0.9% 500 ML 500 ML IVPB SCH (14:17)
--- NOTE | 2021-09-14 16:09 | P.PN ---
Subjective Progress Note Date: 09/14/21 History of present illness 70 years old male with past medical history of coronary artery disease status p ost stent, history of stomach cancer status post chemotherapy, history of testicular cancer, diabetes, hypertension, hyperlipidemia comes in with infected ulcer involving the fifth toe for the past 5 weeks. Patient has been following with head turbine operator Dr. Chery at [facility] with no improvement. He has been on antibiotics outpatient that did not clear the infection. Patient sent to the ER by the wound center for evaluation in the ER vitals are stable. Labs reviewed unremarkable CBC, creatinine 1.44 BUN 39 glucose 157 UA negative COVID Negative. X-ray of the toe was negative for acute osteomyelitis. Infectious disease consulted. Antibiotic initiated. 09/13 patient examined bedside. Denies any chest pain shortness of breath. Patient vitals reviewed, is afebrile bradycardic at 59 respiratory rate 14 blood pressure 160/76 creatinine improved 1.35 and urinalysis is negative COVID negative 09/14 patient examined bedside. Patient had amputation right fifth digit on 09/[address] Chery. Patient's pain isundercontrol.Patient denies any headache, chills, fever, chest pain or shortness of breath. He slept well overnight denies any GI discomfort patient labs are reviewed are stable. no recent labs 7. We'll order CBC and CMP for tomorrow wound cultures are pending ROS Constitutional: Denies chills, Denies fever, Denies lethargy, Denies malaise, Denies poor appetite, Denies weakness, Denies weight loss Eyes: denies decreased vision, denies diplopia, denies discharge, denies pain Ears: deny: decreased hearing Ears, nose, mouth and throat: Denies dental pain, Denies headache, Denies nasal discharge, Denies nose pain Cardiovascular: Denies chest pain, Denies decreased exercise tolerance, Denies edema, Denies high blood pressure, Denies irregular heart beat, Denies palpitations, Denies paroxysmal nocturnal dyspnea, Denies rapid heart beat, Denies shortness of breath Respiratory: Denies congestion, Denies cough, Denies cough with sputum, Denies dyspnea, Denies home oxygen, Denies wheezing Gastrointestinal: Denies abdominal pain, Denies change in bowel habits, Denies coffee ground emesis, Denies early satiety, Denies excessive gas, Denies heartburn, Denies hematemesis, Denies hematochezia, Denies loss of appetite, Denies nausea, Denies vomiting Genitourinary: Denies dysuria, Denies flank pain, Denies kidney stones, Denies menorrhagia, Denies urgency, Denies urinary frequency Musculoskeletal: Denies gait dysfunction, Denies limitation of motion, Denies morning stiffness, Denies muscle cramps Integumentary: Drainage involving the right digit fifth Neurological: Denies balance difficulties, Denies change in speech, Denies double vision, Denies gait dysfunction, Denies loss of vision, Denies motor disturbance, Denies numbness, Denies paralysis, Denies paresthesias, Denies seizures Physical exam - Constitutional General appearance: cooperative, no acute distress, obese - EENT Eyes: anicteric sclerae, PERRLA, normal appearance ENT: hearing grossly normal - Neck Neck: no lymphadenopathy, normal ROM, no other, no rigidity, no stridor, no thyromegaly - Respiratory Respiratory: bilateral: CTA, negative: diminished, dullness, rales, rhonchi - Cardiovascular Rhythm: regular Heart sounds: normal: S1, S2 Abnormal Heart Sounds: no systolic murmur, no diastolic murmur, no rub, no S3 Gallop, no S4 Gallop, no click, no other - Gastrointestinal General gastrointestinal: normal bowel sounds, soft nontender - Integumentary Integumentary: the right foot is dressed with kerlix and eron wraps and remian in boot, pulse can not be palpated - Neurologic Neurologic: No sensorimotor deficit - Musculoskeletal Musculoskeletal: gait not assessed strength equal bilaterallyThe right foot in a boot - Psychiatric Psychiatric: A&O x's 3, appropriate affect Assessment and plan #1Actue diabetic ulcer with surrounding cellulitis involving fourth and fifth digit. Infectious disease consulted continue patient on vancomycin and Unasyn Continue IV fluids at 75 mL per hour. Wound cultures ordered.It is. The duration of 50 shift of the right on 09/14. #2 type II uncontrolled diabetes, and NPH 40 with breakfast and 25 units with supper. 22 insulin sliding scale hold metformin. #3 coronary artery disease status post stent hold aspirin. Continue pravas tatin and losartan 50 twice a day. #4 chronic kidney disease stage III creatinine stable continue current manic medication and avoid nephrotoxic agent #5 hypertension continue losartan 50 twice daily #6 glaucoma continue dorzolamide Tibble drops both eyes tw ice a day #7 CODE STATUS full code #8 disposition TBD once wound culture finalized Objective - Vital Signs Vital signs: Vital Signs Temp 98.1 F 09/14/21 12:58 Pulse 67 09/14/21 12:58 Resp 18 09/14/21 12:58 BP 137/70 09/14/21 12:58 Pulse Ox 98 09/14/21 12:58 Intake & Output 09/13/21 09/14/21 09/14/21 18:59 06:59 18:59 Intake Total 300 Output Total 10 Balance 290 Weight 105.233 kg Intake: IV 300 Output: Estimated Blood Loss 10 Other: Voiding Method Toilet # Voids 4 2 - Labs CBC & Chem 7: 09/12/21 11:20 09/14/21 07:41 Labs: Abnormal Lab Results - Last 24 Hours (Table) 09/13/21 09/13/21 09/14/21 Range/Units 17:36 20:01 07:40 Creatinine (0.66-1.25) mg/dL POC Glucose (mg/dL) 165 H 170 H 110 H (75-99) mg/dL 09/14/21 09/14/21 Range/Units 07:41 12:24 Creatinine 1.34 H (0.66-1.25) mg/dL POC Glucose (mg/dL) 104 H (75-99) mg/dL Microbiology - Last 24 Hours (Table) 09/12/21 11:20 Blood Culture - Preliminary Blood No Growth after 48 hours 09/12/21 11:20 Blood Culture - Preliminary Blood No Growth after 48 hours
[2021-09-14 17:46] LABS: Glucose,Whole Blood 216 mg/dL (75-99)
[2021-09-14] MEDS: DORZOLAMIDE-TIMOLOL 2.23%/0.68 10ML BTL BOTH EYES SCH ×2 (17:51→20:59)
[2021-09-14 19:59] LABS: Glucose,Whole Blood 283 mg/dL (75-99)
--- NOTE | 2021-09-14 20:57 | P.PN ---
Subjective Progress Note Date: 09/14/21 Principal diagnosis: Right fifth toe diabetic foot infection Patient is 70-year-old male admitted to the hospital with a nonhealing wound to the right fifth toe failing outpatient local care and antibiotics.Pt is s/p amputation of the right 5th toe 09/14/21 On today's evaluation that is 09/14/2021, the patient is afebrile , the denies pain to the right fifth toe amputation site, the patient denies having any chest pain shortness of breath or cough no nausea no vomiting no abdominal pain no Objective - Vital Signs Vital signs: Vital Signs Temp 98.1 F 09/14/21 12:58 Pulse 66 09/14/21 13:45 Resp 17 09/14/21 13:45 BP 167/65 09/14/21 13:45 Pulse Ox 95 09/14/21 13:45 Intake & Output 09/14/21 09/14/21 09/15/21 06:59 18:59 06:59 Intake Total 300 454 Output Total 10 Balance 290 454 Weight 105.233 kg Intake: IV 300 Oral 454 Output: Estimated Blood Loss 10 Other: Voiding Method Toilet # Voids 2 4 - Exam General description is an elderly male lying in bed in no distress. Respiratory system:Unlabored breathing, decreased intensity in breath sounds. No wheeze. Heart S1, S2. Regular rate and rhythm. Abdomen soft, no tenderness. Right 5th toe amputation site wound is currently dressed no drainage of the dressing - Labs CBC & Chem 7: 09/12/21 11:20 09/14/21 07:41 Labs: Abnormal Lab Results - Last 24 Hours (Table) 09/14/21 09/14/21 09/14/21 Range/Units 07:40 07:41 12:24 Creatinine 1.34 H (0.66-1.25) mg/dL POC Glucose (mg/dL) 110 H 104 H (75-99) mg/dL 09/14/21 09/14/21 Range/Units 17:45 19:58 Creatinine (0.66-1.25) mg/dL POC Glucose (mg/dL) 216 H 283 H (75-99) mg/dL Microbiology - Last 24 Hours (Table) 09/14/21 11:40 Anaerobic Culture - Preliminary Toe - Right Fifth 09/14/21 11:40 Tissue Culture - Preliminary Toe - Right Fifth 09/12/21 11:20 Blood Culture - Preliminary Blood No Growth after 48 hours 09/12/21 11:20 Blood Culture - Preliminary Blood No Growth after 48 hours Assessment and Plan (1) Diabetic infection of right foot Current Visit: Yes Status: Acute Code(s): E11.628 - TYPE 2 DIABETES MELLITUS WITH OTHER SKIN COMPLICATIONS; L08.9 - LOCAL INFECTION OF THE SKIN AND SUBCUTANEOUS TISSUE, UNSP SNOMED Code(s): 04817720 Plan: 1patient with right diabetic foot infection involving the right fifth toe failing outpatient local care and antibiotic therapy , pt is s/p amputation of the right 5th toe and deep cultures patient is covered with Unasyn and vancomycin to continue while waiting for cultures to be finalized Time with Patient: Less than 30
[2021-09-14] MEDS: PRAVASTATIN SODIUM 40 MG TAB PO SCH (20:59)
[2021-09-14] MEDS: LATANOPROST 0.005% OPHTH DROPS 2.5 ML BTL BOTH EYES SCH (21:00)
[2021-09-15] MEDS: AMPICILLIN-SULBACTAM 3 GM in SODIUM CHLORIDE 0.9% 100 ML IVPB SCH ×4 (05:16→23:52)
[2021-09-15] MEDS: VANCOMYCIN 1,750 MG in SODIUM CHLORIDE 0.9% 500 ML 500 ML IVPB SCH ×2 (06:05→20:08)
[2021-09-15 07:26] LABS: Glucose,Whole Blood 144 mg/dL (75-99)
[2021-09-15] MEDS: INSULN ASP PRT/INSULIN ASPART 100 UNIT/ML 10 ML VIAL SQ SCH ×2 (08:09→17:39)
[2021-09-15] MEDS: LOSARTAN 50 MG TAB PO SCH ×2 (08:10→19:52)
[2021-09-15] MEDS: DORZOLAMIDE-TIMOLOL 2.23%/0.68 10ML BTL BOTH EYES SCH ×2 (08:11→19:53)
[2021-09-15 11:33] LABS: Glucose,Whole Blood 178 mg/dL (75-99)
[2021-09-15] MEDS: INSULIN ASPART (NovoLOG) 100 UNIT/ML VIAL SQ SCH ×3 (12:48→19:52)
--- NOTE | 2021-09-15 13:34 | P.PN ---
Subjective Progress Note Date: 09/15/21 History of present illness 70 years old male with past medical history of coronary artery disease status p ost stent, history of stomach cancer status post chemotherapy, history of testicular cancer, diabetes, hypertension, hyperlipidemia comes in with infected ulcer involving the fifth toe for the past 5 weeks. 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 Chery at [facility] with no improvement. He has been on antibiotics outpatient that did not clear the infection. Patient sent to the ER by the wound center for evaluation in the ER vitals are stable. Labs reviewed unremarkable CBC, creatinine 1.44 BUN 39 glucose 157 UA negative COVID Negative. X-ray of the toe was negative for acute osteomyelitis. Infectious disease consulted. Antibiotic initiated. 09/13 patient examined bedside. Denies any chest pain shortness of breath. Patient vitals reviewed, is afebrile bradycardic at 59 respiratory rate 14 blood pressure 160/76 creatinine improved 1.35 and urinalysis is negative COVID negative 09/14 patient examined bedside. Patient had amputation right fifth digit on 09/[address] Chery. Patient's pain isundercontrol.Patient denies any headache, chills, fever, chest pain or shortness of breath. He slept well overnight denies any GI discomfort patient labs are reviewed are stable. no recent labs 7. We'll order CBC and CMP for tomorrow wound cultures are pending 09/15: Patient is followed by Dr. Washington and currently on Unasyn and Vancomycin. Blood cultures are showing no growth. Wound cultures in process. CBG 144-283. Creatinine 1.31. Pain is controlled. ROS Constitutional: Denies chills, Denies fever, Denies lethargy, Denies malaise, Denies poor appetite, Denies weakness, Denies weight loss Eyes: denies decreased vision, denies diplopia, denies discharge, denies pain Ears: deny: decreased hearing Ears, nose, mouth and throat: Denies dental pain, Denies headache, Denies nasal discharge, Denies nose pain Cardiovascular: Denies chest pain, Denies decreased exercise tolerance, Denies edema, Denies high blood pressure, Denies irregular heart beat, Denies palpitations, Denies paroxysmal nocturnal dyspnea, Denies rapid heart beat, Denies shortness of breath Respiratory: Denies congestion, Denies cough, Denies cough with sputum, Denies dyspnea, Denies home oxygen, Denies wheezing Gastrointestinal: Denies abdominal pain, Denies change in bowel habits, Denies coffee ground emesis, Denies early satiety, Denies excessive gas, Denies heartburn, Denies hematemesis, Denies hematochezia, Denies loss of appetite, Denies nausea, Denies vomiting Genitourinary: Denies dysuria, Denies flank pain, Denies kidney stones, Denies menorrhagia, Denies urgency, Denies urinary frequency Musculoskeletal: Denies gait dysfunction, Denies limitation of motion, Denies morning stiffness, Denies muscle cramps Integumentary: Drainage involving the right digit fifth Neurological: Denies balance difficulties, Denies change in speech, Denies double vision, Denies gait dysfunction, Denies loss of vision, Denies motor disturbance, Denies numbness, Denies paralysis, Denies paresthesias, Denies seizures Physical exam - Constitutional General appearance: cooperative, no acute distress, obese - EENT Eyes: anicteric sclerae, PERRLA, normal appearance ENT: hearing grossly normal - Neck Neck: no lymphadenopathy, normal ROM, no other, no rigidity, no stridor, no thyromegaly - Respiratory Respiratory: bilateral: CTA, negative: diminished, dullness, rales, rhonchi - Cardiovascular Rhythm: regular Heart sounds: normal: S1, S2 Abnormal Heart Sounds: no systolic murmur, no diastolic murmur, no rub, no S3 Gallop, no S4 Gallop, no click, no other - Gastrointestinal General gastrointestinal: normal bowel sounds, soft nontender - Integumentary Integumentary: the right foot is dressed with kerlix and eron wraps and remian in boot, pulse can not be palpated - Neurologic Neurologic: No sensorimotor deficit - Musculoskeletal Musculoskeletal: gait not assessed strength equal bilaterallyThe right foot in a boot - Psychiatric Psychiatric: A&O x's 3, appropriate affect Assessment and plan #1 Actue diabetic ulcer with surrounding cellulitis involving fourth and fifth digit status post amputation of the right fifth toe 09/14. Infectious disease consulted continue patient on vancomycin and Unasyn. Wound cultures in progress. #2 type II uncontrolled diabetes with hyperglycemia. A1C 9.8 08/2021. Continue NovoLog 70 3025 units with supper and 40 units with breakfast, add NovoLog insulin scale. Hold metformin. Patient has continuous glucose monitoring. #3 coronary artery disease status post stent. hold aspirin. Continue pravastatin and losartan 50 twice a day. #4 chronic kidney disease stage III creatinine stable continue current medication and avoid nephrotoxic agent #5 hypertension continue losartan 50 twice daily #6 glaucoma continue dorzolamide and latanoprost drops. #7 CODE STATUS full code DISCHARGE PLAN Home Impression and plan of care have been directed as dictated by the signing physician. Mallorie Etienne nurse practitioner acting as scribe for signing physician. Objective - Vital Signs Vital signs: Vital Signs Temp 98.3 F 09/15/21 04:44 Pulse 75 09/15/21 04:44 Resp 16 09/15/21 04:44 BP 172/88 09/15/21 04:44 Pulse Ox 98 09/15/21 04:44 Intake & Output 09/14/21 09/15/21 09/15/21 18:59 06:59 18:59 Intake Total 300 1154 Output Total 10 Balance 290 1154 Weight 105.233 kg Intake: IV 300 Intake, IV Titration 700 Amount Ampicillin-Sulbactam 3 gm 200 In Sodium Chloride 0.9% 100 ml @ 200 mls/hr IVPB Q6HR MUNIRA Rx#:[id number] Vancomycin 1,750 mg In 500 Sodium Chloride 0.9% 500 ml 500 ml @ 167 mls/hr IVPB Q16H MUNIRA Rx#: [id number] Oral 454 Output: Estimated Blood Loss 10 Other: Voiding Method Toilet Toilet # Voids 4 - Labs CBC & Chem 7: 09/12/21 11:20 09/15/21 07:06 Labs: Abnormal Lab Results - Last 24 Hours (Table) 09/14/21 09/14/21 09/14/21 Range/Units 12:24 17:45 19:58 Creatinine (0.66-1.25) mg/dL POC Glucose (mg/dL) 104 H 216 H 283 H (75-99) mg/dL 09/15/21 09/15/21 Range/Units 07:06 07:22 Creatinine 1.31 H (0.66-1.25) mg/dL POC Glucose (mg/dL) 144 H (75-99) mg/dL Microbiology - Last 24 Hours (Table) 09/14/21 11:40 Gram Stain - Preliminary Toe - Right Fifth Tissue Culture - Preliminary 09/12/21 15:37 Gram Stain - Final Toe - Right Fifth Wound Culture - Final 09/14/21 11:40 Anaerobic Culture - Preliminary Toe - Right Fifth 09/12/21 11:20 Blood Culture - Preliminary Blood No Growth after 48 hours 09/12/21 11:20 Blood Culture - Preliminary Blood No Growth after 48 hours
[2021-09-15 17:22] LABS: Glucose,Whole Blood 175 mg/dL (75-99)
[2021-09-15 19:12] LABS: Glucose,Whole Blood 175 mg/dL (75-99)
[2021-09-15] MEDS: PRAVASTATIN SODIUM 40 MG TAB PO SCH (19:52)
[2021-09-15] MEDS: LATANOPROST 0.005% OPHTH DROPS 2.5 ML BTL BOTH EYES SCH (19:53)
[2021-09-15] MEDS ORDERED: VANCOMYCIN TROUGH DUE 1 EACH MISC MISCELLANE ONE (20:00)
--- NOTE | 2021-09-15 23:12 | P.PN ---
Subjective Progress Note Date: 09/15/21 Principal diagnosis: Right fifth toe diabetic foot infection Patient is 70-year-old male admitted to the hospital with a nonhealing wound to the right fifth toe failing outpatient local care and antibiotics.Pt is s/p amputation of the right 5th toe 09/14/21 On today's evaluation that is 09/15/2021, the patient remains to be afebrile , the patient pain to the right fifth toe amputation site is currently controlled, the patient denies having any chest pain shortness of breath or cough no nausea no vomiting no abdominal pain no Objective - Vital Signs Vital signs: Vital Signs Temp 97.9 F 09/15/21 19:05 Pulse 71 09/15/21 20:00 Resp 18 09/15/21 20:00 BP 164/74 09/15/21 19:05 Pulse Ox 100 09/15/21 19:05 Intake & Output 09/15/21 09/15/21 09/16/21 06:59 18:59 06:59 Intake Total 1154 200 Balance 1154 200 Intake: Intake, IV Titration 700 200 Amount Ampicillin-Sulbactam 3 gm 200 200 In Sodium Chloride 0.9% 100 ml @ 200 mls/hr IVPB Q6HR MUNIRA Rx#:[id number] Vancomycin 1,750 mg In 500 Sodium Chloride 0.9% 500 ml 500 ml @ 167 mls/hr IVPB Q16H MUNIRA Rx#: [id number] Oral 454 Other: Voiding Method Toilet Toilet Toilet - Exam General description is an elderly male lying in bed in no distress. Respiratory system:Unlabored breathing, decreased intensity in breath sounds. No wheeze. Heart S1, S2. Regular rate and rhythm. Abdomen soft, no tenderness. Right 5th toe amputation site wound is currently dressed no drainage of the dr daniels - Labs CBC & Chem 7: 09/12/21 11:20 09/15/21 07:06 Labs: Abnormal Lab Results - Last 24 Hours (Table) 09/15/21 09/15/21 09/15/21 Range/Units 07:06 07:22 11:20 Creatinine 1.31 H (0.66-1.25) mg/dL POC Glucose (mg/dL) 144 H 178 H (75-99) mg/dL 09/15/21 09/15/21 Range/Units 17:20 19:10 Creatinine (0.66-1.25) mg/dL POC Glucose (mg/dL) 175 H 175 H (75-99) mg/dL Microbiology - Last 24 Hours (Table) 09/12/21 11:20 Blood Culture - Preliminary Blood No Growth after 72 hours 09/12/21 11:20 Blood Culture - Preliminary Blood No Growth after 72 hours 09/14/21 11:40 Gram Stain - Preliminary Toe - Right Fifth Tissue Culture - Preliminary 09/12/21 15:37 Gram Stain - Final Toe - Right Fifth Wound Culture - Final Assessment and Plan (1) Diabetic infection of right foot Current Visit: Yes Status: Acute Code(s): E11.628 - TYPE 2 DIABETES MELLITUS WITH OTHER SKIN COMPLICATIONS; L08.9 - LOCAL INFECTION OF THE SKIN AND SUB CUTANEOUS TISSUE, UNSP SNOMED Code(s): 06474199 Plan: 1patient with right diabetic foot infection involving the right fifth toe failing outpatient local care and antibiotic therapy , the patient is s/p amputation of the right 5th toe and deep cultures which are currently pending patient is covered with Unasyn and vancomycin to continue while waiting for cultures to be finalized to determine his discharge antibiotics Time with Patient: Less than 30
[2021-09-16] MEDS: AMPICILLIN-SULBACTAM 3 GM in SODIUM CHLORIDE 0.9% 100 ML IVPB SCH ×2 (05:36→13:15)
[2021-09-16 07:11] LABS: Glucose,Whole Blood 98 mg/dL (75-99)
[2021-09-16 07:52] VITALS: RESP 16
[2021-09-16] MEDS: INSULIN ASPART (NovoLOG) 100 UNIT/ML VIAL SQ SCH ×2 (08:18→13:32)
[2021-09-16] MEDS: INSULN ASP PRT/INSULIN ASPART 100 UNIT/ML 10 ML VIAL SQ SCH (08:42)
--- NOTE | 2021-09-16 10:18 | P.DS ---
Providers Date of admission: 09/12/21 12:48 Expected date of discharge: 09/16/21 Attending physician: Petar Gutierrez MD Consults: 09/12/21 12:48 Consult Physician Urgent Consulting Provider: Jasbir Chery Consult Reason/Comments: Gangrenous right fifth toe Do you want consulting provider notified?: Yes Consult Physician Urgent Consulting Provider: Keegan Washington Consult Reason/Comments: Infected toe Do you want consulting provider notified?: Yes Primary care physician: [facility] Course: History of present illness 70 years old male with past medical history of coronary artery disease status post stent, history of stomach cancer status post chemotherapy, history of testicular cancer, diabetes, hypertension, hyperlipidemia comes in with infected ulcer involving the fifth toe for the past 5 weeks. 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 Chery at [facility] with no improvement. He has been on antibiotics outpatient that did not clear the infection. Patient sent to the ER by the wound center for evaluation in the ER vitals are stable. Labs reviewed unremarkable CBC, creatinine 1.44 BUN 39 glucose 157 UA negative COVID Negative. X-ray of the toe was negative for acute osteomyelitis. Infectious disease consulted. Antibiotic initiated. 09/13 patient examined bedside. Denies any chest pain shortness of breath. Patient vitals reviewed, is afebrile bradycardic at 59 respiratory rate 14 blood pressure 160/76 creatinine improved 1.35 and urinalysis is negative COVID negative 09/14 patient examined bedside. Patient had amputation right fifth digit on 09/[address] Chery. Patient's pain isundercontrol.Patient denies any headache, chills, fever, chest pain or shortness of breath. He slept well overnight denies any GI discomfort patient labs are reviewed are stable. no recent labs 7. We'll order CBC and CMP for tomorrow wound cultures are pending 09/15: Patient is followed by Dr. Washington and currently on Unasyn and Vancomycin. Blood cultures are showing no growth. Wound cultures in process. CBG 144-283. Creatinine 1.31. Pain is controlled. 09/16: Wound cultures and finalized with normal skin earnest. Anaerobic cultures are in progress. Tissue culture is positive for alpha hemolytic streptococcus. Dr. Washington has recommended Augmentin for a seven-day course. Repeat blood work reveals A blood glucose running between 98 and 194. We will plan to resume metformin at home. Patient will be discharged today in stable condition with plan to follow-up with Dr. Chery, W[facility], Dr. Washington. DISCHARGE DIAGNOSES #1 Actue diabetic ulcer with surrounding cellulitis involving fourth and fifth digit status post amputation of the right fifth toe 09/14. #2 type II uncontrolled diabetes with hyperglycemia. A1C 9.8 08/2021. #3 coronary artery disease status post stent. #4 chronic kidney disease stage III #5 hypertension #6 glaucoma DISCHARGE PLAN Home Greater than 35 minutes was utilized and coordinating patient's discharge. Impression and plan of care have been directed as dictated by the signing physician. Mallorie Etienne nurse practitioner acting as scribe for signing physician. Patient Condition at Discharge: Good Plan - Discharge Summary Discharge Rx Participant: No New Discharge Prescriptions: New Amoxicillin/Potassium Clav [Augmentin 875-125 Tablet] 1 tab PO BID 7 Days #14 tab Continue metFORMIN HCL [Glucophage] 1,000 mg PO DAILY Pravastatin Sodium [Pravachol] 40 mg PO HS metFORMIN HCL [Glucophage] 500 mg PO HS Insulin NPH Hum/Reg Insulin Hm [NovoLIN 70-30 100 UNIT/ML VIAL] 40 unit SQ AC-BRKFST Insulin NPH Hum/Reg Insulin Hm [NovoLIN 70-30 100 UNIT/ML VIAL] 25 unit SQ AC-SUPPER Ubidecarenone [Co Q-10] 100 mg PO DAILY Aspirin 81 mg PO BID Cholecalciferol [Vitamin D3 (25 Mcg = 1000 Iu)] 25 mcg PO DAILY Dorzolamide-Timol 2.23%/0.68% [Cosopt] 1 drop BOTH EYES BID Doxycycline Hyclate 100 mg PO BID Latanoprost [Xalatan 0.005%] 1 drop BOTH EYES HS Losartan Potassium 50 mg PO BID Discharge Medication List metFORMIN HCL [Glucophage] 1,000 mg PO DAILY 03/02/18 [History] Pravastatin Sodium [Pravachol] 40 mg PO HS 12/28/18 [History] metFORMIN HCL [Glucophage] 500 mg PO HS 12/31/18 [History] Aspirin 81 mg PO BID 09/12/21 [History] Cholecalciferol [Vitamin D3 (25 Mcg = 1000 Iu)] 25 mcg PO DAILY 09/12/21 [History] Dorzolamide-Timol 2.23%/0.68% [Cosopt] 1 drop BOTH EYES BID 09/12/21 [History] Doxycycline Hyclate 100 mg PO BID 09/12/21 [History] Insulin NPH Hum/Reg Insulin Hm [NovoLIN 70-30 100 UNIT/ML VIAL] 25 unit SQ AC- SUPPER 09/12/21 [History] Insulin NPH Hum/Reg Insulin Hm [NovoLIN 70-30 100 UNIT/ML VIAL] 40 unit SQ AC- BRKFST 09/12/21 [History] Latanoprost [Xalatan 0.005%] 1 drop BOTH EYES HS 09/12/21 [History] Losartan Potassium 50 mg PO BID 09/12/21 [History] Ubidecarenone [Co Q-10] 100 mg PO DAILY 09/12/21 [History] Amoxicillin/Potassium Clav [Augmentin 875-125 Tablet] 1 tab PO BID 7 Days #14 tab 09/16/21 [Rx] Follow up Appointment(s)/Referral(s): Jasbir Chery DPM [STAFF PHYSICIAN] - 1-2 Days (TO BE SEEN IN HIS OFFICE ON WednesdaySEP 16, INSTRUCTIONS GIVEN TO .) Cassius Richardson MD [Primary Care Provider] - 1 Week [facility] [NON-STAFF] - 1 Week (The edge worker was at lunch I will call back.) Keegan Washington MD [STAFF PHYSICIAN] - 1 Week Discharge Disposition: HOME SELF-CARE
[2021-09-16] MEDS: DORZOLAMIDE-TIMOLOL 2.23%/0.68 10ML BTL BOTH EYES SCH (10:31)
[2021-09-16] MEDS: LOSARTAN 50 MG TAB PO SCH (10:32)
[2021-09-16 11:25] LABS: Glucose,Whole Blood 194 mg/dL (75-99)
[2021-09-16 11:31] VITALS: BP 166/78; PULSE 65; TEMP 98.3
[2021-09-16] MEDS ORDERED: NEOMYCIN-BACITRACIN-POLY OINT 14 GM TUBE TOPICAL SCH (12:45)
[2021-09-16] MEDS: VANCOMYCIN 1,750 MG in SODIUM CHLORIDE 0.9% 500 ML 500 ML IVPB SCH (13:22)
== END 2021-09-16 15:20 | disposition home health service (06) | DRG 257 ==
LOC: EC 10:34 → 5NMEDONC 12:48
PROVIDERS: ADMIT Internal Medicine; ATTEND Internal Medicine
PROC: 0Y6X0Z1 Detachment at Right 5th Toe, High, Open Approach (ICD-10-PCS; principal; 2021-09-14 09:14)
DX: E11.52 Type 2 diabetes mellitus with diabetic peripheral angiopathy with gangrene (principal); E11.621 Type 2 diabetes mellitus with foot ulcer; E11.22 Type 2 diabetes mellitus with diabetic chronic kidney disease; E11.628 Type 2 diabetes mellitus with other skin complications; E11.40 Type 2 diabetes mellitus with diabetic neuropathy, unspecified; L97.513 Non-pressure chronic ulcer of other part of right foot with necrosis of muscle; L03.031 Cellulitis of right toe; B95.0 Streptococcus, group A, as the cause of diseases classified elsewhere; E11.65 Type 2 diabetes mellitus with hyperglycemia; N18.30 Chronic kidney disease, stage 3 unspecified; I12.9 Hypertensive chronic kidney disease with stage 1 through stage 4 chronic kidney disease, or unspecified chronic kidney disease; Z79.4 Long term (current) use of insulin; Z20.822 Contact with and (suspected) exposure to COVID-19; I25.10 Atherosclerotic heart disease of native coronary artery without angina pectoris; E78.5 Hyperlipidemia, unspecified; H40.9 Unspecified glaucoma; I25.2 Old myocardial infarction; E66.9 Obesity, unspecified; Z68.30 Body mass index [BMI] 30.0-30.9, adult; M19.90 Unspecified osteoarthritis, unspecified site; Z79.82 Long term (current) use of aspirin; Z79.84 Long term (current) use of oral hypoglycemic drugs; Z79.899 Other long term (current) drug therapy; Z85.028 Personal history of other malignant neoplasm of stomach; Z95.5 Presence of coronary angioplasty implant and graft; Z92.21 Personal history of antineoplastic chemotherapy; Z85.47 Personal history of malignant neoplasm of testis; Z87.891 Personal history of nicotine dependence; Z98.42 Cataract extraction status, left eye; Z98.41 Cataract extraction status, right eye; Z87.01 Personal history of pneumonia (recurrent); Z86.19 Personal history of other infectious and parasitic diseases; Z86.79 Personal history of other diseases of the circulatory system; Z98.890 Other specified postprocedural states; Z80.42 Family history of malignant neoplasm of prostate
CPT/HCPCS: 36415; 80053; 80202; 81003; 82565; 83605; 85025; 85610; 85652; 85730; 86140; 87040; 87070; 87075; 87205; 87635; 88305; 88311; 93005; 96365; 96375; 99285

== ENCOUNTER → 2023-01-04 | Outpatient (CLI) | payer MEDICARE, BC ==
--- NOTE | 2023-01-05 14:16 | XR ---
EXAMINATION TYPE: XR knee limited LT DATE OF EXAM: 01/04/2023 COMPARISON: NONE HISTORY: 72-year-old male M2 5.562 TECHNIQUE: 2 views FINDINGS: There is mild degenerative spurring within all 3 compartments of the knee. A moderate knee joint effusion is present. Extensor mechanism appears intact. No acute fracture, subluxation, disloca tion. IMPRESSION: 1. Moderate knee joint effusion is nonspecific. If concern for internal derangement, MRI can be perfo rmed. 2. Mild tricompartmental degenerative spurring. 3. No acute osseous abnormality seen.
== END | disposition home or self-care (01) ==
LOC: RADXRMAIN 17:34
PROVIDERS: ATTEND Internal Medicine Geriatric Medicine
DX: M17.12 Unilateral primary osteoarthritis, left knee (principal); M25.462 Effusion, left knee

== ENCOUNTER → 2023-01-19 | Outpatient (CLI) | payer MEDICARE, BC ==
--- NOTE | 2023-01-20 06:17 | MR ---
EXAMINATION TYPE: MR knee LT wo con DATE OF EXAM: 01/19/2023 COMPARISON: Left knee x-ray January 04, 2023 HISTORY: Left knee outer pain for 7 to 8 months with history of prior surgery TECHNIQUE: Multiplanar, multisequence images of the knee is performed without IV contrast. FINDINGS: MEDIAL MENISCUS: Oblique signal posterior horn extends to superior articular surface sagittal image 2 9. LATERAL MENISCUS: Anterior and posterior horns are intact without tear. CRUCIATE LIGAMENTS: The anterior and posterior cruciate ligaments are intact and unremarkable. COLLATERAL LIGAMENTS: The lateral collateral ligament complex is intact and unremarkable. There is pa rtial tearing of the medial collateral ligament deeper fibers with surrounding fluid. EXTENSOR MECHANISM: Visualized quadriceps and patellar tendons are intact. EFFUSION: Moderate-sized suprapatellar joint effusion. POPLITEAL CYST: Small leaking popliteal/almeida cyst. Increased signal proximal insertion of the semime mbranosus tendon. TRICOMPARTMENT SPACES: Moderate narrowing and mild to moderate spurring patellofemoral compartment CARTILAGE: Some cartilaginous loss superior aspect of the posterior patella BONE MARROW SIGNAL: Focus of increased T2 signal along the posterior aspect of the superior patella. OTHER: No additional significant abnormality is appreciated. IMPRESSION: 1. Full-thickness tear posterior horn medial meniscus. 2. Partial tearing and sprain injury of the MCL. 3. Tricompartment degenerative changes that are at least moderate in appears patellofemoral compartme nt as detailed above. 4. Moderate-sized suprapatellar joint effusion. 5. Small size leaking popliteal cyst.
== END | disposition home or self-care (01) ==
LOC: RADMRIMAIN 19:08
PROVIDERS: ATTEND Internal Medicine Geriatric Medicine
DX: S83.242A Other tear of medial meniscus, current injury, left knee, initial encounter (principal); M17.12 Unilateral primary osteoarthritis, left knee; M25.462 Effusion, left knee; M71.22 Synovial cyst of popliteal space [Baker], left knee

== ENCOUNTER 2023-04-17 09:22 | Inpatient (IN) | payer MEDICARE, BC ==
[2023-04-17] MEDS ORDERED: MECLIZINE 12.5 MG TAB PO STA (10:09)
[2023-04-17] MEDS ORDERED: SODIUM CHLORIDE 0.9% 1,000 ML IV STA (10:10)
[2023-04-17] MEDS ORDERED: METOCLOPRAMIDE 5 MG/ML 2 ML VIAL IVP STA (10:10)
--- NOTE | 2023-04-17 10:13 | ED ---
General Adult HPI - General Chief complaint: Dizziness Stated complaint: R55 Dizziness Time Seen by Provider: 04/17/23 09:30 Source: patient, EMS Mode of arrival: EMS Limitations: no limitations - History of Present Illness Initial comments: Dictation was produced using Minted dictation software. please excuse any grammatical, word or spelling errors. Chief Complaint: 72-year-old male presents emergency Department with vertigo History of Present Illness: Patient is 72-year-old male presents emergency department vertigo. Patient has multiple comorbidities states that yesterday morning he woke up with brief episode that resolved on its own. He was able to get up and go about his usual visits. He woke up this morning tried to sit up AND felt intense bout of dizziness. Denies any numbness tingling paresthesias of the arms or legs. Tried 3 times to sit up but felt so vertiginous that he laid back down. States that when he lies flat symptoms improved. Patient has any history of vertigo. Denies any headache. The ROS documented in this emergency department record has been reviewed and confirmed by me. Those systems with pertinent positive or negative responses have been documented in the HPI. All other systems are other negative and/or noncontributory. - Related Data Home Medications Medication Instructions Recorded Confirmed metFORMIN HCL [Glucophage] 1,000 mg PO DAILY 03/02/18 09/12/21 Pravastatin Sodium [Pravachol] 40 mg PO HS 12/28/18 09/12/21 metFORMIN HCL [Glucophage] 500 mg PO HS 12/31/18 09/12/21 Aspirin 81 mg PO BID 09/12/21 09/12/21 Cholecalciferol [Vitamin D3 (25 25 mcg PO DAILY 09/12/21 09/12/21 Mcg = 1000 Iu)] Dorzolamide-Timol 2.23%/0.68% 1 drop BOTH EYES BID 09/12/21 09/12/21 [Cosopt] Doxycycline Hyclate 100 mg PO BID 09/12/21 09/12/21 Insulin NPH Hum/Reg Insulin Hm 25 unit SQ AC-SUPPER 09/12/21 09/12/21 [NovoLIN 70-30 100 UNIT/ML VIAL] Insulin NPH Hum/Reg Insulin Hm 40 unit SQ AC-BRKFST 09/12/21 09/12/21 [NovoLIN 70-30 100 UNIT/ML VIAL] Latanoprost [Xalatan 0.005%] 1 drop BOTH EYES HS 09/12/21 09/12/21 Losartan Potassium 50 mg PO BID 09/12/21 09/12/21 Ubidecarenone [Co Q-10] 100 mg PO DAILY 09/12/21 09/12/21 Previous Rx's Medication Instructions Recorded Amoxicillin/Potassium Clav 1 tab PO BID 7 Days #14 tab 09/16/21 [Augmentin 875-125 Tablet] Allergies Allergy/AdvReac Type Severity Reaction Status Date / Time No Known Allergies Allergy Verified 04/17/23 09:32 Review of Systems ROS Statement: Those systems with pertinent positive or pertinent negative responses have been documented in the HPI. ROS Other: All systems not noted in ROS Statement are negative. Past Medical History Past Medical History: Coronary Artery Disease (CAD), Cancer, Chest Pain / Angina, Diabetes Mellitus, Eye Disorder, Hyperlipidemia, Hypertension, Myocardial Infarction (PR), Osteoarthritis (OA), Pneumonia, Renal Disease, Syncope, Vascular Disorder Additional Past Medical History / Comment(s): IDDM type II, neuropathy bilateral feet, R testicular cancer with surgery/chemo, pneumonia with sepsis, CKD stage III, R eye glaucoma, PVD, past R lower extremity cellulitis, past R great toe wound. Last Myocardial Infarction Date:: 04/05/16 History of Any Multi-Drug Resistant Organisms: None Reported Past Surgical History: Heart Catheterization With Stent Additional Past Surgical History / Comment(s): PCI with stent 2015, mitral valve repair at [facility], [facility], R testicular cancer with surgery/node dissection, bilateral cataract removals. Past Anesthesia/Blood Transfusion Reactions: No Reported Reaction Date of Last Stent Placement:: 04/05/16 Past Psychological History: No Psychological Hx Reported Smoking Status: Former smoker - Past Family History Mother Family Medical History: No Reported History Additional Family Medical History / Comment(s): Mother is . Father Family Medical History: Cancer Additional Family Medical History / Comment(s): Father at age 84 from prostate cancer. Brother(s) Family Medical History: Cancer Additional Family Medical History / Comment(s): Patient has 4 brothers with no major medical problems. Sister(s) Family Medical History: Cancer Additional Family Medical History / Comment(s): Patient has 2 sisters with no major medical problems. Daughter(s) Additional Family Medical History / Comment(s): Patient has 2 brothers with no major medical problems. General Exam - General Exam Comments Initial Comments: PHYSICAL EXAM: General Impression: Alert and oriented x3, not in acute distress HEENT: Normocephalic atraumatic, extra-ocular movements intact, pupils equal and reactive to light bilaterally, mucous membranes moist. Cardiovascular: Heart regular rate and rhythm Chest: Able to complete full sentences, no retractions, no tachypnea Abdomen: abdomen soft, non-tender, non-distended, no organomegaly Musculoskeletal: Pulses present and equal in all extremities, no peripheral lindsay a Motor: no focal deficits noted Neurological: CN II-XII grossly intact, no focal motor or sensory deficits noted, left beating nystagmus with fast phase to the left Skin: Intact with no visualized rashes Psych: Normal affect and mood Limitations: no limitations Course Vital Signs 04/17/23 04/17/23 04/17/23 09:29 09:32 11:30 Temperature 97.2 F L Pulse Rate 65 65 Respiratory 16 18 Rate Blood Pressure 165/79 165/79 Blood Pressure [Left Arm Sitting] Blood Pressure [Left Arm Standing] Blood Pressure [Left Arm Supine] O2 Sat by Pulse 96 100 99 Oximetry 04/17/23 04/17/23 12:00 12:24 Temperature Pulse Rate 68 Respiratory 20 Rate Blood Pressure 164/78 Blood Pressure 145/109 [Left Arm Sitting] Blood Pressure 120/65 [Left Arm Standing] Blood Pressure 142/73 [Left Arm Supine] O2 Sat by Pulse 98 Oximetry EKG Findings - EKG Comments: EKG Findings:: My EKG interpretation: Ventricular rate 64, sinus rhythm,. Interval to 22, QRS 110, QTc 39. No CT prolongation, no QTC prolongation, no ST or T-wave changes noted.. Overall, this EKG is unremarkable Medical Decision Making - Medical Decision Making Was pt. sent in by a medical professional or institution (, PA, WOUND CARE CENTER CONSULTANT, urgent care, hospital, or longterm...) When possible be specific @ -No Did you speak to anyone other than the patient for history (EMS, parent, family, police, friend...)? What history was obtained from this source @ -No Did you review nursing and triage notes (agree or disagree)? Why? @ -I reviewed and agree with nursing and triage notes Were old charts reviewed (outside hosp., previous admission, EMS record, old EKG, old radiological studies, urgent care reports/EKG's, longterm records)? Report findings @ -No old charts were reviewed Differential Diagnosis (chest pain, altered mental status, abdominal pain women, abdominal pain men, vaginal bleeding, musculoskeletal, weakness, fever, dyspnea, syncope, headache, dizziness, GI bleed, back pain, seizure, CVA, palpatations, mental health)? @ -Differential Dizziness: Benign paroxysmal positional Vertigo, Menieres disease, otitis media, acoustic neuroma, vertebrobasilar insufficiency, cerebellar stroke, encephalitis, hypovolemic, arrhythmia, coronary artery syndrome, anemia, this is not meant to be an all-inclusive list EKG interpreted by me (3pts min.). @ -See above X-rays interpreted by me (1pt min.). @ -None done CT interpreted by me (1pt min.). @ -CT brain is unremarkable U/S interpreted by me (1pt. min.). @ -None done What testing was considered but not performed or refused? (CT, X-rays, U/S, labs)? Why? @ -None What meds were considered but not given or refused? Why? @ -None Did you discuss the management of the patient with other professionals (professionals i.e. , PA, WOUND CARE CENTER CONSULTANT, lab, RT, psych nurse, health care social worker, training consultant, teacher, mobile patrol officer, correctional counselor/case manager)? Give summary @ -Case discussed with sheet for admission Was smoking cessation discussed for >3mins.? @ -No Was critical care preformed (if so, how long)? @ -No Were there social determinants of health that impacted care today? How? (Homelessness, low income, unemployed, alcoholism, drug addiction, tr ansportation, low edu. Level, literacy, decrease access to med. care, care home, rehab)? @ -No Was there de-escalation of care discussed even if they declined (Discuss DNR or withdrawal of care, Hospice)? DNR status @ -No What co-morbidities impacted this encounter? (DM, HTN, Smoking, COPD, CAD, Cancer, CVA, ARF, Chemo, Hep., AIDS, mental health diagnosis, sleep apnea, morbid obesity)? @ -None Was patient admitted / discharged? Hospital course, mention meds given and route, prescriptions, significant lab abnormalities, going to OR and other pertinent info. @ -72-year-old male presents to the ER for worsening vertigo. Vital signs upon arrival are within acceptable limits. Patient has symptoms suggestive benign paroxysmal positional vertigo however symptoms are too severe. She treated with Antivert to go home medications with no significant improvement. Patient unable to ambulate. Also blood pressures are within acceptable limits. Patient be admitted. CT angio pending. Neurology consulted Undiagnosed new problem with uncertain prognosis? @ -No Drug Therapy requiring intensive monitoring for toxicity (Heparin, Nitro, Insulin, Cardizem)? @ -No Were any procedures done? @ -No Diagnosis/symptom? Acute, or Chronic, or Acute on Chronic? Uncomplicated (without systemic symptoms) or Complicated (systemic symptoms)? @ -1. intractable vertigo Side effects of treatment? @ -No Exacerbation, Progression, or Severe Exacerbation? @ -No Poses a threat to life or bodily function? How? (Chest pain, USA, PR, pneumonia, PE, COPD, DKA, ARF, appy, cholecystitis, CVA, Diverticulitis, Homicidal, Suicidal, threat to staff... and all critical care pts) @ -yes - Lab Data Result diagrams: 04/17/23 10:11 04/17/23 10:11 Lab Results 04/17/23 04/17/23 04/17/23 Range/Units 10:11 10:11 10:50 WBC 10.7 H (3.8-10.6) k/uL RBC 4.45 (4.30-5.90) m/uL Hgb 13.0 (13.0-17.5) gm/dL Hct 38.2 L (39.0-53.0) % MCV 85.9 (80.0-100.0) fL MCH 29.1 (25.0-35.0) pg MCHC 33.9 (31.0-37.0) g/dL RDW 13.6 (11.5-15.5) % Plt Count 307 (150-450) k/uL MPV 8.3 Neutrophils % 79 % Lymphocytes % 13 % Monocytes % 7 % Eosinophils % 1 % Basophils % 0 % Neutrophils # 8.4 H (1.3-7.7) k/uL Lymphocytes # 1.4 (1.0-4.8) k/uL Monocytes # 0.7 (0-1.0) k/uL Eosinophils # 0.1 (0-0.7) k/uL Basophils # 0.0 (0-0.2) k/uL Sodium 136 L (137-145) mmol/L Potassium 5.2 H (3.5-5.1) mmol/L Chloride 106 (98-107) mmol/L Carbon Dioxide 23 (22-30) mmol/L Anion Gap 7 mmol/L BUN 25 H (9-20) mg/dL Creatinine 1.35 H (0.66-1.25) mg/dL Est GFR (CKD-EPI)AfAm 61 (>60 ml/min/1.73 sqM) Est GFR (CKD-EPI)NonAf 52 (>60 ml/min/1.73 sqM) Glucose 97 (74-99) mg/dL Calcium 9.5 (8.4-10.2) mg/dL Urine Color Light Yellow Urine Appearance Clear (Clear) Urine pH 8.0 (5.0-8.0) Ur Specific [place] 1.010 (1.001-1.035) Urine Protein Trace H (Negative) Urine Glucose (UA) Negative (Negative) Urine Ketones Negative (Negative) Urine Blood Small H (Negative) Urine Nitrite Negative (Negative) Urine Bilirubin Negative (Negative) Urine Urobilinogen <2.0 (<2.0) mg/dL Ur Leukocyte Esterase Moderate H (Negative) Urine RBC 19 H (0-5) /hpf Urine WBC 22 H (0-5) /hpf Urine Bacteria Rare H (None) /hpf Urine Mucus Rare H (None) /hpf Disposition Clinical Impression: Vertigo Disposition: ADMITTED IP TO THIS HOSP Condition: Fair Referrals: Cassius Richardson MD [Primary Care Provider] - 1-2 days Decision Time: 13:04
[2023-04-17 10:25] LABS: Basophils % (A) 0 %; Eosinophils # (A) 0.1 k/uL (0-0.7); Eosinophils % (A) 1 %; HCT 38.2 % (39.0-53.0); Lymphocytes # (A) 1.4 k/uL (1.0-4.8); Lymphocytes % (A) 13 %; MCH 29.1 pg (25.0-35.0); MCHC 33.9 g/dL (31.0-37.0); MCV 85.9 fL (80.0-100.0); Mean Platelet Volume 8.3; Monocytes # (A) 0.7 k/uL (0-1.0); Monocytes % (A) 7 %; Neutrophils # (A) 8.4 k/uL (1.3-7.7); Neutrophils % (A) 79 %; Platelet Count 307 k/uL (150-450); RBC 4.45 m/uL (4.30-5.90); RDW 13.6 % (11.5-15.5); WBC 10.7 k/uL (3.8-10.6)
[2023-04-17 10:33] LABS: African American GFR (CKD) 61 (>60 ml/min/1.73 sqM); Anion Gap 7 mmol/L; Blood Urea Nitrogen 25 mg/dL (9-20); Calcium 9.5 mg/dL (8.4-10.2); Carbon Dioxide 23 mmol/L (22-30); Chloride 106 mmol/L (98-107); Glucose 97 mg/dL (74-99); Non-African American GFR(CKD) 52 (>60 ml/min/1.73 sqM); Potassium 5.2 mmol/L (3.5-5.1); Sodium 136 mmol/L (137-145)
[2023-04-17 11:26] LABS: Appearance,Urine Clear (Clear); Bacteria,Urine Rare /hpf; Bilirubin,Urine Negative (Negative); Blood,Urine Small (Negative); Color,Urine Light Yellow; Glucose,Urine (UA) Negative (Negative); Ketones,Urine Negative (Negative); Leukocyte Esterase,Urine Moderate (Negative); Mucus,Urine Rare /hpf; Nitrite,Urine Negative (Negative); Protein,Urine Trace (Negative); RBC,Urine 19 /hpf (0-5); Urobilinogen,Urine <2.0 mg/dL (<2.0); WBC,Urine 22 /hpf (0-5)
--- NOTE | 2023-04-17 11:51 | CT ---
EXAMINATION TYPE: CT brain wo con DATE OF EXAM: 04/17/2023 COMPARISON: None HISTORY: 72-year-old male Dizziness. TECHNIQUE: Examination was done in axial plane without intravenous contrast. Coronal and sagittal r econstructions performed. CT DLP: 1233.4 mGycm Automated exposure control for dose reduction was used. FINDINGS: There is no evidence of acute intracranial hemorrhage, acute ischemic changes, mass, mass-effect, or extra-axial fluid collection. There is no effacement of cerebral sulci or basal subarachnoid cister ns. Mild ventricular prominence may be due to central cerebral atrophy. Hector's ratio calculated at 0. 36. There is no midline shift. [place]-white matter distinction is preserved. Left globe scleral banding. Cerumen right external auditory canal. Mild mucosal thickening ethmoid ai r cells and floors of the maxillary sinuses. Mastoid air cells well pneumatized. IMPRESSION: Mild ventriculomegaly may be due to central cervical atrophy. Correlate to exclude a component of NPH . Otherwise, no acute intracranial abnormality seen. Mild chronic ethmoid and maxillary sinus disease.
[2023-04-17] MEDS ORDERED: NALOXONE 0.4 MG/ML 1 ML VIAL IV PRN (12:49)
[2023-04-17] MEDS: SODIUM CHLORIDE 0.9% 1,000 ML IV SCH ×2 (13:10→14:55)
[2023-04-17] MEDS ORDERED: DEXTROSE 50% SYRINGE 50 ML IVP PRN ×2 (13:23)
--- NOTE | 2023-04-17 13:43 | CT ---
EXAMINATION TYPE: CT angio head neck CT DLP: 696.7 mGycm, Automated exposure control for dose reduction was used. DATE OF EXAM: 04/17/2023 1:02 PM COMPARISON: 04/17/2023. CLINICAL INDICATION:Male, 72 years old with history of severe vertigo; PHH, dizziness TECHNIQUE: Axially acquired helical CT angiogram of the head and neck was obtained with contrast. Axi al images are supplemented with 3D reconstructions [facility] NASCET criteria used. Contrast used:65 mL of Isovue 370 without and with IV Contrast, Oral contrast used: None. FINDINGS: CTA HEAD: No evidence of acute intracranial hemorrhage, mass effect, or midline shift. The ventricles, sulci, a nd cisterns are unremarkable. The visualized portions of the internal carotid arteries, middle cerebral arteries, anterior cerebral arteries, and posterior cerebral arteries are patent. The basilar and vertebral arteries are patent. CTA NECK: Right Carotid System: The common carotid and external carotid arteries are patent. There is less than 25% stenosis at the c arotid bifurcation secondary to calcified/noncalcified plaque. The rest of the internal carotid arter y is patent. Left Carotid System: The common carotid and external carotid arteries are patent. There is less than 25% stenosis at the c arotid bifurcation secondary to calcified/noncalcified plaque. The rest of the internal carotid arter y is patent. Vertebral arteries are patent without evidence hemodynamically significant stenosis. There is a three-vessel aortic arch. The origins of the great vessels are patent. No evidence of hemo dynamically significant stenosis. Upper thorax: Mild centrilobular emphysema changes. IMPRESSION: 1. No evidence of dissection of the cervical internal carotid arteries or vertebral arteries or any e vidence of significant stenosis at the carotid bifurcations. 2. No evidence of intracranial high-grade stenosis or intracranial aneurysm.
--- NOTE | 2023-04-17 14:14 | P.HPIM ---
History of Present Illness This is a pleasant 72 years old male with past medical history of Coronary Artery Disease , status post stent in 2016, right testicular cancer status post surgical excision, Diabetes Mellitus, Hyperlipidemia, Hypertension, Osteoart hritis (OA), CKD stage III, Patient is somewhat poor historian and information were obtained from and daughter at bedside. patient presents because of dizziness of 2-3 weeks duration, gradually getting worse yesterday and today he was significantly more dizzy and worse, he was severely weak all over and he has hard time getting out of the bed, he could do that with the help of his yesterday but not today. His dizziness that really worse when he tried to sit up and sometimes when he tried to stand up. He has some what poor appetite but no vomiting diarrhea or pain. He denies any chest pain or discomfort. No shortness of breath or coughing. He says that he has frequent urination but no dysuria. No headache weakness or numbness in unilateral extremities. report difficulty controlling his sugar ranging between 200-400. Despite taking his diabetes medication. He denies smoking alcohol or illicit drugs. Vitas looks stable. Patient is mildly tachypneic and he has evidence of orthostatic hypotension with a drop of blood pressure systolic 145 on sitting and 120 nondistended Labs showing mild leukocytosis of 10.7, rest of the CBC is unremarkable, creatinine mildly elevated 1.35 which is at baseline. Sodium 136, potassium 5.2. Urinalysis is suspicious for infection CT of the brain: Mild enlarged ventricles due to central cervical atrophy area to exclude and PMH. Otherwise no acute intracranial process. CTA of the brain: No acute process EKG: Showing low voltage EKG with sinus rhythm at 64, T-wave inversion in V1 and V2., QTC is 389. In the emergency room patient received normal saline boluses and meclizine and Valium. Review of Systems Review of systems CONSTITUTIONAL: No fever, no malaise, no fatigue. HEENT: No recent visual problems or hearing problems. Denied any sore throat. CARDIOVASCULAR: No orthopnea, PND, no palpitations, no syncope. PULMONARY: No shortness of breath, no cough, no hemoptysis. GASTROINTESTINAL: No diarrhea, no nausea, no vomiting, no abdominal pain. Normoactive bowel sounds. NEUROLOGICAL: No headaches, no weakness, no numbness. HEMATOLOGICAL: Denies any bleeding or petechiae. GENITOURINARY: Denies any burning micturition, or urgency. MUSCULOSKELETAL/RHEUMATOLOGICAL: Denies any joint pain, swelling, or any muscle pain. ENDOCRINE: Denies any polyuria or polydipsia. Past Medical History Past Medical History: Coronary Artery Disease (CAD), Cancer, Chest Pain / Angina, Diabetes Mellitus, Eye Disorder, Hyperlipidemia, Hypertension, Myocardial Infarction (NM), Osteoarthritis (OA), Pneumonia, Renal Disease, Syncope, Vascular Disorder Additional Past Medical History / Comment(s): IDDM type II, neuropathy bilateral feet, R testicular cancer with surgery/chemo, pneumonia with sepsis, CKD stage III, R eye glaucoma, PVD, past R lower extremity cellulitis, past R great toe wound. Last Myocardial Infarction Date:: 04/05/16 History of Any Multi-Drug Resistant Organisms: None Reported Past Surgical History: Heart Catheterization With Stent Additional Past Surgical History / Comment(s): PCI with stent 2015, mitral valve repair at [facility], [facility], R testicular cancer with surgery/node dissection, bila teral cataract removals. Past Anesthesia/Blood Transfusion Reactions: No Reported Reaction Date of Last Stent Placement:: 04/05/16 Past Psychological History: No Psychological Hx Reported Smoking Status: Former smoker - Past Family History Mother Family Medical History: No Reported History Additional Family Medical History / Comment(s): Mother is . Father Family Medical History: Cancer Additional Family Medical History / Comment(s): Father at age 84 from prostate cancer. Brother(s) Family Medical History: Cancer Additional Family Medical History / Comment(s): Patient has 4 brothers with no major medical problems. Sister(s) Family Medical History: Cancer Additional Family Medical History / Comment(s): Patient has 2 sisters with no major medical problems. Daughter(s) Additional Family Medical History / Comment(s): Patient has 2 brothers with no major medical problems. Medications and Allergies Home Medications Medication Instructions Recorded Confirmed Type metFORMIN HCL [Glucophage] 1,000 mg PO DAILY 03/02/18 04/17/23 History metFORMIN HCL [Glucophage] 500 mg PO HS 12/31/18 04/17/23 History Aspirin 81 mg PO BID 09/12/21 04/17/23 History Dorzolamide-Timol 2.23%/0.68% 1 drop BOTH EYES BID 09/12/21 09/12/21 History [Cosopt] Latanoprost [Xalatan 0.005%] 1 drop RIGHT EYE HS 09/12/21 04/17/23 History Cefuroxime [Ceftin] 250 mg PO DIRECTED 04/17/23 04/17/23 History Insulin Glargine/Lixisenatide 50 unit SQ DAILY 04/17/23 04/17/23 History [Soliqua 100 Unit-33 Mcg/ml Pen] Losartan Potassium 50 mg PO BID 04/17/23 04/17/23 History Metoprolol Succinate [Metoprolol 25 mg PO DAILY 04/17/23 04/17/23 History Succinate ER] Omeprazole 20 mg PO DIRECTED 04/17/23 04/17/23 History Rosuvastatin [Crestor] 10 mg PO DAILY 04/17/23 04/17/23 History Tamsulosin [Flomax] 0.4 mg PO DIRECTED 04/17/23 04/17/23 History Allergies Allergy/AdvReac Type Severity Reaction Status Date / Time No Known Allergies Allergy Verified 04/17/23 09:32 Physical Exam Vitals: Vital Signs Temp Pulse Resp BP BP BP BP 04/17/23 12:24 145/109 120/65 142/73 04/17/23 12:00 68 20 164/78 04/17/23 11:30 65 18 165/79 04/17/23 09:32 97.2 F L 65 16 165/79 04/17/23 09:29 Pulse Ox 04/17/23 12:24 04/17/23 12:00 98 04/17/23 11:30 99 04/17/23 09:32 100 04/17/23 09:29 96 Intake and Output 04/16/23 04/17/23 04/17/23 22:59 06:59 14:59 Other: Weight 101.605 kg -GENERAL: The patient is alert and oriented x3, drowsy, not in any acute distress. Obese HEENT: Pupils are round and equally reacting to light. EOMI. No scleral icterus. No conjunctival pallor. Normocephalic, atraumatic. No pharyngeal erythema. No thyromegaly. CARDIOVASCULAR: S1 and S2 present. No murmurs, rubs, or gallops. PULMONARY: Chest is clear to auscultation, no wheezing , no crackles. ABDOMEN: Soft, nontender, nondistended, normoactive bowel sounds. No palpable organomegaly. MUSCULOSKELETAL: No joint swelling or deformity. EXTREMITIES: No cyanosis, clubbing, or pedal edema. NEUROLOGICAL: Gross neurological examination did not reveal any focal deficits. SKIN: No rashes. no petechiae. Results CBC & Chem 7: 04/17/23 10:11 04/17/23 10:11 Labs: Abnormal Lab Results - Last 24 Hours (Table) 04/17/23 04/17/23 04/17/23 Range/Units 10:11 10:11 10:50 WBC 10.7 H (3.8-10.6) k/uL Hct 38.2 L (39.0-53.0) % Neutrophils # 8.4 H (1.3-7.7) k/uL Sodium 136 L (137-145) mmol/L Potassium 5.2 H (3.5-5.1) mmol/L BUN 25 H (9-20) mg/dL Creatinine 1.35 H (0.66-1.25) mg/dL Urine Protein Trace H (Negative) Urine Blood Small H (Negative) Ur Leukocyte Esterase Moderate H (Negative) Urine RBC 19 H (0-5) /hpf Urine WBC 22 H (0-5) /hpf Urine Bacteria Rare H (None) /hpf Urine Mucus Rare H (None) /hpf Assessment and Plan Assessment: Acute to subacute vertigo over 2-3 weeks, gradually getting worse acute urinary tract infection Orthostatic hypotension Dehydration secondary to above Diabetes mellitus, hyperglycemia chronic kidney disease stage III, most likely diabetic nephropathy Hypertension Hyperlipidemia History of osteoarthritis History of coronary artery disease status post stenting History of right testicular cancers status post orchiectomy History of peripheral vascular disease Plan: Start ceftriaxone, follow-up urine culture Continue with normal saline hydration Neurology consult Continue with insulin sliding scale and check hemoglobin A1c Telemetry Labs and medication were reviewed.. Continue same treatment. Continue with symptomatic treatment. Resume home medication. Monitor lytes and vitals. DVT and GI prophylaxis. Further recommendations depends on the clinical course of the patient DVT prophylaxis: Subcutaneous heparin GI Prophylaxis: Pepcid PT/OT: Pending Prognosis is guarded
[2023-04-17 16:20] LABS: Glucose,Whole Blood 190 mg/dL (70-110)
[2023-04-17] MEDS: INSULIN ASPART (NovoLOG) 100 UNIT/ML VIAL SQ SCH ×2 (17:26→21:36)
[2023-04-17 20:20] LABS: Glucose,Whole Blood 154 mg/dL (70-110)
[2023-04-17] MEDS: metFORMIN 500 MG TAB PO SCH (21:36)
[2023-04-17] MEDS: ASPIRIN 81 MG PO SCH (21:36)
[2023-04-17] MEDS: LATANOPROST 0.005% OPHTH DROPS 2.5 ML BTL RIGHT EYE SCH (21:37)
[2023-04-18] MEDS: SODIUM CHLORIDE 0.9% 1,000 ML IV SCH ×3 (05:12→18:21)
[2023-04-18 05:33] LABS: Glucose,Whole Blood 97 mg/dL (70-110)
[2023-04-18] MEDS: INSULIN ASPART (NovoLOG) 100 UNIT/ML VIAL SQ SCH ×4 (06:22→21:28)
[2023-04-18] MEDS: metFORMIN 500 MG TAB PO SCH ×2 (06:23→21:28)
[2023-04-18 07:39] LABS: Basophils % (A) 0 %; Eosinophils # (A) 0.1 k/uL (0-0.7); Eosinophils % (A) 1 %; HCT 39.6 % (39.0-53.0); HGB 12.8 gm/dL (13.0-17.5); Lymphocytes # (A) 1.3 k/uL (1.0-4.8); Lymphocytes % (A) 12 %; MCH 28.4 pg (25.0-35.0); MCHC 32.3 g/dL (31.0-37.0); MCV 88.2 fL (80.0-100.0); Mean Platelet Volume 7.4; Monocytes # (A) 0.7 k/uL (0-1.0); Monocytes % (A) 7 %; Neutrophils # (A) 8.2 k/uL (1.3-7.7); Neutrophils % (A) 79 %; Platelet Count 299 k/uL (150-450); RBC 4.49 m/uL (4.30-5.90); RDW 13.9 % (11.5-15.5); WBC 10.4 k/uL (3.8-10.6)
[2023-04-18 07:49] LABS: African American GFR (CKD) 50 (>60 ml/min/1.73 sqM); Anion Gap 7 mmol/L; Blood Urea Nitrogen 19 mg/dL (9-20); Calcium 9.1 mg/dL (8.4-10.2); Carbon Dioxide 24 mmol/L (22-30); Chloride 107 mmol/L (98-107); Glucose 87 mg/dL (74-99); Non-African American GFR(CKD) 43 (>60 ml/min/1.73 sqM); Sodium 138 mmol/L (137-145)
--- NOTE | 2023-04-18 09:07 | P.PN ---
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 patient presents because of dizziness of 2-3 weeks duration, gradually getting worse yesterday and today he was significantly more dizzy and worse, he was severely weak all over and he has hard time getting out of the bed, he could do that with the help of his yesterday but not today. His dizziness that really worse when he tried to sit up and sometimes when he tried to stand up. He has some what poor appetite but no vomiting diarrhea or pain. He denies any chest pain or discomfort. No shortness of breath or coughing. He says that he has frequent urination but no dysuria. No headache weakness or numbness in unilateral extremities. report difficulty controlling his sugar ranging between 200-400. Despite taking his diabetes medication. He denies smoking alcohol or illicit drugs. Vitas looks stable. Patient is mildly tachypneic and he has evidence of orthostatic hypotension with a drop of blood pressure systolic 145 on sitting and 120 nondistended Labs showing mild leukocytosis of 10.7, rest of the CBC is unremarkable, creatinine mildly elevated 1.35 which is at baseline. Sodium 136, potassium 5.2. Urinalysis is suspicious for infection CT of the brain: Mild enlarged ventricles due to central cervical atrophy area to exclude and PMH. Otherwise no acute intracranial process. CTA of the brain: No acute process EKG: Showing low voltage EKG with sinus rhythm at 64, T-wave inversion in V1 and V2., QTC is 389. In the emergency room patient received normal saline boluses and meclizine and Valium. 04/18/2023 Patient reports improvement, mentation at baseline. His dizziness looks better however he still have unsteady gait when he tries to get up and walk, confirmed with the staff. Because of that he might benefit from physical therapy evaluation which is ordered Patient denies any new ear, vision or nose/mouth problem. He still pain a lot. He has external urinary catheter. Discussed with staff to check bladder scan. Urine culture still pending. Labs showing improvement with WBC slightly better. Creatinine slightly worse but he got IV contrast yesterday. Before going to keep him with normal saline 75 mL/h and ceftriaxone Neurologist on the case has been consulted Active Medications Generic Name Dose Route Start Last Admin Trade Name Brandt PRN Reason Stop Dose Admin Aspirin 81 mg 04/17/23 21:00 04/17/23 21:36 Aspirin 81 Mg PO 81 mg BID MUNIRA Administration Dextrose/Water 25 ml 04/17/23 13:23 Dextrose 50% Syringe 50 Ml IVP PER PROTOCOL PRN Hypoglycemia Protocol Dextrose/Water 50 ml 04/17/23 13:23 Dextrose 50% Syringe 50 Ml IVP PER PROTOCOL PRN Hypoglycemia Protocol Sodium Chloride 1,000 mls @ 20 mls/hr 04/17/23 13:00 04/17/23 13:10 Saline 0.9% IV 20 mls/hr .Q24H MUNIRA Administration Sodium Chloride 1,000 mls @ 75 mls/hr 04/17/23 14:15 04/18/23 05:12 Saline 0.9% IV Not Given .[id number] MUNIRA Ceftriaxone Sodium 1 gm/ 50 mls @ 100 mls/hr 04/17/23 15:00 04/17/23 14:55 Sodium Chloride IVPB 100 mls/hr Q24H MUNIRA Administration Protocol Insulin Aspart 0 unit 04/17/23 17:30 04/18/23 06:22 Insulin Aspart (Novolog) 100 Unit/Ml Vial SQ Not Given ACHS [facility] Protocol Latanoprost 1 drops 04/17/23 21:00 04/17/23 21:37 Latanoprost 0.005% Ophth Drops 2.5 Ml Btl RIGHT EYE Not Given HS MUNIRA Metformin HCl 1,000 mg 04/18/23 07:30 04/18/23 06:23 Metformin 500 Mg Tab PO 1,000 mg [id number] MUNIRA Administration Metformin HCl 500 mg 04/17/23 21:00 04/17/23 21:36 Metformin 500 Mg Tab PO 500 mg HS MUNIRA Administration Metoprolol Succinate 25 mg 04/18/23 09:00 Metoprolol Succinate (Er) 25 Mg Tab.Er.24h PO DAILY MUNIRA Naloxone HCl 0.2 mg 04/17/23 12:49 Naloxone 0.4 Mg/Ml 1 Ml Vial IV Q2M PRN Opioid Reversal Tamsulosin HCl 0.4 mg 04/18/23 09:00 Tamsulosin 0.4 Mg Cap.Er.24h PO DAILY MUNIRA Objective - Vital Signs Vital signs: Vital Signs Temp 98.3 F 04/18/23 07:00 Pulse 71 04/18/23 07:00 Resp 17 04/18/23 07:00 BP 146/83 04/18/23 07:00 Pulse Ox 98 04/18/23 07:00 FiO2 Intake & Output 04/17/23 04/18/23 04/18/23 18:59 06:59 18:59 Output Total 500 2300 800 Balance -500 -2300 -800 Weight 101.605 kg Output: Urine 500 2300 800 Other: Voiding Method External Catheter # Voids 2 - Exam GENERAL: The patient is alert and oriented x3, not in any acute distress. Well developed, well nourished. HEENT: Pupils are round and equally reacting to light. EOMI. No scleral icterus. No conjunctival pallor. Normocephalic, atraumatic. No pharyngeal erythema. No thyromegaly. CARDIOVASCULAR: S1 and S2 present. No murmurs, rubs, or gallops. PULMONARY: Chest is clear to auscultation, no wheezing , no crackles. ABDOMEN: Soft, nontender, nondistended, normoactive bowel sounds. No palpable organomegaly. MUSCULOSKELETAL: No joint swelling or deformity. EXTREMITIES: No cyanosis, clubbing, or pedal edema. NEUROLOGICAL: Gross neurological examination did not reveal any focal deficits. SKIN: No rashes. no petechiae. - Labs CBC & Chem 7: 04/18/23 06:47 04/18/23 06:47 Labs: Abnormal Lab Results - Last 24 Hours (Table) 04/17/23 04/17/23 04/17/23 Range/Units 10:11 10:11 10:50 WBC 10.7 H (3.8-10.6) k/uL Hgb (13.0-17.5) gm/dL Hct 38.2 L (39.0-53.0) % Neutrophils # 8.4 H (1.3-7.7) k/uL Sodium 136 L (137-145) mmol/L Potassium 5.2 H (3.5-5.1) mmol/L BUN 25 H (9-20) mg/dL Creatinine 1.35 H (0.66-1.25) mg/dL POC Glucose (mg/dL) (70-110) mg/dL Urine Protein Trace H (Negative) Urine Blood Small H (Negative) Ur Leukocyte Esterase Moderate H (Negative) Urine RBC 19 H (0-5) /hpf Urine WBC 22 H (0-5) /hpf Urine Bacteria Rare H (None) /hpf Urine Mucus Rare H (None) /hpf 04/17/23 04/17/23 04/18/23 Range/Units 16:18 20:19 06:47 WBC (3.8-10.6) k/uL Hgb 12.8 L (13.0-17.5) gm/dL Hct (39.0-53.0) % Neutrophils # 8.2 H (1.3-7.7) k/uL Sodium (137-145) mmol/L Potassium (3.5-5.1) mmol/L BUN (9-20) mg/dL Creatinine (0.66-1.25) mg/dL POC Glucose (mg/dL) 190 H 154 H (70-110) mg/dL Urine Protein (Negative) Urine Blood (Negative) Ur Leukocyte Esterase (Negative) Urine RBC (0-5) /hpf Urine WBC (0-5) /hpf Urine Bacteria (None) /hpf Urine Mucus (None) /hpf 04/18/23 Range/Units 06:47 WBC (3.8-10.6) k/uL Hgb (13.0-17.5) gm/dL Hct (39.0-53.0) % Neutrophils # (1.3-7.7) k/uL Sodium (137-145) mmol/L Potassium (3.5-5.1) mmol/L BUN (9-20) mg/dL Creatinine 1.60 H (0.66-1.25) mg/dL POC Glucose (mg/dL) (70-110) mg/dL Urine Protein (Negative) Urine Blood (Negative) Ur Leukocyte Esterase (Negative) Urine RBC (0-5) /hpf Urine WBC (0-5) /hpf Urine Bacteria (None) /hpf Urine Mucus (None) /hpf Assessment and Plan Assessment: Acute to subacute vertigo over 2-3 weeks, gradually getting worse acute urinary tract infection Orthostatic hypotension Dehydration secondary to above Diabetes mellitus, hyperglycemia chronic kidney disease stage III, most likely diabetic nephropathy Hypertension Hyperlipidemia History of osteoarthritis History of coronary artery disease status post stenting History of right testicular cancers status post orchiectomy History of peripheral vascular disease Plan: Start ceftriaxone, follow-up urine culture Continue with normal saline hydration Neurology consult Continue with insulin sliding scale and check hemoglobin A1c Telemetry check bladder scan Labs and medication were reviewed.. Continue same treatment. Continue with symptomatic treatment. Resume home medication. Monitor lytes and vitals. DVT and GI prophylaxis. Further recommendations depends on the clinical course of the patient DVT prophylaxis: Subcutaneous heparin GI Prophylaxis: Pepcid PT/OT: Pending Prognosis is guarded
[2023-04-18] MEDS: ASPIRIN 81 MG PO SCH ×2 (09:11→21:28)
[2023-04-18] MEDS: METOPROLOL SUCCINATE (ER) 25 MG TAB.ER.24H PO SCH (09:11)
[2023-04-18] MEDS: TAMSULOSIN 0.4 MG CAP.ER.24H PO SCH (09:11)
[2023-04-18 11:04] LABS: Glucose,Whole Blood 208 mg/dL (70-110)
[2023-04-18 16:12] LABS: Glucose,Whole Blood 236 mg/dL (70-110)
[2023-04-18] MEDS: ACETAMINOPHEN TAB 325 MG TAB PO PRN (18:20)
[2023-04-18 20:07] LABS: Glucose,Whole Blood 311 mg/dL (70-110)
--- NOTE | 2023-04-18 20:48 | P.CNNES ---
History of Present Illness Consult date: 04/18/23 Requesting physician: Salvador Hope Reason for Consult: Vertigo History of Present Illness: Patient is a 72-year-old male with history of diabetes, hypertension came to the hospital by ambulance yesterday at 9:22 AM for vertigo. Patient states that he used to walk normally, without any assistive device. In the last 2 weeks, he has developed constant frequency of urination, every 15 minutes he wants to pass urine. If he does not make it on time, he loses control of the urine in his pants. He is not eating, got weaker and weaker and developed difficulty with balancing. On Wednesday, 2 days ago, he woke up with difficulty getting out of bed. He was feeling dizzy. His helped him sit up on the side of the bed. About half an hour later he was able to get up by himself and able to walk with his cane. However yesterday on Wednesday, he just could not get up. Then she she try to have him sit up, he would fall over. He also notices everything was spinning. He continues to have frequency of urination. Patient believes that he received cortisone shot in the left knee about 2 weeks ago and the symptoms started shortly after that. At present he has difficulty getting himself up, request 2-3 people. Patient says that today the dizziness has resolved. He is continues to have problems with balance. He has been in bed mostly. He has undergone orthostatics, and he was able to standup although he felt slightly dizzy. Patient says his memory is fine. He has developed new onset of urgency and difficulty controlling urine. Patient denies any slurred speech, facial droop, loss of vision, diplopia, does complain of slight headache in the frontal region no sinus issues. Denies any recent upper respiratory infection, no runny nose, no loss of hearing although he does not hear as good. EMS flow sheet not available in the chart. Patient's vitals on arrival blood pressure 165/79, pulse is 65, temperature 97.2. Blood test shows WBC 10.7 hemoglobin 13.0, platelets 307. Sodium 136 potassium 5.2, BUN 25 creatinine 1.35. UA shows moderate amount of leukocyte Estrace, 22 WBC and rare bacteria. EKG showed sinus rhythm with first-degree AV block. CT head revealed mild ventriculomegaly may be due to central cervical atrophy. Correlate to exclude a component of NPH. Otherwise no acute intracranial abnormality seen. Mild chronic ethmoid and maxillary sinus disease. On my review, there is very minimal ethmoid disease if at all. There is mild mucosal thickening of the bilateral maxillary sinuses. There is moderate amount of wax in the right EAC. Agree with evidence of increased dilation of the lateral ventricle as compared to the amount of cortical atrophy. Patient denies any tobacco use, alcohol. He does have diabetes since 1991 which is controlled. Also has hypertension. Patient admits to having neuropathy in the feet, with burning sensation in the toes of both feet. Review of Systems Constitutional: Denies chills, Denies fever Eyes: right loss of peripheral vision, right loss of vision Ears: right: ear discharge, bilateral: decreased hearing, deny: earache Ears, nose, mouth and throat: Denies headache, Denies sore throat Cardiovascular: Denies chest pain, Denies shortness of breath Respiratory: Reports excessive sputum, Denies cough Gastrointestinal: Denies abdominal pain, Denies diarrhea, Denies nausea, Denies vomiting Musculoskeletal: Reports neck pain, Denies low back pain, Denies myalgias Integumentary: Denies pruritus, Denies rash Neurological: Reports as per HPI Psychiatric: Denies anxiety, Denies depression Endocrine: Denies fatigue, Denies weight change Past Medical History Past Medical History: Coronary Artery Disease (CAD), Cancer, Diabetes Mellitus, Eye Disorder, Hyperlipidemia, Hypertension, Myocardial Infarction ([place]), Osteoarthritis (OA), Pneumonia, Vascular Disorder Additional Past Medical History / Comment(s): IDDM type II, neuropathy bilateral feet, R testicular cancer with surgery/chemo (1984), pneumonia with sepsis, R eye glaucoma, PVD, past R lower extremity cellulitis, past R little toe wound. Last Myocardial Infarction Date:: 04/05/16 History of Any Multi-Drug Resistant Organisms: None Reported Past Surgical History: Heart Catheterization With Stent Additional Past Surgical History / Comment(s): PCI with stent 2015, mitral valve repair at [facility] 2018, [place], R testicular cancer with surgery/node dissection, bilateral cataract removals, Right foot pinky toe amputation Past Anesthesia/Blood Transfusion Reactions: No Reported Reaction Date of Last Stent Placement:: 04/05/16 Past Psychological History: No Psychological Hx Reported Additional Psychological History / Comment(s): Pt resides with his spouse. He is independent. Smoking Status: Former smoker Past Alcohol Use History: None Reported Additional Past Alcohol Use History / Comment(s): Smoked pipes at age 31, then switched to cigars, 4-5 per day. Quit in 2009. Past Drug Use History: None Reported Additional Drug Use History / Comment(s): pt started smoking a pipe at ag 31 then swithced to cigars. was smoking 4-5 cigars a day -quit 2009 denies any m edical marijuana, marijuana, street drug or alcohol use. He lives at home with his . 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 - Past Family History Mother Family Medical History: No Reported History Additional Family Medical History / Comment(s): Mother is . Father Family Medical History: Cancer Additional Family Medical History / Comment(s): Father at age 84 from prostate cancer. Brother(s) Family Medical History: Cancer Additional Family Medical History / Comment(s): Patient has 4 brothers with no major medical problems. Sister(s) Family Medical History: Cancer Additional Family Medical History / Comment(s): Patient has 2 sisters with no major medical problems. Daughter(s) Additional Family Medical History / Comment(s): Patient has 2 brothers with no major medical problems. Medications and Allergies Home Medications Medication Instructions Recorded Confirmed Type metFORMIN HCL [Glucophage] 1,000 mg PO DAILY 03/02/18 04/17/23 History metFORMIN HCL [Glucophage] 500 mg PO HS 12/31/18 04/17/23 History Aspirin 81 mg PO BID 09/12/21 04/17/23 History Dorzolamide-Timol 2.23%/0.68% 1 drop BOTH EYES HS 09/12/21 04/17/23 History [Cosopt] Latanoprost [Xalatan 0.005%] 1 drop RIGHT EYE HS 09/12/21 04/17/23 History Cefuroxime [Ceftin] 250 mg PO DIRECTED 04/17/23 04/17/23 History Insulin Glargine/Lixisenatide 50 unit SQ DAILY 04/17/23 04/17/23 History [Soliqua 100 Unit-33 Mcg/ml Pen] Losartan Potassium 50 mg PO BID 04/17/23 04/17/23 History Metoprolol Succinate [Metoprolol 25 mg PO DAILY 04/17/23 04/17/23 History Succinate ER] Omeprazole 20 mg PO DIRECTED 04/17/23 04/17/23 History Rosuvastatin [Crestor] 10 mg PO DAILY 04/17/23 04/17/23 History Tamsulosin [Flomax] 0.4 mg PO DIRECTED 04/17/23 04/17/23 History Allergies Allergy/AdvReac Type Severity Reaction Status Date / Time No Known Allergies Allergy Verified 04/17/23 09:32 Physical Examination - Vital Signs Vital Signs: Vital Signs Temp Pulse Pulse Resp BP BP BP 04/18/23 13:42 98.7 F 71 18 154/79 130/75 04/18/23 07:00 98.3 F 71 17 146/83 04/18/23 00:20 98.0 F 69 18 150/96 04/17/23 19:00 97.5 F L 81 18 150/83 04/17/23 15:56 98.0 F 69 18 150/83 04/17/23 15:35 97.8 F 74 20 135/66 BP Pulse Ox 04/18/23 13:42 146/77 98 04/18/23 07:00 98 04/18/23 00:20 96 04/17/23 19:00 94 L 04/17/23 15:56 99 04/17/23 15:35 97 Intake and Output 04/17/23 04/18/23 04/18/23 22:59 06:59 14:59 Output Total 2300 800 Balance -2300 -800 Output: Urine 2300 800 Other: Voiding Method External Catheter # Voids 1 2 # Bowel Movements 1 Weight 101.605 kg Patient is an elderly male, very pleasant, in no acute distress. Patient is alert awake oriented to time place and person. Speech and language functions are normal. Patient can name and repeat very well. No aphasia or dysarthria. Attention, concentration and fund of knowledge is adequate. Detail cognitive function testing deferred. On cranial nerve examination, pupils are equal, round and reacting to light, visual smith revealed right homonymous hemianopia. Patient states he has chronic visual field deficits on the right side. He has very minimal vision in the right eye, and also has some visual field deficit nasally of the left eye. This is his baseline. Denies any visual symptoms. Extraocular muscles are intact with no nystagmus. Face is symmetric, tongue protrudes to the midline. Palatal elevation and sensation normal, hearing is slightly decreased and shoulder shrug normal, facial sensation normal. On muscle strength testing, there is left pronator drift however the strength is normal in arms and legs distally and proximally. Deep tendon reflexes are symmetric 1 at the brachioradialis, 1+ at the biceps, 1+ at the knees, plantars downgoing bilaterally. Sensory to touch is equal with no neglect on double simultaneous stimulation. Cerebellar function showed no ataxia for [id number] testing. No dysdiadochokinesia. No ataxia for [id number] testing on either side. Tone and bulk of muscles normal. Gait deferred.. On general examination, there is no carotid bruit or murmur, S1-S2 audible. Chest is clear on consultation. Abdomen is soft nontender. No organomegaly, bowel sounds present. Peripheral pulses are present. No edema. Results - Laboratory Findings CBC and BMP: 04/18/23 06:47 04/18/23 06:47 Abnormal Lab Findings: Abnormal Labs 04/17/23 04/17/23 04/17/23 10:11 10:11 10:50 WBC 10.7 H Hgb Hct 38.2 L Neutrophils # 8.4 H Sodium 136 L Potassium 5.2 H BUN 25 H Creatinine 1.35 H POC Glucose (mg/dL) Hemoglobin A1c Urine Protein Trace H Urine Blood Small H Ur Leukocyte Esterase Moderate H Urine RBC 19 H Urine WBC 22 H Urine Bacteria Rare H Urine Mucus Rare H 04/17/23 04/17/23 04/18/23 16:18 20:19 06:47 WBC Hgb Hct Neutrophils # Sodium Potassium BUN Creatinine POC Glucose (mg/dL) 190 H 154 H Hemoglobin A1c 11.1 H Urine Protein Urine Blood Ur Leukocyte Esterase Urine RBC Urine WBC Urine Bacteria Urine Mucus 04/18/23 04/18/23 04/18/23 06:47 06:47 11:03 WBC Hgb 12.8 L Hct Neutrophils # 8.2 H Sodium Potassium BUN Creatinine 1.60 H POC Glucose (mg/dL) 208 H Hemoglobin A1c Urine Protein Urine Blood Ur Leukocyte Esterase Urine RBC Urine WBC Urine Bacteria Urine Mucus Assessment and Plan Assessment: * New onset, 2 week history of frequency of urination, incontinence and 2 days history of gait imbalance. CT had revealed possibility of hydrocephalus. Probable normal pressure hydrocephalus. Rule out acute CVA. * Probable acute UTI * Diabetes, poorly controlled * Hypertension * Coronary artery disease * Diabetic retinopathy * Legal blindness right eye Plan: * MRI of the brain to evaluate for possible normal pressure hydrocephalus, rule out acute CVA * CTA of head and neck revealed no evidence of dissection of the cervical internal carotid arteries or vertebral arteries or any evidence of significant stenosis at the carotid bifurcations. No evidence of intracranial high-grade stenosis or intracranial aneurysm. * Continue aspirin 81 mg daily. * Hemoglobin A1c 11.1. Recommend optimize control of diabetes to target A1c < 7.0 * Fasting a.m. lipid panel * May need 2-D echo, if any evidence of CVA on MRI brain. * Check B12, folate, MMA, B6. * Patient currently on ceftriaxone for acute UTI. * PT OT. * Further management based upon above test results. * Dr. Shaun Larios Will resume neurology service from the morning. Thank you for the consult.
[2023-04-18] MEDS: LATANOPROST 0.005% OPHTH DROPS 2.5 ML BTL RIGHT EYE SCH (21:28)
[2023-04-19 05:30] LABS: Glucose,Whole Blood 117 mg/dL (70-110)
[2023-04-19] MEDS: metFORMIN 500 MG TAB PO SCH ×2 (06:21→21:21)
[2023-04-19] MEDS: SODIUM CHLORIDE 0.9% 1,000 ML IV SCH ×3 (06:21→21:19)
[2023-04-19] MEDS: INSULIN ASPART (NovoLOG) 100 UNIT/ML VIAL SQ SCH ×4 (06:22→21:20)
[2023-04-19 08:45] LABS: Basophils # (A) 0.04 X 10*3/uL (0.00-0.10); Basophils % (A) 0.4 %; HCT 37.7 % (39.6-50.0); HGB 12.3 d/dL (13.0-17.0); Lymphocytes # (A) 1.24 X 10*3/uL (0.90-5.00); MCH 28.7 pg (27.0-32.0); MCHC 32.6 d/dL (32.0-37.0); MCV 88.1 FL (80.0-97.0); Mean Platelet Volume 9.4 FL (9.5-12.2); Monocytes # (A) 1.06 X 10*3/uL (0.20-1.00); Monocytes % (A) 11.1 %; NRBC Per 100 WBC 0 X 10*3/uL (0.00-0.01); Neutrophils # (A) 7.04 X 10*3/uL (1.80-7.70); Platelet Count 305 X 10*3/uL (140-440); RBC 4.28 X 10*6/uL (4.40-5.60); RDW 13.3 % (11.5-14.5); WBC 9.53 X 10*3/uL (4.50-10.00)
[2023-04-19] MEDS: TAMSULOSIN 0.4 MG CAP.ER.24H PO SCH (09:58)
[2023-04-19] MEDS: METOPROLOL SUCCINATE (ER) 25 MG TAB.ER.24H PO SCH (09:58)
[2023-04-19] MEDS: ASPIRIN 81 MG PO SCH ×2 (09:58→21:20)
[2023-04-19 10:58] LABS: Glucose,Whole Blood 286 mg/dL (70-110)
[2023-04-19 14:16] VITALS: BMI 29.5
[2023-04-19] MEDS: ACETAMINOPHEN TAB 325 MG TAB PO PRN (14:45)
--- NOTE | 2023-04-19 14:51 | P.PN ---
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 patient presents because of dizziness of 2-3 weeks duration, gradually getting worse yesterday and today he was significantly more dizzy and worse, he was severely weak all over and he has hard time getting out of the bed, he could do that with the help of his yesterday but not today. His dizziness that really worse when he tried to sit up and sometimes when he tried to stand up. He has some what poor appetite but no vomiting diarrhea or pain. He denies any chest pain or discomfort. No shortness of breath or coughing. He says that he has frequent urination but no dysuria. No headache weakness or numbness in unilateral extremities. report difficulty controlling his sugar ranging between 200-400. Despite taking his diabetes medication. He denies smoking alcohol or illicit drugs. Vitas looks stable. Patient is mildly tachypneic and he has evidence of orthostatic hypotension with a drop of blood pressure systolic 145 on sitting and 120 nondistended Labs showing mild leukocytosis of 10.7, rest of the CBC is unremarkable, c reatinine mildly elevated 1.35 which is at baseline. Sodium 136, potassium 5.2. Urinalysis is suspicious for infection CT of the brain: Mild enlarged ventricles due to central cervical atrophy area to exclude and PMH. Otherwise no acute intracranial process. CTA of the brain: No acute process EKG: Showing low voltage EKG with sinus rhythm at 64, T-wave inversion in V1 and V2., QTC is 389. In the emergency room patient received normal saline boluses and meclizine and Valium. 04/18/2023 Patient reports improvement, mentation at baseline. His dizziness looks better however he still have unsteady gait when he tries to get up and walk, confirmed with the staff. Because of that he might benefit from physical therapy evaluation which is ordered Patient denies any new ear, vision or nose/mouth problem. He still pain a lot. He has external urinary catheter. Discussed with staff to check bladder scan. Urine culture still pending. Labs showing improvement with WBC slightly better. Creatinine slightly worse but he got IV contrast yesterday. Before going to keep him with normal saline 75 mL/h and ceftriaxone Neurologist on the case has been consulted 04/19. Patient seen and examined. Stated dizziness has improved. MRI brain pending REVIEW OF SYSTEMS: CONSTITUTIONAL: No fever, no malaise,. CARDIOVASCULAR: No chest pain, no palpitations, no syncope. PULMONARY: No shortness of breath, no cough, GASTROINTESTINAL: No diarrhea, no nausea, no vomiting, no abdominal pain. NEUROLOGICAL: No headaches, no weakness, PHYSICAL EXAMINATION: GENERAL: The patient is alert and oriented x3, not in any acute distress. Well developed, well nourished. HEENT: Pupils are round and equally reacting to light. EOMI. No scleral icterus. No conjunctival pallor. Normocephalic, atraumatic. No pharyngeal erythema. No thyromegaly. CARDIOVASCULAR: S1 and S2 present. No murmurs, rubs, or gallops. PULMONARY: Chest is clear to auscultation, no wheezing or crackles. ABDOMEN: Soft, nontender, nondistended, normoactive bowel sounds. No palpable organomegaly. MUSCULOSKELETAL: No joint swelling or deformity. EXTREMITIES: No cyanosis, clubbing, or pedal edema. NEUROLOGICAL: Gross neurological examination did not reveal any focal deficits. SKIN: No rashes. Assessment and plan Acute vertigo over 2-3 weeks, gradually getting worse urinary tract infection Orthostatic hypotension Dehydration secondary to above Diabetes mellitus, hyperglycemia chronic kidney disease stage III, most likely diabetic nephropathy Hypertension Hyperlipidemia History of osteoarthritis History of coronary artery disease status post stenting History of right testicular cancers status post orchiectomy History of peripheral vascular disease Monitor vital signs Monitor CBC Monitor CMP Continue telemetry monitoring Continue ceftriaxone, follow-up urine culture Continue with normal saline hydration MRI brain ordered. Neurology ordered vitamin B12, folic acid levels, MMA, B6 Continue with insulin sliding scale and check hemoglobin A1c PT OT consulted Labs and medication were reviewed.. Continue same treatment. Continue with symptomatic treatment. Resume home medication. Monitor labs and vitals. DVT and GI prophylaxis. Further recommendations as per clinical course of the patient Dictation was produced using [employer] dictation software. please excuse any grammatical, word or spelling errors. Objective - Vital Signs Vital signs: Vital Signs Temp 98.5 F 04/19/23 07:59 Pulse 73 04/19/23 07:59 Resp 17 04/19/23 07:59 BP 147/75 04/19/23 07:59 Pulse Ox 95 04/19/23 07:59 FiO2 Intake & Output 04/18/23 04/19/23 04/19/23 18:59 06:59 18:59 Output Total 800 350 Balance -800 -350 Output: Urine 800 350 Other: Voiding Method Incontinent Incontinent # Voids 1 # Bowel Movements 1 - Labs CBC & Chem 7: 04/19/23 05:46 04/18/23 06:47 Labs: Abnormal Lab Results - Last 24 Hours (Table) 04/18/23 04/18/23 04/18/23 Range/Units 06:47 11:03 16:10 RBC (4.40-5.60) X 10*6/uL Hgb (13.0-17.0) d/dL Hct (39.6-50.0) % MPV (9.5-12.2) FL Monocytes # (0.20-1.00) X 10*3/uL POC Glucose (mg/dL) 208 H 236 H (70-110) mg/dL Hemoglobin A1c 11.1 H (<=6.0) % 04/18/23 04/19/23 04/19/23 Range/Units 20:06 05:29 05:46 RBC 4.28 L (4.40-5.60) X 10*6/uL Hgb 12.3 L (13.0-17.0) d/dL Hct 37.7 L (39.6-50.0) % MPV 9.4 L (9.5-12.2) FL Monocytes # 1.06 H (0.20-1.00) X 10*3/uL POC Glucose (mg/dL) 311 H 117 H (70-110) mg/dL Hemoglobin A1c (<=6.0) % Microbiology - Last 24 Hours (Table) 04/17/23 10:50 Urine Culture - Preliminary Urine,Voided Gram Neg Bacilli
[2023-04-19 16:47] LABS: Glucose,Whole Blood 227 mg/dL (70-110)
[2023-04-19 20:36] LABS: Glucose,Whole Blood 345 mg/dL (70-110)
[2023-04-19] MEDS ORDERED: MELATONIN 5 MG TABLET PO SCH (21:00)
[2023-04-19] MEDS: LATANOPROST 0.005% OPHTH DROPS 2.5 ML BTL RIGHT EYE SCH (21:20)
[2023-04-19 22:41] LABS: BUN/Creat Ratio 13.27 Ratio (12.00-20.00); Blood Urea Nitrogen 19.9 mg/dL (9.0-27.0); Calcium 9.1 mg/dL (8.7-10.3); Carbon Dioxide 21.7 mmol/L (21.6-31.8); Chloride 110 mmol/L (96-109); Chol/HDL Ratio 4.16 Ratio; Glucose 116 mg/dL (70-110); LDL Cholesterol,Calculated 45.2 mg/dL (0.0-131.0); Potassium 4.8 mmol/L (3.5-5.5); Sodium 143 mmol/L (135-145)
[2023-04-20 06:05] LABS: Glucose,Whole Blood 119 mg/dL (70-110)
[2023-04-20] MEDS: INSULIN ASPART (NovoLOG) 100 UNIT/ML VIAL SQ SCH ×2 (06:08→12:12)
[2023-04-20] MEDS: metFORMIN 500 MG TAB PO SCH (06:40)
[2023-04-20 07:57] VITALS: BP 125/71; PULSE 72; RESP 17; TEMP 98.5
[2023-04-20] MEDS: ASPIRIN 81 MG PO SCH (08:09)
[2023-04-20] MEDS: METOPROLOL SUCCINATE (ER) 25 MG TAB.ER.24H PO SCH (08:09)
[2023-04-20] MEDS: TAMSULOSIN 0.4 MG CAP.ER.24H PO SCH (08:09)
[2023-04-20] MEDS: SODIUM CHLORIDE 0.9% 1,000 ML IV SCH ×2 (09:12→12:24)
[2023-04-20 11:53] LABS: Glucose,Whole Blood 187 mg/dL (70-110)
--- NOTE | 2023-04-20 12:39 | P.DS ---
Providers Date of admission: 04/17/23 12:50 Expected date of discharge: 04/20/23 Attending physician: Ryan Jacobo MD Consults: 04/17/23 12:49 Consult Physician Routine Consulting Provider: Tatyana Bonilla Consult Reason/Comments: vertigo Do you want consulting provider notified?: Yes Primary care physician: [facility] Course: Discharge diagnoses; Acute vertigo over 2-3 weeks, gradually getting worse urinary tract infection Orthostatic hypotension Dehydration secondary to above Diabetes mellitus, hyperglycemia chronic kidney disease stage III, most likely diabetic nephropathy Hypertension Hyperlipidemia History of osteoarthritis History of coronary artery disease status post stenting History of right testicular cancers status post orchiectomy History of peripheral vascular disease Hospital course; This is a pleasant 72 years old male with past medical history of Coronary Artery Disease , status post stent in 2016, 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 patient presents because of dizziness of 2-3 weeks duration, gradually getting worse yesterday and today he was significantly more dizzy and worse, he was severely weak all over and he has hard time getting out of the bed, he could do that with the help of his yesterday but not today. His dizziness that really worse when he tried to sit up and sometimes when he tried to stand up. He has some what poor appetite but no vomiting diarrhea or pain. He denies any chest pain or discomfort. No shortness of breath or coughing. He says that he has frequent urination but no dysuria. No headache weakness or numbness in unilateral extremities. report difficulty controlling his sugar ranging between 200-400. Despite taking his diabetes medication. He denies smoking alcohol or illicit drugs. Vitas looks stable. Patient is mildly tachypneic and he has evidence of orthostatic hypotension with a drop of blood pressure systolic 145 on sitting and 120 nondistended Labs showing mild leukocytosis of 10.7, rest of the CBC is unremarkable, creatinine mildly elevated 1.35 which is at baseline. Sodium 136, potassium 5.2. Urinalysis is suspicious for infection CT of the brain: Mild enlarged ventricles due to central cervical atrophy area to exclude and PMH. Otherwise no acute intracranial process. CTA of the brain: No acute process EKG: Showing low voltage EKG with sinus rhythm at 64, T-wave inversion in V1 and V2., QTC is 389. In the emergency room patient received normal saline boluses and meclizine and Valium. 04/18/2023 Patient reports improvement, mentation at baseline. His dizziness looks better however he still have unsteady gait when he tries to get up and walk, confirmed with the staff. Because of that he might benefit from physical therapy evaluation which is ordered Patient denies any new ear, vision or nose/mouth problem. He still pain a lot. He has external urinary catheter. Discussed with staff to check bladder scan. Urine culture still pending. Labs showing improvement with WBC slightly better. Creatinine slightly worse but he got IV contrast yesterday. Before going to keep him with normal saline 75 mL/h and ceftriaxone Neurologist on the case has been consulted 04/19. Patient seen and examined. Stated dizziness has improved. MRI brain pending 04/20. Patient seen and examined. CTA of head and neck revealed no evidence of dissection of the cervical internal carotid arteries or vertebral arteries or any evidence of significant stenosis at the carotid bifurcations. No evidence of intracranial high-grade stenosis or intracranial aneurysm. Neurology recommended MRI brain but can't be performed in the hospital because of patient having metal in her eye. Discussed with neurology, they recommended outpatient follow-up with neurologist. PHYSICAL EXAMINATION: GENERAL: The patient is alert and oriented x3, not in any acute distress. Well developed, well nourished. HEENT: Pupils are round and equally reacting to light. EOMI. No scleral icterus. No conjunctival pallor. Normocephalic, atraumatic. No pharyngeal erythema. No thyromegaly. CARDIOVASCULAR: S1 and S2 present. No murmurs, rubs, or gallops. PULMONARY: Chest is clear to auscultation, no wheezing or crackles. ABDOMEN: Soft, nontender, nondistended, normoactive bowel sounds. No palpable organomegaly. MUSCULOSKELETAL: No joint swelling or deformity. EXTREMITIES: No cyanosis, clubbing, or pedal edema. NEUROLOGICAL: Gross neurological examination did not reveal any focal deficits. SKIN: No rashes. Dictation was produced using [employer] software. please excuse any grammatical, word or spelling errors. Patient Condition at Discharge: Fair Plan - Discharge Summary Discharge Rx Participant: No New Discharge Prescriptions: Continue metFORMIN HCL [Glucophage] 1,000 mg PO DAILY metFORMIN HCL [Glucophage] 500 mg PO HS Metoprolol Succinate [Metoprolol Succinate ER] 25 mg PO DAILY Losartan Potassium 50 mg PO BID Tamsulosin [Flomax] 0.4 mg PO DIRECTED Insulin Glargine/Lixisenatide [Soliqua 100 Unit-33 Mcg/ml Pen] 50 unit SQ DAILY Aspirin 81 mg PO BID Dorzolamide-Timol 2.23%/0.68% [Cosopt] 1 drop BOTH EYES HS Latanoprost [Xalatan 0.005%] 1 drop RIGHT EYE HS Rosuvastatin [Crestor] 10 mg PO DAILY Omeprazole 20 mg PO DIRECTED Discontinued Cefuroxime [Ceftin] 250 mg PO DIRECTED Discharge Medication List metFORMIN HCL [Glucophage] 1,000 mg PO DAILY 03/02/18 [History] metFORMIN HCL [Glucophage] 500 mg PO HS 12/31/18 [History] Aspirin 81 mg PO BID 09/12/21 [History] Dorzolamide-Timol 2.23%/0.68% [Cosopt] 1 drop BOTH EYES HS 09/12/21 [History] Latanoprost [Xalatan 0.005%] 1 drop RIGHT EYE HS 09/12/21 [History] Insulin Glargine/Lixisenatide [Soliqua 100 Unit-33 Mcg/ml Pen] 50 unit SQ DAILY 04/17/23 [History] Losartan Potassium 50 mg PO BID 04/17/23 [History] Metoprolol Succinate [Metoprolol Succinate ER] 25 mg PO DAILY 04/17/23 [History] Omeprazole 20 mg PO DIRECTED 04/17/23 [History] Rosuvastatin [Crestor] 10 mg PO DAILY 04/17/23 [History] Tamsulosin [Flomax] 0.4 mg PO DIRECTED 04/17/23 [History] Follow up Appointment(s)/Referral(s): Cassius Richardson MD [Primary Care Provider] - 1-2 days Shaun Vizcaino MD [STAFF PHYSICIAN] - 1 Week Discharge Disposition: HOME SELF-CARE
== END 2023-04-20 14:10 | disposition home or self-care (01) | DRG 149 ==
LOC: EC 09:22 → 4SSUR 12:50
PROVIDERS: ADMIT Internal Medicine; ATTEND Internal Medicine
DX: R42 Dizziness and giddiness (principal); N39.0 Urinary tract infection, site not specified; B96.89 Other specified bacterial agents as the cause of diseases classified elsewhere; E11.22 Type 2 diabetes mellitus with diabetic chronic kidney disease; E11.649 Type 2 diabetes mellitus with hypoglycemia without coma; E11.51 Type 2 diabetes mellitus with diabetic peripheral angiopathy without gangrene; Z87.01 Personal history of pneumonia (recurrent); M19.90 Unspecified osteoarthritis, unspecified site; I25.2 Old myocardial infarction; E78.5 Hyperlipidemia, unspecified; E11.319 Type 2 diabetes mellitus with unspecified diabetic retinopathy without macular edema; R35.0 Frequency of micturition; E86.0 Dehydration; I95.1 Orthostatic hypotension; G93.89 Other specified disorders of brain; H54.8 Legal blindness, as defined in USA; H66.90 Otitis media, unspecified, unspecified ear; I12.9 Hypertensive chronic kidney disease with stage 1 through stage 4 chronic kidney disease, or unspecified chronic kidney disease; E11.42 Type 2 diabetes mellitus with diabetic polyneuropathy; I25.10 Atherosclerotic heart disease of native coronary artery without angina pectoris; I44.0 Atrioventricular block, first degree; J32.0 Chronic maxillary sinusitis; N18.30 Chronic kidney disease, stage 3 unspecified; Z79.82 Long term (current) use of aspirin; Z79.84 Long term (current) use of oral hypoglycemic drugs; Z79.4 Long term (current) use of insulin; Z85.47 Personal history of malignant neoplasm of testis; Z87.891 Personal history of nicotine dependence; Z95.5 Presence of coronary angioplasty implant and graft; Z79.899 Other long term (current) drug therapy; Z98.42 Cataract extraction status, left eye; Z98.41 Cataract extraction status, right eye
CPT/HCPCS: 36415; 51702; 70450; 70496; 70498; 80048; 80061; 81001; 82607; 82746; 83036; 83921; 84207; 85025; 87077; 87086; 87186; 93005; 96361; 96365; 96375; 99285

== ENCOUNTER → 2024-06-15 | Outpatient (CLI) | payer MEDICARE, BC ==
--- NOTE | 2024-06-15 16:07 | US ---
EXAMINATION TYPE: US carotid duplex BILAT DATE OF EXAM: 06/15/2024 COMPARISON: NONE CLINICAL INDICATION: Male, 73 years old with history of R42 Dizziness; TECHNIQUE: Grayscale, color Doppler and spectral Doppler evaluation of the bilateral carotid systems and vertebral arteries.Indirect Doppler criteria was utilized. FINDINGS: EXAM MEASUREMENTS: RIGHT: Peak Systolic Velocity (PSV) cm/sec ----- Right CCA: 74 ----- Right ICA: 93 ----- Right ECA: 95 ICA/CCA ratio: 1.3 RIGHT: End Diastole cm/sec ----- Right CCA: 11 ----- Right ICA: 18 ----- Right ECA: 7 LEFT: Peak Systolic Velocity (PSV) cm/sec ----- Left CCA: 84 ----- Left ICA: 96 ----- Left ECA: 80 ICA/CCA ratio: 1.1 LEFT: End Diastole cm/sec ----- Left CCA: 20 ----- Left ICA: 7 ----- Left ECA: 24 VERTEBRALS (direction of flow): Right Vertebral: Antegrade Left Vertebral: Antegrade Rhythm: Normal SENIOR MARKETING ANALYST NOTES: Intimal thickening and atherosclerotic plaque seen bilaterally, no elevated veloci ties seen. IMPRESSION: Right: Less than 50% stenosis of the carotid bifurcation. Normal (no stenosis)=ICA PSV < 125 cm/s: ra bolivar < 2.0: ICA EDV<40 cm/s. Left: Less than 50% stenosis of the carotid bifurcation. Normal (no stenosis)=ICA PSV < 125 cm/s: rat io < 2.0: ICA EDV<40 cm/s. Criteria for Assigning % of Stenosis / Diameter reduction (Estimation based on the indirect measurements of the internal carotid artery velocities (ICA PSV). 1. Normal (no stenosis)=ICA PSV < 125 cm/s: ratio < 2.0: ICA EDV<40 cm/s. 2. Less than 50% stenosis=ICA PSV < 125 cm/s: ratio < 2.0: ICA EDV<40 cm/s. 3. 50 to 69% stenosis=ICA PSV of 125 to 230 cm/s: ration 2.0 ? 4.0: ICA EDV 40-100 cm/s. 4. Greater than 70% stenosis to near occlusion= ICA PSV > 230 cm/s: ratio > 4.0: ICA EDV > 100 cm/s. 5. Near occlusion= ICA PSV velocities may be low or undetectable: variable ratio and ICA EDV. 6. Total occlusion=unable to detect flow. [facility], , 06/15/2024 4:04 PM
== END | disposition home or self-care (01) ==
LOC: RADUSWWP 15:14
PROVIDERS: ATTEND Internal Medicine Geriatric Medicine
CPT/HCPCS: 93880

== ENCOUNTER → 2024-11-13 | Outpatient (CLI) | payer MEDICARE, BC ==
--- NOTE | 2024-11-13 10:29 | CT ---
EXAMINATION TYPE: CT brain wo con DATE OF EXAM: 11/13/2024 COMPARISON: CT brain April 17, 2023 CLINICAL INDICATION: Male, 74 years old with history of G45.9 TRANSIENT CEREBRAL ISCHEMIC ATTACK, UNS PECIFIED, TIA TECHNIQUE: CT scan of the head is performed without contrast. CT DLP: 1228.10 mGycm. Automated Exposure Control for Dose Reduction was Utilized. FINDINGS: There is no acute intracranial hemorrhage or midline shift identified. There is mild to m oderate diffuse ventricular and sulcal prominence with ventricular prominence greater than degree of sulcal effacement similar to prior. There is mild to moderate low-attenuation in the periventricular white matter redemonstrated. Left globe prosthesis redemonstrated. Right-sided aphakia redemonstrate d. The visualized sinuses are clear. IMPRESSION: No acute intracranial hemorrhage or midline shift. No significant change from most recen t prior CT. If clinical concern for acute stroke persist further investigation with MRI study may BE warranted [facility], , 11/13/2024 10:27 AM
== END | disposition home or self-care (01) ==
LOC: RADCTMAIN 09:42
PROVIDERS: ATTEND Internal Medicine Geriatric Medicine
DX: G45.9 Transient cerebral ischemic attack, unspecified (principal); H27.01 Aphakia, right eye
CPT/HCPCS: 70450

== ENCOUNTER → 2025-02-21 | Outpatient (CLI) | payer MEDICARE, BC ==
[2025-02-21 10:09] LABS: African American GFR (CKD) 56 (>60 ml/min/1.73 sqM); Blood Urea Nitrogen 41 mg/dL (9-20); Non-African American GFR(CKD) 49 (>60 ml/min/1.73 sqM)
--- NOTE | 2025-02-21 11:48 | CT ---
4 EXAMINATION TYPE: CT brain wo con DATE OF EXAM: 02/21/2025 COMPARISON: 11/13/2024 CLINICAL INDICATION: Male, 74 years old with history of CVA; PHH, cva TECHNIQUE: CT scan of the head is performed without contrast. CT DLP: 1236.[address] CTDI: mGy Automated exposure control for dose reduction was used. FINDINGS: There is no acute intracranial hemorrhage or midline shift identified. There is diffuse v entricular and sulcal prominence consistent with diffuse age-related cerebral atrophy. There is low- attenuation in the periventricular white matter consistent with chronic small vessel ischemic change. The globes are intact and the visualized sinuses are clear. IMPRESSION: No acute intracranial hemorrhage or midline shift. There is diffuse age-related cerebra l atrophy and chronic small vessel ischemic change noted. [facility], , 02/21/2025 11:46 AM
--- NOTE | 2025-02-21 12:19 | CT ---
EXAMINATION TYPE: CT angio head neck DATE OF EXAM: 02/21/2025 11:13 AM COMPARISON: None. CLINICAL INDICATION: Male, 74 years old with history of CVA, cva, TECHNIQUE: Axially acquired helical CT Angiogram of the Neck was obtained with and without contrast. Axial images are supplemented with coronal and sagittal MIP reconstructions. 3D reconstructions were also performed and were post-processed at an independent workstation. Estimated carotid stenosis was calculated using the NASCET criteria. Contrast CTA of the [place] was performed 3-D recons truction imaging obtained at a separate workstation. IV CONTRAST: with IV Contrast, patient injected with 65 mL of Isovue 370. (None if empty) CT DLP: 1236.5 mGycm, Automated exposure control for dose reduction was used. FINDINGS: NECK: Right carotid system: Mild plaque is seen of the right common carotid artery. There is mild plaque a lso noted at the carotid bulb and proximal ICA. No significant diameter reduction. ECA is patent. Right vertebral artery appears unremarkable. Left carotid system: Mild plaque is seen of the left common carotid artery. There is mild plaque als o noted at the carotid bulb and proximal ICA. No significant diameter reduction. ECA is patent. Lef t vertebral artery appears unremarkable. BRAIN: Vertebrobasilar system as well as intracranial portions of the internal carotid arteries and their ma jodie tributaries are patent. I do not see evidence for sizable aneurysm or vascular malformation. Pl ease note MRI provides greater sensitivity and specificity. Visualized brain appears grossly unremar kable. IMPRESSION: 1. No evidence for hemodynamically significant stenosis at the carotid bifurcations. No significant diameter reduction to account for the patient's symptoms. 2. No evidence for intracranial aneurysm or high-grade stenosis. [facility], , 02/21/2025 12:17 PM
== END | disposition home or self-care (01) ==
LOC: RADCTMAIN 09:17
PROVIDERS: ATTEND Psychiatry & Neurology Neurology
DX: I67.9 Cerebrovascular disease, unspecified (principal); G31.1 Senile degeneration of brain, not elsewhere classified; I67.82 Cerebral ischemia
CPT/HCPCS: 82565; 84520; 70496; 70450; 70498; 36415; Q9967

== ENCOUNTER → 2025-03-02 | Outpatient (CLI) | payer MEDICARE, BC ==
--- NOTE | 2025-04-04 15:54 | EM ---
EVENT MONITOR INDICATION: Paroxysmal atrial fibrillation. FINDINGS: Underlying rhythm is sinus with an average heart rate of 59 beats per minute. Heart rate varied from 34 beats per minute to 130 beats per minute. There were no episodes of sustained ventricular or supraventricular tachyarrhythmias. There were no episodes of more than 2-second pauses and episodes of sinus bradycardia are noted. The slowest heart rate was 34 beats per minute. This 30-day event monitor shows sinus rhythm with PVCs and PACs without any episodes of documented atrial fibrillation. There were runs of nonsustained VT noted. CONCLUSIONS: This is an abnormal 30-day event monitor showing sinus rhythm with frequent ventricular ectopy. PVC burden is 11%. We did not documented episodes of atrial fibrillation. MMODL / IJN: [id number] /
== END | disposition home or self-care (01) ==
LOC: RADECHMAIN 13:52
PROVIDERS: ATTEND Psychiatry & Neurology Neurology
DX: I48.0 Paroxysmal atrial fibrillation (principal); I49.3 Ventricular premature depolarization
CPT/HCPCS: 93270